=== PATIENT | male | born 1945 | race Caucasian/White ===

== ENCOUNTER 2021-09-12 18:15 | Inpatient (IN) | payer OTHER ==
[~2021-09-12] VITALS: Ht 185.4 cm; Wt 119.2 kg
[~2021-09-12 18:15] MED LIST: CYCL10TA19 PO; NAPR-514 PO
--- NOTE | 2021-09-12 20:09 | PDOC1 ---
History and Physical Date of Admission Date of Admission DATE: 09/12/21 TIME: 20:09 Identification/Chief Complaint Chief Complaint Weakness, left leg pain, renal failure Source Source: Caregiver, Chart review, Patient History of Present Illness History of Present Illness Mr Lozano is a 75yo male [place] with PMHx atrial fibrillation, hypertension, hyperlipidemia, type 2 diabetes mellitus, coronary artery disease, hypothyroidism, and generalized osteoarthritis who presented to [facility] in [place] on 09/10/2021 after he was doing poorly having difficulty walking at home even with walker and he remembers waking up in the kitchen facedown and was able to crawl to the couch contact EMS to be brought to the hospital. He thinks the day prior 09/09/2021 he was diagnosed with pneumonia at the [facility], he initially requested to go to [facility] but was diverted to [facility] due to high volume at [facility]. There he noted a week of progressive weakness and shortness of breath. He had CTPA which showed that there is no evidence of acute or chronic pulmonary emboli. There is bronchial wall thickening compatible with nonspecific bro nchitis. There are at least 2-4 mm solid noncalcified pulmonary nodules, cardiomegaly with 3-vessel coronary vascular calcification. EKG was afib. WBC 24.6, Hb 14.7, platelets 281 NA 132, K3.5, BUN 25, CR 2.3, glucose 172, bilirubin 1.3, AST 340, ALT 76, alk phos 118, high-sensitivity troponin I 46, TSH 3, COVID-19 PCR negative Was admitted with sepsis, treated aggressively with IV fluid, started on meropenem and vancomycin. Over the course of 3 days troponin peaked at 4 9711 9 lactic acid peaked at 4.1 on 1110 AST 77 ALT 150 albumin 2, level 11 NA 120 7K3.8, BUN 47, CR 4.3 vancomycin trough 26.2. Given his elevated troponin, cardiology was consulted at [facility]. Given his worsening renal function is called for transfer to [facility] for consideration of nephrology consultation. Seen bedside patient notes that before his initial admission at [facility] he was doing much worse than he currently is but he still can't walk on his own, thinks his left leg looks better. Past Medical History Past Medical History Significant for atrial fibrillation, hypertension, hyperlipidemia, type 2 diabetes mellitus, coronary artery disease, hypothyroidism, and generalized osteoarthritis. Cardiovascular: AFIB, CAD, HTN, Hyperlipidemia Endocrine: Diabetes, Hypothyroidism Past Surgical History Past Surgical History: Other (Cardiac ablation) Family History Family History He is apparently , has a girlfriend that is planning to move to stay with him. He has 5 daughters and 3 sons. He does not smoke, drink alcohol or use recreational drugs. Family History: Diabetes, Heart Disease, High Cholestrol, Hypertension Social History Smoke: No ALCOHOL: none Drugs: None Current Medications Current Medications Active Scripts Active Naproxen 500 Mg Tablet 1 Tab PO BID PRN Cyclobenzaprine Hcl 10 Mg Tablet 1 Tab PO TID PRN Allergies Allergies: Coded Allergies: Penicillins (Verified Allergy, Intermediate, 09/12/21) "i think im allergic to penicillin" ROS General: YES: Fatigue, Malaise; No: Chills, Night Sweats, Appetite, Other PSYCHOLOGICAL ROS: YES: Anxiety; No: Behavioral Disorder, Concentration difficultie, Decreased libido, Depression, Disorientation, Hallucinations, Hostility, Irritablity, Memory difficulties, Mood Swings, Obsessive thoughts, Physical abuse, Sexual abuse, Sleep disturbances, Suicidal ideation, Other Eyes: No Blurry vision, No Decreased vision, No Double vision, No Dry eyes, No Excessive tearing, No Eye Pain, No Itchy Eyes, No Loss of vision, No Photophobia, No Scotomata, No Uses contacts, No Uses glasses, No Other HEENT: No: Heacaches, Visual Changes, Hearing change, Nasal congestion, Nasal discharge, Oral lesions, Sinus pain, Sore Throat, Epistaxis, Sneezing, Snoring, Tinnitus, Vertigo, Vocal changes, Other ALLERGY AND IMMUNOLOGY: No: Hives, Insect Bite Sensitivity, Itchy/Watery Eyes, Nasal Congestion, Post Nasal Drip, Seasonal Allergies, Other Hematological and Lymphatic: No: Bleeding Problems, Blood Clots, Blood Transfusions, Brusing, Night Sweats, Pallor, Swollen Lymph Nodes, Other ENDOCRINE: No: Breast Changes, Galactorrhea, Hair Pattern Changes, Hot Flashes, Malaise/lethargy, Mood Swings, Palpitations, Polydipsia/polyuria, Skin Changes, Temperature Intolerance, Unexpected Weight Changes, Other Breast: No New/Changing Breast Lumps, No Nipple changes, No Nipple discharge, No Other Respiratory: No: Cough, Hemoptysis, Orthopnea, Pleuritic Pain, Shortness of breath, SOB with excertion, Sputum Changes, Stridor, Tachypnea, Wheezing, Other Cardiovascular: No Chest Pain, No Palpitations, No Orthopnea, No Paroxysmal Noc. Dyspnea, No Edema, No Lt Headedness, No Other Gastrointestinal: No Nausea, No Vomiting, No Abdominal Pain, No Diarrhea, No Constipation, No Melena, No Hematochezia, No Other Genitourinary: No Dysuria, No Frequency, No Incontinence, No Hematuria, No Retention, No Discharge, No Urgency, No Pain, No Flank Pain, No Other, No , No , No , No , No , No , No Musculoskeletal: Yes Gait Disturbance, Yes Joint Swelling, Yes Muscular Weakness; No Joint Pain, No Joint Stiffness, No Muscle Pain, No Pain In:, No Swelling In:, No Other Neurological: Yes Gait Disturbance; No Behavorial Changes, No Bowel/Bladder ControlChng, No Confusion, No Dizziness, No Headaches, No Impaired Coord/balance, No Memory Loss, No Numbness/Tingling, No Seizures, No Speech Problems, No Tremors, No Visual Changes, No Weakness, No Other Skin: Yes Rash, Yes Skin Lesion Changes Physical Exam General: Alert, Oriented X3, Cooperative, No acute distress HEENT: Atraumatic, PERRLA, EOMI, Mucous membr. moist/pink Lungs: Clear to auscultation, Normal air movement Heart: irregularly irregular Abdomen: Normal bowel sounds, Soft, No tenderness, No hepatosplenomegaly, No masses Extremities: No clubbing, No cyanosis, Normal pulses Skin: Other (His left leg is more erythematous, with lymphangitis extending all the way to the left groin. Bruising to left tibial plateau noted) Neuro: Normal speech, Normal tone, Sensation intact, Cranial nerves 3-12 NL, Reflexes 2+, Other (decreased strength bilateral legs) Psych/Mental Status: Mental status NL, Mood NL Images Images 09/12/2021 Chest radiograph: The heart is not enlarged. Aortic calcifications. Minimal left lung base patchy opacities likely atelectasis. No pleural effusion or pneumothorax. IMPRESSION: Minimal left lung base patchy opacities likely atelectasis. CTA CHEST 09/10/2021 7:35 AM FINDINGS: The thyroid gland is normal in appearance. Calcified mediastinal and right hilar lymph nodes suggest sequela prior granulomatous exposure. There is a right hilar lymph node measuring 0.9 cm. There are no pathologically enlarged axillary, mediastinal or hilar lymph nodes. The heart size is enlarged. Three-vessel coronary artery vascular calcifications are present. No significant pericardial effusion. Thoracic aorta is normal in course and caliber. Moderate calcified atheromatous plaque is identified involving the thoracic aorta. There is adequate opacification of the pulmonary arterial system. There there are no filling defects within the pulmonary arterial system to suggest acute or chronic pulmonary embolus. There is a 4 mm solid noncalcified pulmonary nodule in the right middle lobe (series 4, image 82). There is a 4 mm solid noncalcified pulmonary nodule in the left upper lobe (series 4, image 33). There are no pulmonary infiltrates. There are no pleural effusions. No pulmonary vascular congestion or pneumothorax. Visualized portions of the upper abdomen are within normal limits. Fusiform thickening of the adrenal glands may reflect adenomatous hyperplasia. No suspicious osseous lesions are visualized. IMPRESSION: There is no evidence for acute or chronic pulmonary embolism. There is bronchial wall thickening compatible nonspecific bronchitis. There are at least two 4 mm solid noncalcified pulmonary nodules as detailed above.Fleischner guidelines for incidentally detected pulmonary nodules suggests no routine follow-up for low risk patients and optional CT at 12 months for high risk patients with solid noncalcified pulmonary nodules less than 6 mm in size. Cardiomegaly with three-vessel coronary artery vascular calcifications. VTE Prophylaxis Ordered VTE Prophylaxis Devices: No VTE Pharmacological Prophylaxi: Yes Assessment/Plan Assessment/Plan A/P: Fall at home - with weakness. PT/OT for ADLs, may need skilled services on d/c Sepsis - was present prior to admission. Cont antibiotics LLE cellulitis - likely related to traumatic fall, will obtain left tibia radiograph. Cont antibiotics, will change to rocephin, doxycycline WILLY on CKD - baseline Cr ~2, now 4.3. Will consult nephrology for recs on further care Transaminitis - large transaminase elevation, not in shock, will monitor trend, check hepatitis serologies, TSH, iron, ferritin Troponin elevation - HS trop peaked at 497, likely demand ischemia Mild acute probable diastolic CHF secondary to IV hydration fluid overload Triple vessel disease CAD - on chest CTA. sees Dr. Henry at [facility] AFIB - s/p ablation. is permanent, rate controlled on Cardizem. Xarelto for stroke prophylaxis. Follow with [facility] cardiology, Dr. Henry Hypertension - cont home meds Hyperlipidemia - statin Hypothyroidism - on levothyroxine DM2 - sliding scale insulin Severe protein calorie malnutrition - due to infection, will have ice grinder to see FEN - cardiac diet PPX - xarelto FULL CODE Dispo - inpatient for above Justifications for Admission Other Justification FRED WATSON MD Sep 12, 2021 20:09
[2021-09-12] MEDS ORDERED: ONDANSETRON PF 4 MG/2 ML VIAL. IVP PRN ×2 (20:15→22:45)
[2021-09-12] MEDS ORDERED: ACETAMINOPHEN 325 MG TABLET. PO PRN (20:15)
[2021-09-12] MEDS ORDERED: fentaNYL PF VIAL 100 MCG/2 ML VIAL IVP PRN (20:15)
[2021-09-12] MEDS: DOXYCYCLINE HYCLATE 100 MG in IV DEXTROSE 5% 100ML 100 ML IV SCH (21:43)
[2021-09-12] MEDS: cefTRIAXone IV Push 1 GM VIAL. IVP SCH (21:43)
[2021-09-12] MEDS ORDERED: ACETAMINOPHEN 500 MG TABLET PO PRN (22:45)
[2021-09-12 23:00] VITALS: BP 95/64
[2021-09-12] MEDS: HEPARIN for SUB-Q USE 5,000 UNIT/ML VIAL. SQ SCH (23:04)
[2021-09-12] MEDS ORDERED: rOPINIRole 1 MG TABLET. PO ONE (23:04)
[2021-09-12] MEDS: ALBUTEROL SULFATE 2.5 MG/3 ML NEBU. NEB PRN (23:46)
[2021-09-13 03:00] VITALS: BP 155/65
[2021-09-13] MEDS: HEPARIN for SUB-Q USE 5,000 UNIT/ML VIAL. SQ SCH ×3 (05:25→22:00)
[2021-09-13] MEDS: LEVOTHYROXINE 75 MCG TABLET PO SCH (05:31)
[2021-09-13 05:53] LABS: BASO % 0 % (0-3); EOS % 0 % (0-3); HEMATOCRIT 32.4 % (39.0-53.0); HEMOGLOBIN 10.7 g/dL (13.0-17.5); LYMPH # 0.6 x10^3/uL (1.0-4.8); LYMPH % 8 % (24-48); MEAN CORPUSCULAR HEMOGLOBIN 27 pg (25-35); MEAN CORPUSCULAR HGB CONC 33 g/dL (31-37); MEAN CORPUSCULAR VOLUME 81 fL (79-100); MONO # 0.5 x10^3/uL (0.0-1.1); MONO % 7 % (0-9); NEUT # 5.7 x10^3/uL (1.8-7.7); NEUT % 84 % (31-73); PLATELET COUNT 170 x10^3/uL (140-400); RED CELL DISTRIBUTION WIDTH 18.1 % (11.5-14.5); WHITE BLOOD COUNT 6.8 x10^3/uL (4.0-11.0)
[2021-09-13 06:04] LABS: ALBUMIN 2.1 g/dL (3.4-5.0); ALBUMIN/GLOBULIN RATIO 0.6 (1.0-1.7); CALCIUM 7.9 mg/dL (8.5-10.1); CREATININE 4.6 mg/dL (0.7-1.3); GFR 12.6; TOTAL BILIRUBIN 0.4 mg/dL (0.2-1.0); TOTAL PROTEIN 5.8 g/dL (6.4-8.2)
[2021-09-13 08:00] VITALS: BP 146/71
[2021-09-13] MEDS: DOXYCYCLINE HYCLATE 100 MG in IV DEXTROSE 5% 100ML 100 ML IV SCH ×2 (09:31→20:44)
[2021-09-13] MEDS: busPIRone 10 MG TABLET. PO SCH ×2 (09:32→20:45)
[2021-09-13] MEDS: CYANOCOBALAMIN (VITAMIN B-12) 100 MCG TABLET. PO SCH (09:32)
[2021-09-13] MEDS: LACTOBACILLUS RHAMNOSUS GG 1 CAPSULE. PO SCH ×2 (09:32→20:45)
[2021-09-13] MEDS: CHOLECALCIFEROL (VITAMIN D3) 1,000 UNIT TABLET PO SCH (09:32)
[2021-09-13] MEDS: SENNOSIDES/DOCUSATE 8.6/50MG TABLET. PO SCH ×2 (09:33→20:45)
[2021-09-13] MEDS: rOPINIRole 1 MG TABLET. PO SCH ×3 (09:33→20:45)
[2021-09-13] MEDS: TRIAMCINOLONE ACETONIDE 0.5% TOPICAL CREAM 15GM TUBE. TP SCH ×2 (09:34→20:44)
--- NOTE | 2021-09-13 10:40 | RAD ---
EXAM: AP and lateral views left tibia/fibula DATE: 09/13/2021 7:42 AM INDICATION: Reason: Fall, left tibia plateau injury, pain / Spl. Instructions: / History: . COMPARISON: No Prior FINDINGS: Patellar enthesophytes. No knee joint effusion. No acute fracture or dislocation. Vascular calcificat ions are seen. Diffuse soft tissue swelling about the mid left lower leg to the ankle IMPRESSION: 1. No evidence of acute fracture or dislocation. 2. Evaluation of the tibial plateau is limited, can be further assessed with dedicated knee radiogra phs or CT if there is clinical concern for tibial plateau fracture. 3. Diffuse soft tissue swelling. Electronically signed by: Oziel Zavala MD (09/13/2021 10:38 AM) [id number]
--- NOTE | 2021-09-13 10:54 | NUR ---
SW following. Discussed with RN, pt from home with girlfriend, room air, cardiac diet. PT/OT ordered. RN advised no SW needs at this time. SW will continue to follow.
[2021-09-13 11:00] VITALS: BP 147/67
--- NOTE | 2021-09-13 11:17 | PDOC2 ---
CONSULT Date of Consult Date of Consult DATE: 09/13/21 TIME: 11:10 Reason for Consult Reason for Consult: WILLY Referring Physician Referring Physician: WALTER Identification/Chief Complaint Chief Complaint FALL Source Source: Chart review History of Present Illness Reason for Visit: HX OBTAINED FROM CHART. PT IS A VERY POOR HISTORIAN. THIS IS A 75 YR OLD WHO FELL AT HOME. WOKE UP ON THE KITCHEN FLOOR. ADMITTED TO [facility] WITH SOB. CONCERNS OF PNEUMONIA. TX THERE WITH ANTIBIOTICS. APPARENTLY THERE WAS CONCERNS OF PE AND A CTA WAS DONE THERE. HE THEN DEVELOPED [facility] AND WAS TRANSFERRED HERE. PT HAS CKD STAGE 3 WITH BASELINE CR OF ABOUT 2.0. CR NOW AT 4.3. NON OLIGURIC AND HEMODYNAMICALLY STABLE. VANC LEVEL OF 26.2. ALSO BEING EVALUATED BY CARDIOLOGY FOR INCREASING TROPONIN LEVELS. HE DOES NOT KNOW OF ANY HX OR PROBLEMS Past Medical History Cardiovascular: AFIB, CAD, HTN, Hyperlipidemia Renal/: Chronic renal insuff Endocrine: Diabetes, Hypothyroidism Past Surgical History Past Surgical History: Other (Cardiac ablation) Family History Family History: Diabetes, Heart Disease, High Cholestrol, Hypertension Social History No ALCOHOL: none Drugs: None Lives: with Family Current Medications Current Medications Current Medications Ceftriaxone Sodium (Rocephin) 1 gm Q24H IVP Last administered on 09/12/21at 21:43; Start 09/12/21 at 21:00 Doxycycline Hyclate 100 mg/ Dextrose 100 ml @ 50 mls/hr Q12HR IV Last administered on 09/13/21at 09:31; Start 09/12/21 at 21:00 Heparin Sodium (Porcine) (Heparin Sodium) 5,000 unit Q8HRS SQ Last administered on 09/13/21at 05:25; Start 09/12/21 at 22:00 Ondansetron HCl (Zofran) 4 mg PRN Q4HRS PRN IVP NAUSEA/VOMITING; Start 09/12/21 at 20:15; Stop 09/12/21 at 23:06; Status DC Acetaminophen (Tylenol) 650 mg PRN Q6HRS PRN PO MILD PAIN / TEMP > 100.3'F; Start 09/12/21 at 20:15; Stop 09/12/21 at 23:07; Status DC Fentanyl Citrate (Fentanyl 2ml Vial) 25 mcg PRN Q3HRS PRN IVP SEVERE PAIN 7-10; Start 09/12/21 at 20:15 Tramadol HCl (Ultram) 50 mg PRN Q6HRS PRN PO MOD TO SEVERE PAIN; Start 1 11/12/20 at 20:15 Acetaminophen (Tylenol) 1,000 mg PRN Q6HRS PRN PO pain/fever; Start 09/12/21 at 22:45 Ropinirole HCl (Requip) 2 mg TID PO Last administered on 09/13/21 09:33; Start 09/13/21 at 09:00 Vitamin D (Vitamin D3) 1,000 unit DAILY PO Last administered on 09/13/21 09:32; Start 09/13/21 at 09:00 Cyanocobalamin (Vitamin B-12) 200 mcg DAILY PO Last administered on 09/13/21 09:32; Start 09/13/21 at 09:00 Famotidine (Pepcid) 20 mg QHS PO ; Start 09/13/21 at 21:00 Fluticasone Propionate (Flonase) 2 spray QHS NS ; Start 09/13/21 at 21:00 Albuterol Sulfate (Ventolin Neb Soln) 2.5 mg PRN Q6HRS PRN NEB SHORTNESS OF BR EATH Last administered on 09/12/21at 23:46; Start 09/12/21 at 23:00 Lactobacillus Rhamnosus (Culturelle) 1 cap BID PO Last administered on 09/13/21at 09:32; Start 09/13/21 at 09:00 Levothyroxine Sodium (Synthroid) 75 mcg DAILY06 PO Last administered on 09/13/21 05:31; Start 09/13/21 at 06:00 Ondansetron HCl (Zofran) 4 mg PRN Q6HRS PRN IVP NAUSEA/VOMITING; Start 09/12/21 at 22:45 Triamcinolone Acetonide (Kenalog 0.5%) 1 wood BID TP Last administered on 09/13/21 09:34; Start 09/13/21 at 09:00 Buspirone HCl (Buspar) 10 mg BID PO Last administered on 09/13/21 09:32; Start 09/13/21 at 09:00 Diltiazem HCl (Cardizem 24hr Cd) 240 mg DAILY PO Last administered on 11/12/21at 09:33; Start 09/13/21 at 09:00 Ropinirole HCl (Requip) 2 mg TID ONCE PO Last administered on 09/12/21at 23:04; Start 09/12/21 at 23:04; Stop 09/12/21 at 23:05; Status DC Senna/Docusate Sodium (Senna Plus) 1 tab BID PO Last administered on 09/13/21at 09:33; Start 09/13/21 at 09:00 Active Scripts Active Naproxen 500 Mg Tablet 1 Tab PO BID PRN Cyclobenzaprine Hcl 10 Mg Tablet 1 Tab PO TID PRN Allergies Allergies: Coded Allergies: Penicillins (Verified Allergy, Intermediate, 09/12/21) "i think im allergic to penicillin" ROS Review of System UNABLE TO OBTAIN FROM THIS PT HE IS A VERY POOR HISTORIAN Physical Exam General: Alert, Oriented X3, Cooperative, No acute distress HEENT: Atraumatic Lungs: Clear to auscultation Heart: Regular rate Abdomen: Normal bowel sounds, Soft Extremities: No cyanosis Skin: No breakdown Neuro: Normal speech Psych/Mental Status: Mental status NL, Mood NL MUSCULOSKELETAL: No joint tenderness, No deformity, No swelling Vitals VITALS Vital Signs Date Time Temp Pulse Resp B/P (MAP) Pulse Ox O2 Delivery O2 Flow Rate FiO2 09/13/21 09:33 82 146/71 09/13/21 08:00 98.1 18 99 98.1 09/13/21 03:00 Room Air 09/12/21 23:00 2.0 Labs Labs Laboratory Tests Test 09/13/21 04:15 09/13/21 04:20 09/13/21 07:46 White Blood Count 6.8 x10^3/uL (4.0-11.0) Red Blood Count 4.00 x10^6/uL (4.30-5.70) Hemoglobin 10.7 g/dL (13.0-17.5) Hematocrit 32.4 % (39.0-53.0) Mean Corpuscular Volume 81 fL (79-100) Mean Corpuscular Hemoglobin 27 pg (25-35) Mean Corpuscular Hemoglobin Concent 33 g/dL (31-37) Red Cell Distribution Width 18.1 % (11.5-14.5) Platelet Count 170 x10^3/uL (140-400) Neutrophils (%) (Auto) 84 % (31-73) Lymphocytes (%) (Auto) 8 % (24-48) Monocytes (%) (Auto) 7 % (0-9) Eosinophils (%) (Auto) 0 % (0-3) Basophils (%) (Auto) 0 % (0-3) Neutrophils # (Auto) 5.7 x10^3/uL (1.8-7.7) Lymphocytes # (Auto) 0.6 x10^3/uL (1.0-4.8) Monocytes # (Auto) 0.5 x10^3/uL (0.0-1.1) Eosinophils # (Auto) 0.0 x10^3/uL (0.0-0.7) Basophils # (Auto) 0.0 x10^3/uL (0.0-0.2) Sodium Level 127 mmol/L (136-145) Potassium Level 4.0 mmol/L (3.5-5.1) Chloride Level 96 mmol/L (98-107) Carbon Dioxide Level 24 mmol/L (21-32) Anion Gap 7 (6-14) Blood Urea Nitrogen 48 mg/dL (8-26) Creatinine 4.6 mg/dL (0.7-1.3) Estimated GFR (Cockcroft-Gault) 12.6 BUN/Creatinine Ratio 10 (6-20) Glucose Level 131 mg/dL (70-99) Calcium Level 7.9 mg/dL (8.5-10.1) Ferritin 266 ng/mL (26-388) Total Bilirubin 0.4 mg/dL (0.2-1.0) Aspartate Amino Transf (AST/SGOT) 372 U/L (15-37) Alanine Aminotransferase (ALT/SGPT) 146 U/L (16-63) Alkaline Phosphatase 121 U/L (46-116) Total Protein 5.8 g/dL (6.4-8.2) Albumin 2.1 g/dL (3.4-5.0) Albumin/Globulin Ratio 0.6 (1.0-1.7) Troponin I High Sensitivity 45 ng/L (4-75) Thyroid Stimulating Hormone (TSH) 1.573 uIU/mL (0.358-3.74) Glucose (Fingerstick) 133 mg/dL (70-99) Laboratory Tests Test 09/13/21 04:15 09/13/21 04:20 09/13/21 07:46 White Blood Count 6.8 x10^3/uL (4.0-11.0) Red Blood Count 4.00 x10^6/uL (4.30-5.70) Hemoglobin 10.7 g/dL (13.0-17.5) Hematocrit 32.4 % (39.0-53.0) Mean Corpuscular Volume 81 fL (79-100) Mean Corpuscular Hemoglobin 27 pg (25-35) Mean Corpuscular Hemoglobin Concent 33 g/dL (31-37) Red Cell Distribution Width 18.1 % (11.5-14.5) Platelet Count 170 x10^3/uL (140-400) Neutrophils (%) (Auto) 84 % (31-73) Lymphocytes (%) (Auto) 8 % (24-48) Monocytes (%) (Auto) 7 % (0-9) Eosinophils (%) (Auto) 0 % (0-3) Basophils (%) (Auto) 0 % (0-3) Neutrophils # (Auto) 5.7 x10^3/uL (1.8-7.7) Lymphocytes # (Auto) 0.6 x10^3/uL (1.0-4.8) Monocytes # (Auto) 0.5 x10^3/uL (0.0-1.1) Eosinophils # (Auto) 0.0 x10^3/uL (0.0-0.7) Basophils # (Auto) 0.0 x10^3/uL (0.0-0.2) Sodium Level 127 mmol/L (136-145) Potassium Level 4.0 mmol/L (3.5-5.1) Chloride Level 96 mmol/L (98-107) Carbon Dioxide Level 24 mmol/L (21-32) Anion Gap 7 (6-14) Blood Urea Nitrogen 48 mg/dL (8-26) Creatinine 4.6 mg/dL (0.7-1.3) Estimated GFR (Cockcroft-Gault) 12.6 BUN/Creatinine Ratio 10 (6-20) Glucose Level 131 mg/dL (70-99) Calcium Level 7.9 mg/dL (8.5-10.1) Ferritin 266 ng/mL (26-388) Total Bilirubin 0.4 mg/dL (0.2-1.0) Aspartate Amino Transf (AST/SGOT) 372 U/L (15-37) Alanine Aminotransferase (ALT/SGPT) 146 U/L (16-63) Alkaline Phosphatase 121 U/L (46-116) Total Protein 5.8 g/dL (6.4-8.2) Albumin 2.1 g/dL (3.4-5.0) Albumin/Globulin Ratio 0.6 (1.0-1.7) Troponin I High Sensitivity 45 ng/L (4-75) Thyroid Stimulating Hormone (TSH) 1.573 uIU/mL (0.358-3.74) Glucose (Fingerstick) 133 mg/dL (70-99) Images Images EXAM: AP and lateral views left tibia/fibula DATE: 09/13/2021 7:42 AM INDICATION: Reason: Fall, left tibia plateau injury, pain / Spl. Instructions: / History: . COMPARISON: No Prior FINDINGS: Patellar enthesophytes. No knee joint effusion. No acute fracture or dislocation. Vascular calcifications are seen. Diffuse soft tissue swelling about the mid left lower leg to the ankle IMPRESSION: 1. No evidence of acute fracture or dislocation. 2. Evaluation of the tibial plateau is limited, can be further assessed with dedicated knee radiographs or CT if there is clinical concern for tibial plateau fracture. 3. Diffuse soft tissue swelling. Electronically signed by: Oziel Zavala MD (09/13/2021 10:38 AM) [id number] Assessment/Plan Assessment/Plan IMP CKD STAGE 3 WITH CR OF 2.0 WILLY WITH CR OF 4.6-MOST LIKELY CONTRAST RELATED FALL AT HOME RECENT SEPSIS LLE CELLULITIS CAD - WITH INCREASED TROPONIN LEVELS HTN DM II PLAN RENAL SONOGRAM HYDRATION AVOID VANC CHECK UA-R/O IN CHECK RENAL SONOGRAM CHECK CPK LABS IN AM WILL FOLLOW BARTOLOME CASTANON MD Sep 13, 2021 11:17
--- NOTE | 2021-09-13 11:28 | PDOC ---
KEANU KRAMER OFFICE COORDINATOR 09/13/21 1128: CARDIO Progress Notes Date and Time Date of Service 09/13/2021 Time of Evaluation 1120 Subjective Subjective: No Chest Pain, No shortness of breath, No Palpitations Vitals Vitals Vital Signs Date Time Temp Pulse Resp B/P (MAP) Pulse Ox O2 Delivery O2 Flow Rate FiO2 09/13/21 09:33 82 146/71 09/13/21 08:00 98.1 18 99 98.1 09/13/21 08:00 Room Air 09/12/21 23:00 2.0 Weight Weight [ ] Input and Output Intake and Output Intake and Output 09/13/21 07:00 Intake Total 120 ml Output Total 460 ml Balance -340 ml Intake Oral 120 ml Output Urine Total 460 ml Laboratory Labs Laboratory Tests Test 09/13/21 04:15 09/13/21 04:20 09/13/21 07:46 White Blood Count 6.8 x10^3/uL (4.0-11.0) Red Blood Count 4.00 x10^6/uL (4.30-5.70) Hemoglobin 10.7 g/dL (13.0-17.5) Hematocrit 32.4 % (39.0-53.0) Mean Corpuscular Volume 81 fL (79-100) Mean Corpuscular Hemoglobin 27 pg (25-35) Mean Corpuscular Hemoglobin Concent 33 g/dL (31-37) Red Cell Distribution Width 18.1 % (11.5-14.5) Platelet Count 170 x10^3/uL (140-400) Neutrophils (%) (Auto) 84 % (31-73) Lymphocytes (%) (Auto) 8 % (24-48) Monocytes (%) (Auto) 7 % (0-9) Eosinophils (%) (Auto) 0 % (0-3) Basophils (%) (Auto) 0 % (0-3) Neutrophils # (Auto) 5.7 x10^3/uL (1.8-7.7) Lymphocytes # (Auto) 0.6 x10^3/uL (1.0-4.8) Monocytes # (Auto) 0.5 x10^3/uL (0.0-1.1) Eosinophils # (Auto) 0.0 x10^3/uL (0.0-0.7) Basophils # (Auto) 0.0 x10^3/uL (0.0-0.2) Sodium Level 127 mmol/L (136-145) Potassium Level 4.0 mmol/L (3.5-5.1) Chloride Level 96 mmol/L (98-107) Carbon Dioxide Level 24 mmol/L (21-32) Anion Gap 7 (6-14) Blood Urea Nitrogen 48 mg/dL (8-26) Creatinine 4.6 mg/dL (0.7-1.3) Estimated GFR (Cockcroft-Gault) 12.6 BUN/Creatinine Ratio 10 (6-20) Glucose Level 131 mg/dL (70-99) Calcium Level 7.9 mg/dL (8.5-10.1) Ferritin 266 ng/mL (26-388) Total Bilirubin 0.4 mg/dL (0.2-1.0) Aspartate Amino Transf (AST/SGOT) 372 U/L (15-37) Alanine Aminotransferase (ALT/SGPT) 146 U/L (16-63) Alkaline Phosphatase 121 U/L (46-116) Total Protein 5.8 g/dL (6.4-8.2) Albumin 2.1 g/dL (3.4-5.0) Albumin/Globulin Ratio 0.6 (1.0-1.7) Troponin I High Sensitivity 45 ng/L (4-75) Thyroid Stimulating Hormone (TSH) 1.573 uIU/mL (0.358-3.74) Glucose (Fingerstick) 133 mg/dL (70-99) Physical Exam HEENT: Neck Supple W Full Motion Chest: Symmetric LUNGS: Other (diminished bases) Heart: irregularly irregular (AFIB) Abdomen: Other (protuberant) Extremities: Other (LLE cellulitis) Neurology: alert, oriented, follow commands Assessment Assessment 1. Weakness 2. Sepsis with LLE cellulitis 3. LLE cellulitis 4. Mild troponin elevation; high sensitivity highest 497. Most probably type II, demand ischemia. CP free now normalized 5. Severe WILLY on CKD; Cr ^ 3.6 s/p contrast for CTA 6. Mild acute probable diastolic CHF secondary to IV hydration, appears compensated 7. CAD noted on chest CTA. Denies prior LHC. 8. Persistent AFIB; previous ablation. rate controlled on Cardizem. on Xarelto for stroke prophylaxis. Follow with [facility] cardiology, Dr. Henry 9. Hypertension; controlled 10. Hyperlipidemia 11. Elevated LFTs 12. Hypothyroidism 13. Elevated d-dimer; CTA negative for PE Recommendations Cardizem for rate control DC xarelto. Start ASA. Will start on eliquis pending plans for any HD cath placement Avoid nephrotoxins Awaiting repeat lab, OSH records No statin with elevated LFTs Ongoing antibiotic therapy, treatment of LLE cellulitis Follow cultures Outpatient ischemic evaluation Consider outpatient referral for LAAO Supportive care Justicifation of Admission Dx: Justifications for Admission: Justification of Admission Dx: Yes RICHARDSON CROCKETT MD 09/13/21 1646: CARDIO Progress Notes Plan Plan Patient seen and examined. Agree with above nurse practitioner note. Case discussed with the [facility] wildlife control operator Dr. Lara. Patient had a creatinine of 1.3 on September 09. He had worsening renal failure prior to exposure to contrast as well. He has been on antibiotic therapy. Case discussed with Dr. Juarez. Supportive care from a cardiovascular standpoint. Agree with continued low-dose diuretics. No indication for right heart cath at this time. Could consider on Thursday if necessary based on nephrology evaluation. We will follow along closely. Thank you for this consultation KEANU KRAMER APRN Sep 13, 2021 11:28 RICHARDSON CROCKETT MD Sep 13, 2021 16:46
[2021-09-13 11:55] LABS: CHOLESTEROL/HDL RATIO 5.5
[2021-09-13] MEDS: IV NORMAL SALINE 1000ML BAG 1,000 ML IV SCH (12:48)
[2021-09-13] MEDS: ASPIRIN ENTERIC COATED 81 MG TABLET.DR. PO SCH (12:49)
--- NOTE | 2021-09-13 13:03 | CARD ---
MR#: [id number] Date of Study: 09/13/2021 Ordering Physician: KEANU KRAMER, Referring Physician: KEANU KRAMER Tech: Jair Calderon [facility] APPROVED REPORT EXAM: Two-dimensional and M-mode echocardiogram with Doppler and color Doppler. Other Information Quality : FairHR: 86bpm Rhythm : Atrial Fibrillation INDICATION Atrial Fibrillation Cardiac Disease: CAD Elevated troponin RISK FACTORS Hypertension Obesity Hyperlipidemia 2D DIMENSIONS Left Atrium(2D)5.1 (1.6-4.0cm)IVSd1.3 (0.7-1.1cm) Aortic Root(2D)3.6 (2.0-3.7cm)LVDd5.0 (3.9-5.9cm) LVOT Diameter2.0 (1.8-2.4cm)PWd1.3 (0.7-1.1cm) LVDs3.3 (2.5-4.0cm)FS (%) 34.7 % SV74.8 ml Aortic Valve AoV Peak Roberto.137.0cm/sAoV VTI25.4cm AO Peak GR.7.5mmHgLVOT Peak Roberto.109.9cm/s AO Mean GR.5mmHgAVA (VMAX)2.49cm2 Mitral Valve MV E Tmuwpwyn792.4cm/sMV E Peak Gr.7mmHg MV DECEL [id number] A Ytiglbzh37.4cm/s MV E Mean Gr.3mmHgE/A Ratio3.1 Pulmonary Valve PV Peak Rmulcnps39.5cm/s Tricuspid Valve TR P. [id number]/sTR Peak Gr.16mmHg Pulmonary Vein S1 Iskqjvbg42.6cm/sD2 Ibgrsaga69.8cm/s LEFT VENTRICLE The left ventricle is normal size. There is mild concentric left ventricular hypertrophy. The left ve ntricular systolic function is normal and the ejection fraction is within normal range. LV ejection f raction is 50-55%. There is normal LV segmental wall motion. No left ventricle thrombus noted on this study. There is no ventricular septal defect visualized. There is no left ventricular aneurysm. Ther e is no mass noted in the left ventricle. RIGHT VENTRICLE The right ventricle is normal size. There is normal right ventricular wall thickness. The right ventr icular systolic function is normal. ATRIA The left atrium is mild to moderately dilated. The right atrium is borderline dilated. The interatria l septum is intact with no evidence for an atrial septal defect or patent foramen ovale as noted on 2 -D or Doppler imaging. AORTIC VALVE The aortic valve is calcified but opens well. Doppler and Color Flow revealed no significant aortic r egurgitation. There is no significant aortic valvular stenosis. There is no aortic valvular vegetatio n. MITRAL VALVE The mitral valve is mildly thickened. There is no evidence of mitral valve prolapse. There is no mitr al valve stenosis. Doppler and Color-flow revealed mild mitral regurgitation. TRICUSPID VALVE The tricuspid valve is normal in structure and function. Doppler and Color Flow revealed trace tricus pid valve regurgitation. There is no tricuspid valve prolapse or vegetation. There is no tricuspid va lve stenosis. PULMONIC VALVE The pulmonary valve is normal in structure and function. Doppler and Color Flow revealed no pulmonic valvular regurgitation. There is no pulmonic valvular stenosis. GREAT VESSELS The aortic root is normal in size. The ascending aorta is normal in size. The pulmonary artery is nor mal. The IVC is dilated with blunted inspiratory response. PERICARDIAL EFFUSION There is no pleural effusion. There is no evidence of significant pericardial effusion. Critical Notification Critical Value: No <Conclusion> The left ventricle is normal size. The left ventricular systolic function is normal and the ejection fraction is within normal range. LV ejection fraction is 50-55%. There is mild concentric left ventricular hypertrophy. Doppler and Color Flow revealed no significant aortic regurgitation. There is no significant aortic valvular stenosis. Doppler and Color-flow revealed mild mitral regurgitation. Doppler and Color Flow revealed trace tricuspid valve regurgitation. Signed by : Frank Venegas MD Electronically Approved : 09/13/2021 13:02:41
[2021-09-13] MEDS: FUROSEMIDE 20 MG/2 ML VIAL. IVP SCH (13:57)
--- NOTE | 2021-09-13 14:58 | PDOC2 ---
GI CONSULT Date of Service: DATE: 09/13/21 TIME: 14:42 Reason For Consult: Transaminitis. HPI: HPI: 75 y/o who initially presented to [facility] with complaints of generalized weakness for a week. Had been diagnosed with pneumonia at the [facility], but diverted to [facility] due bed shortage. Had apparently had episode of syncope prior to presentation. Noted to have LLE cellulitis. Worsening renal function so transferred here. At [facility], elevated LFT's higher than here; have a downward trend. We were asked to see re: the LFT's. No h/o liver disease nor FH of same. Denies high-risk behavior such as IVDU. Never transfused. No real alcohol use. Elevated INR at [facility] but had been on Xa relto for afib. Visuallized portions of upper abdomen seen on CTA there felt normal. Denies other than occasional heartburn,; no dysphagia, PUD, GB, pancreatic issues. No tobacco use. Typically constipated, [facility] 2 [facility] No diarrhea or overt bleeding. >one colonoscopy in the past with polyps. Last exam 2017 [place]. Has had prior EGD recalled as normal. PMH: PMH: Afib, HTN, HLP, DM2, CAD, hypothyroidism, OA. Had prior cardiac ablation for the afib. FH: Family History: CAD, DM, Hyperlipidemia, Hypertension Social History: Smoke: No ALCOHOL: none Drugs: None ROS: GEN: Denies fevers, chills, sweats HEENT: Denies blurred vision, sore throat CV: Denies chest pain RESP: Denies shortness of air, cough GI: Per HPI : Denies hematuria, dysuria ENDO: Denies weight changes NEURO: Denies confusion, dizziness MSK: Denies weakness, joint pain/swelling SKIN: Denies jaundice, pruritus Vitals: Vitals: Vital Signs Date Time Temp Pulse Resp B/P (MAP) Pulse Ox O2 Delivery O2 Flow Rate FiO2 09/13/21 11:00 98.1 89 18 147/67 (93) 96 98.1 09/13/21 08:00 Room Air 09/12/21 23:00 2.0 Labs: Labs: Laboratory Tests Test 09/13/21 04:15 09/13/21 04:20 09/13/21 07:46 09/13/21 12:27 White Blood Count 6.8 x10^3/uL (4.0-11.0) Red Blood Count 4.00 x10^6/uL (4.30-5.70) Hemoglobin 10.7 g/dL (13.0-17.5) Hematocrit 32.4 % (39.0-53.0) Mean Corpuscular Volume 81 fL (79-100) Mean Corpuscular Hemoglobin 27 pg (25-35) Mean Corpuscular Hemoglobin Concent 33 g/dL (31-37) Red Cell Distribution Width 18.1 % (11.5-14.5) Platelet Count 170 x10^3/uL (140-400) Neutrophils (%) (Auto) 84 % (31-73) Lymphocytes (%) (Auto) 8 % (24-48) Monocytes (%) (Auto) 7 % (0-9) Eosinophils (%) (Auto) 0 % (0-3) Basophils (%) (Auto) 0 % (0-3) Neutrophils # (Auto) 5.7 x10^3/uL (1.8-7.7) Lymphocytes # (Auto) 0.6 x10^3/uL (1.0-4.8) Monocytes # (Auto) 0.5 x10^3/uL (0.0-1.1) Eosinophils # (Auto) 0.0 x10^3/uL (0.0-0.7) Basophils # (Auto) 0.0 x10^3/uL (0.0-0.2) Sodium Level 127 mmol/L (136-145) Potassium Level 4.0 mmol/L (3.5-5.1) Chloride Level 96 mmol/L (98-107) Carbon Dioxide Level 24 mmol/L (21-32) Anion Gap 7 (6-14) Blood Urea Nitrogen 48 mg/dL (8-26) Creatinine 4.6 mg/dL (0.7-1.3) Estimated GFR (Cockcroft-Gault) 12.6 BUN/Creatinine Ratio 10 (6-20) Glucose Level 131 mg/dL (70-99) Calcium Level 7.9 mg/dL (8.5-10.1) Ferritin 266 ng/mL (26-388) Total Bilirubin 0.4 mg/dL (0.2-1.0) Aspartate Amino Transf (AST/SGOT) 372 U/L (15-37) Alanine Aminotransferase (ALT/SGPT) 146 U/L (16-63) Alkaline Phosphatase 121 U/L (46-116) Total Protein 5.8 g/dL (6.4-8.2) Albumin 2.1 g/dL (3.4-5.0) Albumin/Globulin Ratio 0.6 (1.0-1.7) Triglycerides Level 124 mg/dL (0-150) Cholesterol Level 132 mg/dL (0-200) LDL Cholesterol, Calculated 83 mg/dL (0-100) VLDL Cholesterol, Calculated 25 mg/dL (0-40) Non-HDL Cholesterol Calculated 108 mg/dL (0-129) HDL Cholesterol 24 mg/dL (40-60) Cholesterol/HDL Ratio 5.5 Hepatitis A IgM Antibody Nonreactive (Nonreactive) Hepatitis B Surface Antigen Nonreactive (Nonreactive) Hepatitis B Core IgM Antibody Nonreactive (Nonreactive) Hepatitis C IgG Antibody Nonreactive (Nonreactive) Troponin I High Sensitivity 45 ng/L (4-75) Thyroid Stimulating Hormone (TSH) 1.573 uIU/mL (0.358-3.74) Glucose (Fingerstick) 133 mg/dL (70-99) 143 mg/dL (70-99) Allergies: Coded Allergies: Penicillins (Verified Allergy, Intermediate, 09/12/21) "i think im allergic to penicillin" Medications: Current Medications Medications (Trade) Dose Ordered Sig/Lisa Route PRN Reason Start Time Stop Time Status Last Admin Dose Admin Ceftriaxone Sodium (Rocephin) 1 gm Q24H IVP 09/12/21 21:00 09/12/21 21:43 Doxycycline Hyclate 100 mg/ Dextrose 100 ml @ 50 mls/hr Q12HR IV 09/12/21 21:00 09/13/21 09:31 Heparin Sodium (Porcine) (Heparin Sodium) 5,000 unit Q8HRS SQ 09/12/21 22:00 09/13/21 14:00 Ropinirole HCl (Requip) 2 mg TID PO 09/13/21 09:00 09/13/21 13:56 Vitamin D (Vitamin D3) 1,000 unit DAILY PO 09/13/21 09:00 09/13/21 09:32 Cyanocobalamin (Vitamin B-12) 200 mcg DAILY PO 09/13/21 09:00 09/13/21 09:32 Albuterol Sulfate (Ventolin Neb Soln) 2.5 mg PRN Q6HRS PRN NEB SHORTNESS OF BREATH 09/12/21 23:00 09/12/21 23:46 Lactobacillus Rhamnosus (Culturelle) 1 cap BID PO 09/13/21 09:00 09/13/21 09:32 Levothyroxine Sodium (Synthroid) 75 mcg DAILY06 PO 09/13/21 06:00 09/13/21 05:31 Triamcinolone Acetonide (Kenalog 0.5%) 1 wood BID TP 09/13/21 09:00 09/13/21 09:34 Buspirone HCl (Buspar) 10 mg BID PO 09/13/21 09:00 09/13/21 09:32 Diltiazem HCl (Cardizem 24hr Cd) 240 mg DAILY PO 09/13/21 09:00 09/13/21 09:33 Ropinirole HCl (Requip) 2 mg TID ONCE PO 09/12/21 23:04 09/12/21 23:05 DC 09/12/21 23:04 Senna/Docusate Sodium (Senna Plus) 1 tab BID PO 09/13/21 09:00 09/13/21 09:33 Sodium Chloride 1,000 ml @ 75 mls/hr [id number] IV 09/13/21 11:30 09/13/21 12:48 Aspirin (Ecotrin) 81 mg [id number] PO 09/13/21 12:30 09/13/21 12:49 Furosemide (Lasix) 20 mg [id number] IVP 09/13/21 14:00 09/13/21 13:57 Imaging: Imaging: No GI imaging. PE: GEN: NAD HEENT: Atraumatic, PERRLA LUNGS: CTAB HEART: RRR, no murmurs ABD: NABS, S/ND/NT, no masses, obese EXTREMITY: No edema. "Firey" LLE. SKIN: No rashes, no jaundice NEURO/PSYCH: A & O 3 A/P: A/P: IMP: Elevated LFT's but normal bilirubin. These are likely multifactorial due to hypotension, infection, meds, etc. Trend is favorable and no risk factors for other issues. H/o heartburn. Chronic constipation. H/o polyps; clear 2017 and 5-year f/u recommended. REC: Continue treating presenting complaints. Will order his usual Senna. Will check hepatitis markers, iron studies and sonogram, but doubtful will find anything. Continue antisecretory. Follow LFT's. Thanks. Off the weekend. Coverage available if needed. BLANK PEÑA MD Sep 13, 2021 14:58
[2021-09-13 15:00] VITALS: BP 145/66
--- NOTE | 2021-09-13 16:24 | PDOC ---
PROGRESS NOTES Date of Service: DATE: 09/13/21 TIME: 16:22 Chief Complaint Chief Complaint Fall at home - with weakness. PT/OT for ADLs, may need skilled services on d/c Sepsis - was present prior to admission. Cont antibiotics LLE cellulitis - likely related to traumatic fall, will obtain left tibia radiograph. Cont antibiotics, will change to rocephin, doxycycline WILLY on CKD - baseline Cr ~2, now 4.3. Will consult nephrology for recs on further care Transaminitis - large transaminase elevation, not in shock, will monitor trend, check hepatitis serologies, TSH, iron, ferritin Troponin elevation - HS trop peaked at 497, likely demand ischemia Mild acute probable diastolic CHF secondary to IV hydration fluid overload Triple vessel disease CAD - on chest CTA. sees Dr. Henry at [facility] AFIB - s/p ablation. is permanent, rate controlled on Cardizem. Xarelto for stroke prophylaxis. Follow with [place] cardiology, Dr. Henry Hypertension - cont home meds Hyperlipidemia - statin Hypothyroidism - on levothyroxine DM2 - sliding scale insulin Severe protein calorie malnutrition - due to infection, will have correctional casework specialist to see FEN - cardiac diet PPX - xarelto FULL CODE Dispo - inpatient for above History of Present Illness History of Present Illness Mr Lozano is a 75yo male [place] with PMHx atrial fibrillation, hypertension, hyperlipidemia, type 2 diabetes mellitus, coronary artery disease, hypothyroidism, and generalized osteoarthritis who presented to [place] [facility] in [place] on 09/10/2021 after he was doing poorly having difficulty walking at home even with walker and he remembers waking up in the kitchen [facility] and was able to crawl to the couch contact EMS to be brought to the hospital. He thinks the day prior 09/09/2021 he was diagnosed with pneumonia at the [facility], he initially requested to go to [facility] but was diverted to [facility] due to high volume at [facility]. There he noted a week of progressive weakness and shortness of breath. He had CTPA which showed that there is no evidence of acute or chronic pulmonary emboli. There is bronchial wall thickening compatible with nonspecific bronchitis. There are at least 2-4 mm solid noncalcified pulmonary nodules, cardiomegaly with 3-vessel coronary vascular calcification. EKG was afib. WBC 24.6, Hb 14.7, platelets 281 NA 132, K3.5, BUN 25, CR 2.3, glucose 172, bilirubin 1.3, AST 340, ALT 76, alk phos 118, high-sensitivity troponin I 46, TSH 3, COVID-19 PCR negative Was admitted with sepsis, treated aggressively with IV fluid, started on meropenem and vancomycin. Over the course of 3 days troponin peaked at 4 9711 9 lactic acid peaked at 4.1 on 11 9, 1110 AST 77 ALT 150 albumin 2, level 11 NA 120 7K3.8, BUN 47, CR 4.3 vancomycin trough 26.2. Given his elevated troponin, cardiology was consulted at [facility]. Given his worsening renal function is called for transfer to [facility] for consideration of nephrology consultation. Seen bedside patient notes that before his initial admission at [facility] he was doing much worse than he currently is but he still can't walk on his own, thinks his left leg looks be 09/13/2021 No acute events reported overnight, case discussed with nursing staff patient in no acute distress no complaints during my visit Still complaining of left leg discomfort but greatly improved. Reassurance provided Reassess in the a.m. Follow recommendations from consultants Vitals Vitals Vital Signs Date Time Temp Pulse Resp B/P (MAP) Pulse Ox O2 Delivery O2 Flow Rate FiO2 09/13/21 15:00 100.0 79 19 145/66 (92) 98 100.0 09/13/21 08:00 Room Air 09/12/21 23:00 2.0 Physical Exam General: Alert, Oriented X3, Cooperative, No acute distress Heart: Regular rate Abdomen: Normal bowel sounds, Soft Extremities: No cyanosis Skin: No breakdown Labs LABS Laboratory Tests Test 09/13/21 04:15 09/13/21 04:20 09/13/21 07:46 09/13/21 12:27 White Blood Count 6.8 x10^3/uL (4.0-11.0) Red Blood Count 4.00 x10^6/uL (4.30-5.70) Hemoglobin 10.7 g/dL (13.0-17.5) Hematocrit 32.4 % (39.0-53.0) Mean Corpuscular Volume 81 fL (79-100) Mean Corpuscular Hemoglobin 27 pg (25-35) Mean Corpuscular Hemoglobin Concent 33 g/dL (31-37) Red Cell Distribution Width 18.1 % (11.5-14.5) Platelet Count 170 x10^3/uL (140-400) Neutrophils (%) (Auto) 84 % (31-73) Lymphocytes (%) (Auto) 8 % (24-48) Monocytes (%) (Auto) 7 % (0-9) Eosinophils (%) (Auto) 0 % (0-3) Basophils (%) (Auto) 0 % (0-3) Neutrophils # (Auto) 5.7 x10^3/uL (1.8-7.7) Lymphocytes # (Auto) 0.6 x10^3/uL (1.0-4.8) Monocytes # (Auto) 0.5 x10^3/uL (0.0-1.1) Eosinophils # (Auto) 0.0 x10^3/uL (0.0-0.7) Basophils # (Auto) 0.0 x10^3/uL (0.0-0.2) Sodium Level 127 mmol/L (136-145) Potassium Level 4.0 mmol/L (3.5-5.1) Chloride Level 96 mmol/L (98-107) Carbon Dioxide Level 24 mmol/L (21-32) Anion Gap 7 (6-14) Blood Urea Nitrogen 48 mg/dL (8-26) Creatinine 4.6 mg/dL (0.7-1.3) Estimated GFR (Cockcroft-Gault) 12.6 BUN/Creatinine Ratio 10 (6-20) Glucose Level 131 mg/dL (70-99) Calcium Level 7.9 mg/dL (8.5-10.1) Ferritin 266 ng/mL (26-388) Total Bilirubin 0.4 mg/dL (0.2-1.0) Aspartate Amino Transf (AST/SGOT) 372 U/L (15-37) Alanine Aminotransferase (ALT/SGPT) 146 U/L (16-63) Alkaline Phosphatase 121 U/L (46-116) Total Protein 5.8 g/dL (6.4-8.2) Albumin 2.1 g/dL (3.4-5.0) Albumin/Globulin Ratio 0.6 (1.0-1.7) Triglycerides Level 124 mg/dL (0-150) Cholesterol Level 132 mg/dL (0-200) LDL Cholesterol, Calculated 83 mg/dL (0-100) VLDL Cholesterol, Calculated 25 mg/dL (0-40) Non-HDL Cholesterol Calculated 108 mg/dL (0-129) HDL Cholesterol 24 mg/dL (40-60) Cholesterol/HDL Ratio 5.5 Vitamin B12 Level 1485 pg/mL (247-911) Hepatitis A IgM Antibody Nonreactive (Nonreactive) Hepatitis B Surface Antigen Nonreactive (Nonreactive) Hepatitis B Core IgM Antibody Nonreactive (Nonreactive) Hepatitis C IgG Antibody Nonreactive (Nonreactive) Troponin I High Sensitivity 45 ng/L (4-75) Thyroid Stimulating Hormone (TSH) 1.573 uIU/mL (0.358-3.74) Glucose (Fingerstick) 133 mg/dL (70-99) 143 mg/dL (70-99) Review of Systems Review of Systems Review of systems pertinent as per HPI otherwise 14 point review of system is negative Comment Review of Relevant I have reviewed the following items vincenzo (where applicable) has been applied. Labs Laboratory Tests Test 09/13/21 04:15 09/13/21 04:20 09/13/21 07:46 09/13/21 12:27 White Blood Count 6.8 x10^3/uL (4.0-11.0) Red Blood Count 4.00 x10^6/uL (4.30-5.70) Hemoglobin 10.7 g/dL (13.0-17.5) Hematocrit 32.4 % (39.0-53.0) Mean Corpuscular Volume 81 fL (79-100) Mean Corpuscular Hemoglobin 27 pg (25-35) Mean Corpuscular Hemoglobin Concent 33 g/dL (31-37) Red Cell Distribution Width 18.1 % (11.5-14.5) Platelet Count 170 x10^3/uL (140-400) Neutrophils (%) (Auto) 84 % (31-73) Lymphocytes (%) (Auto) 8 % (24-48) Monocytes (%) (Auto) 7 % (0-9) Eosinophils (%) (Auto) 0 % (0-3) Basophils (%) (Auto) 0 % (0-3) Neutrophils # (Auto) 5.7 x10^3/uL (1.8-7.7) Lymphocytes # (Auto) 0.6 x10^3/uL (1.0-4.8) Monocytes # (Auto) 0.5 x10^3/uL (0.0-1.1) Eosinophils # (Auto) 0.0 x10^3/uL (0.0-0.7) Basophils # (Auto) 0.0 x10^3/uL (0.0-0.2) Sodium Level 127 mmol/L (136-145) Potassium Level 4.0 mmol/L (3.5-5.1) Chloride Level 96 mmol/L (98-107) Carbon Dioxide Level 24 mmol/L (21-32) Anion Gap 7 (6-14) Blood Urea Nitrogen 48 mg/dL (8-26) Creatinine 4.6 mg/dL (0.7-1.3) Estimated GFR (Cockcroft-Gault) 12.6 BUN/Creatinine Ratio 10 (6-20) Glucose Level 131 mg/dL (70-99) Calcium Level 7.9 mg/dL (8.5-10.1) Ferritin 266 ng/mL (26-388) Total Bilirubin 0.4 mg/dL (0.2-1.0) Aspartate Amino Transf (AST/SGOT) 372 U/L (15-37) Alanine Aminotransferase (ALT/SGPT) 146 U/L (16-63) Alkaline Phosphatase 121 U/L (46-116) Total Protein 5.8 g/dL (6.4-8.2) Albumin 2.1 g/dL (3.4-5.0) Albumin/Globulin Ratio 0.6 (1.0-1.7) Triglycerides Level 124 mg/dL (0-150) Cholesterol Level 132 mg/dL (0-200) LDL Cholesterol, Calculated 83 mg/dL (0-100) VLDL Cholesterol, Calculated 25 mg/dL (0-40) Non-HDL Cholesterol Calculated 108 mg/dL (0-129) HDL Cholesterol 24 mg/dL (40-60) Cholesterol/HDL Ratio 5.5 Vitamin B12 Level 1485 pg/mL (247-911) Hepatitis A IgM Antibody Nonreactive (Nonreactive) Hepatitis B Surface Antigen Nonreactive (Nonreactive) Hepatitis B Core IgM Antibody Nonreactive (Nonreactive) Hepatitis C IgG Antibody Nonreactive (Nonreactive) Troponin I High Sensitivity 45 ng/L (4-75) Thyroid Stimulating Hormone (TSH) 1.573 uIU/mL (0.358-3.74) Glucose (Fingerstick) 133 mg/dL (70-99) 143 mg/dL (70-99) Laboratory Tests Test 09/13/21 04:15 09/13/21 04:20 09/13/21 07:46 09/13/21 12:27 White Blood Count 6.8 x10^3/uL (4.0-11.0) Red Blood Count 4.00 x10^6/uL (4.30-5.70) Hemoglobin 10.7 g/dL (13.0-17.5) Hematocrit 32.4 % (39.0-53.0) Mean Corpuscular Volume 81 fL (79-100) Mean Corpuscular Hemoglobin 27 pg (25-35) Mean Corpuscular Hemoglobin Concent 33 g/dL (31-37) Red Cell Distribution Width 18.1 % (11.5-14.5) Platelet Count 170 x10^3/uL (140-400) Neutrophils (%) (Auto) 84 % (31-73) Lymphocytes (%) (Auto) 8 % (24-48) Monocytes (%) (Auto) 7 % (0-9) Eosinophils (%) (Auto) 0 % (0-3) Basophils (%) (Auto) 0 % (0-3) Neutrophils # (Auto) 5.7 x10^3/uL (1.8-7.7) Lymphocytes # (Auto) 0.6 x10^3/uL (1.0-4.8) Monocytes # (Auto) 0.5 x10^3/uL (0.0-1.1) Eosinophils # (Auto) 0.0 x10^3/uL (0.0-0.7) Basophils # (Auto) 0.0 x10^3/uL (0.0-0.2) Sodium Level 127 mmol/L (136-145) Potassium Level 4.0 mmol/L (3.5-5.1) Chloride Level 96 mmol/L (98-107) Carbon Dioxide Level 24 mmol/L (21-32) Anion Gap 7 (6-14) Blood Urea Nitrogen 48 mg/dL (8-26) Creatinine 4.6 mg/dL (0.7-1.3) Estimated GFR (Cockcroft-Gault) 12.6 BUN/Creatinine Ratio 10 (6-20) Glucose Level 131 mg/dL (70-99) Calcium Level 7.9 mg/dL (8.5-10.1) Ferritin 266 ng/mL (26-388) Total Bilirubin 0.4 mg/dL (0.2-1.0) Aspartate Amino Transf (AST/SGOT) 372 U/L (15-37) Alanine Aminotransferase (ALT/SGPT) 146 U/L (16-63) Alkaline Phosphatase 121 U/L (46-116) Total Protein 5.8 g/dL (6.4-8.2) Albumin 2.1 g/dL (3.4-5.0) Albumin/Globulin Ratio 0.6 (1.0-1.7) Triglycerides Level 124 mg/dL (0-150) Cholesterol Level 132 mg/dL (0-200) LDL Cholesterol, Calculated 83 mg/dL (0-100) VLDL Cholesterol, Calculated 25 mg/dL (0-40) Non-HDL Cholesterol Calculated 108 mg/dL (0-129) HDL Cholesterol 24 mg/dL (40-60) Cholesterol/HDL Ratio 5.5 Vitamin B12 Level 1485 pg/mL (247-911) Hepatitis A IgM Antibody Nonreactive (Nonreactive) Hepatitis B Surface Antigen Nonreactive (Nonreactive) Hepatitis B Core IgM Antibody Nonreactive (Nonreactive) Hepatitis C IgG Antibody Nonreactive (Nonreactive) Troponin I High Sensitivity 45 ng/L (4-75) Thyroid Stimulating Hormone (TSH) 1.573 uIU/mL (0.358-3.74) Glucose (Fingerstick) 133 mg/dL (70-99) 143 mg/dL (70-99) Medications Current Medications Ceftriaxone Sodium (Rocephin) 1 gm Q24H IVP Last administered on 09/12/21at 21:43; Start 09/12/21 at 21:00 Doxycycline Hyclate 100 mg/ Dextrose 100 ml @ 50 mls/hr Q12HR IV Last administered on 09/13/21at 09:31; Start 09/12/21 at 21:00 Heparin Sodium (Porcine) (Heparin Sodium) 5,000 unit Q8HRS SQ Last administered on 09/13/21at 14:00; Start 09/12/21 at 22:00 Ondansetron HCl (Zofran) 4 mg PRN Q4HRS PRN IVP NAUSEA/VOMITING; Start 09/12/21 at 20:15; Stop 09/12/21 at 23:06; Status DC Acetaminophen (Tylenol) 650 mg PRN Q6HRS PRN PO MILD PAIN / TEMP > 100.3'F; Start 09/12/21 at 20:15; Stop 09/12/21 at 23:07; Status DC Fentanyl Citrate (Fentanyl 2ml Vial) 25 mcg PRN Q3HRS PRN IVP SEVERE PAIN 7-10; Start 09/12/21 at 20:15 Tramadol HCl (Ultram) 50 mg PRN Q6HRS PRN PO MOD TO SEVERE PAIN; Start 09/12/21 at 20:15 Acetaminophen (Tylenol) 1,000 mg PRN Q6HRS PRN PO pain/fever; Start 09/12/21 at 22:45 Ropinirole HCl (Requip) 2 mg TID PO Last administered on 09/13/21at 13:56; Start 09/13/21 at 09:00 Vitamin D (Vitamin D3) 1,000 unit DAILY PO Last administered on 09/13/21at 09:32; Start 09/13/21 at 09:00 Cyanocobalamin (Vitamin B-12) 200 mcg DAILY PO Last administered on 09/13/21at 09:32; Start 09/13/21 at 09:00 Famotidine (Pepcid) 20 mg QHS PO ; Start 09/13/21 at 21:00 Fluticasone Propionate (Flonase) 2 spray QHS NS ; Start 09/13/21 at 21:00 Albuterol Sulfate (Ventolin Neb Soln) 2.5 mg PRN Q6HRS PRN NEB SHORTNESS OF BREATH Last administered on 09/12/21at 23:46; Start 09/12/21 at 23:00 Lactobacillus Rhamnosus (Culturelle) 1 cap BID PO Last administered on 09/13/21at 09:32; Start 09/13/21 at 09:00 Levothyroxine Sodium (Synthroid) 75 mcg DAILY06 PO Last administered on 09/13/21at 05:31; Start 09/13/21 at 06:00 Ondansetron HCl (Zofran) 4 mg PRN Q6HRS PRN IVP NAUSEA/VOMITING; Start 09/12/21 at 22:45 Triamcinolone Acetonide (Kenalog 0.5%) 1 wood BID TP Last administered on 09/13/21 09:34; Start 09/13/21 at 09:00 Buspirone HCl (Buspar) 10 mg BID PO Last administered on 09/13/21 09:32; Start 09/13/21 at 09:00 Diltiazem HCl (Cardizem 24hr Cd) 240 mg DAILY PO Last administered on 09/13/21 09:33; Start 09/13/21 at 09:00 Ropinirole HCl (Requip) 2 mg TID ONCE PO Last administered on 09/12/21at 23:04; Start 09/12/21 at 23:04; Stop 09/12/21 at 23:05; Status DC Senna/Docusate Sodium (Senna Plus) 1 tab BID PO Last administered on 09/13/21 09:33; Start 09/13/21 at 09:00 Sodium Chloride 1,000 ml @ 75 mls/hr [id number] IV Last administered on 09/13/21at 12:48; Start 09/13/21 at 11:30 Aspirin (Ecotrin) 81 mg [id number] PO Last administered on 09/13/21 12:49; Start 09/13/21 at 12:30 Furosemide (Lasix) 20 mg [id number] IVP Last administered on 09/13/21at 13:57; Start 09/13/21 at 14:00 Active Scripts Active Naproxen 500 Mg Tablet 1 Tab PO BID PRN Cyclobenzaprine Hcl 10 Mg Tablet 1 Tab PO TID PRN Vitals/I & O Vital Sign - Last 24 Hours 09/12/21 09/12/21 09/12/21 09/13/21 20:15 23:00 23:46 03:00 Temp 97.7 98.4 97.7 98.4 Pulse 72 73 Resp 20 20 B/P (MAP) 95/64 (74) 155/65 (95) Pulse Ox 98 96 98 O2 Delivery Room Air Nasal Cannula Room Air Room Air O2 Flow Rate 2.0 09/13/21 09/13/21 09/13/21 09/13/21 08:00 08:00 09:33 11:00 Temp 98.1 98.1 98.1 98.1 Pulse 82 82 89 Resp 18 18 B/P (MAP) 146/71 (96) 146/71 147/67 (93) Pulse Ox 99 96 O2 Delivery Room Air 09/13/21 15:00 Temp 100.0 100.0 Pulse 79 Resp 19 B/P (MAP) 145/66 (92) Pulse Ox 98 Intake and Output 09/12/21 09/12/21 09/13/21 15:00 23:00 07:00 Intake Total 120 ml Output Total 460 ml Balance -340 ml Justicifation of Admission Dx: Justifications for Admission: Justification of Admission Dx: Yes TIP CARROLL MD Sep 13, 2021 16:24
--- NOTE | 2021-09-13 16:43 | RAD ---
EXAM: RENAL ULTRASOUND CLINICAL HISTORY: Acute renal failure COMPARISON: None available. TECHNIQUE: Ultrasound examination of the bilateral kidneys and urinary bladder was performed. FINDINGS: The right kidney measures 13.5 x 6.7 x 7.8 cm. The left kidney measures 13.4 x 6.7 x 6.6 cm. The urin russel bladder is mildly distended. Left ureteral jet is not identified within the urinary bladder .The urinary bladder is mildly distended. Prevoid urinary bladder volume is 403 cc IMPRESSION: 1. No evidence of hydronephrosis. The left ureteral jet is not identified in the urinary bladder. Electronically signed by: Zach Gregg MD (09/13/2021 4:40 PM) [id number]
[2021-09-13 17:37] LABS: BILIRUBIN,URINE NEGATIVE (NEG); CLARITY,URINE CLOUDY; COLOR,URINE YELLOW; NITRITE,URINE NEGATIVE (NEG); PH,URINE 5.5 (<5.0-8.0); PROTEIN,URINE NEGATIVE (NEG-TRACE); UROBILINOGEN,URINE 0.2 mg/dL (0.2 mg/dL)
[2021-09-13 17:43] LABS: AMORPHOUS SEDIMENT,UR PRESENT /HPF; BACTERIA,URINE 0 /HPF (0-FEW); GRANULAR CASTS,URINE MODERATE /HPF
[2021-09-13 19:00] VITALS: BP 97/61
[2021-09-13] MEDS: cefTRIAXone IV Push 1 GM VIAL. IVP SCH (20:44)
[2021-09-13] MEDS: FAMOTIDINE 20 MG TABLET. PO SCH (20:45)
[2021-09-13] MEDS: FLUTICASONE 50MCG/NASAL SPRAY 16GM BOTTLE. NS SCH (20:45)
[2021-09-13 23:00] VITALS: BP 130/62
[2021-09-14] MEDS: IV NORMAL SALINE 1000ML BAG 1,000 ML IV SCH ×2 (00:50→14:10)
[2021-09-14 03:00] VITALS: BP 137/64
[2021-09-14] MEDS: traMADol 50 MG TABLET PO PRN (03:53)
[2021-09-14] MEDS: LEVOTHYROXINE 75 MCG TABLET PO SCH (05:57)
[2021-09-14] MEDS: HEPARIN for SUB-Q USE 5,000 UNIT/ML VIAL. SQ SCH ×3 (06:00→23:14)
[2021-09-14 06:39] LABS: UR POTASSIUM 12.2 mmol/L (Not Estab.)
[2021-09-14 07:00] VITALS: BP 145/76
[2021-09-14 07:54] LABS: CALCIUM 7.6 mg/dL (8.5-10.1); CREATININE 4.4 mg/dL (0.7-1.3); GFR 13.2; POTASSIUM 4.1 mmol/L (3.5-5.1)
[2021-09-14 07:55] LABS: ALBUMIN 2.1 g/dL (3.4-5.0); DIRECT BILIRUBIN 0.2 mg/dL (0.0-0.2); TOTAL BILIRUBIN 0.5 mg/dL (0.2-1.0); TOTAL PROTEIN 5.2 g/dL (6.4-8.2)
--- NOTE | 2021-09-14 08:40 | RAD ---
EXAM: ULTRASOUND ABDOMEN LIMITED CLINICAL HISTORY: Reason: abnormal LFT's; / Spl. Instructions: / History: COMPARISON: None available. TECHNIQUE: Limited ultrasound examination of the right upper quadrant of the abdomen was performed. FINDINGS: The liver is homogeneous in echotexture. No significant focal liver lesion is seen. Liver size is bor derline increased 18.4 cm length. The biliary tree does not appear dilated. The gallbladder was not well distended. The wall is borderline thickened at 3 mm. No stones are seen. There is no pericholecystic fluid. The right kidney has normal cortical thickness and echogenicity without apparent mass or obstruction. It measures 13.4 cm in length. Pancreas was poorly seen. Visualized segments of the abdominal aorta and inferior vena cava show no abnormality, although they were largely obscured. IMPRESSION: Poorly distended gallbladder without visible stones. Borderline wall thickening could relate to the p oor distention. Borderline hepatomegaly. Electronically signed by: Frank Juarez Jr., MD (09/14/2021 8:37 AM) [id number]
[2021-09-14] MEDS: TRIAMCINOLONE ACETONIDE 0.5% TOPICAL CREAM 15GM TUBE. TP SCH ×2 (10:33→21:00)
[2021-09-14] MEDS: LACTOBACILLUS RHAMNOSUS GG 1 CAPSULE. PO SCH ×2 (10:33→21:26)
[2021-09-14] MEDS: ASPIRIN ENTERIC COATED 81 MG TABLET.DR. PO SCH (10:33)
[2021-09-14] MEDS: DOXYCYCLINE HYCLATE 100 MG in IV DEXTROSE 5% 100ML 100 ML IV SCH ×2 (10:34→21:27)
[2021-09-14] MEDS: CHOLECALCIFEROL (VITAMIN D3) 1,000 UNIT TABLET PO SCH (10:35)
[2021-09-14] MEDS: CYANOCOBALAMIN (VITAMIN B-12) 100 MCG TABLET. PO SCH (10:35)
[2021-09-14] MEDS: FUROSEMIDE 20 MG/2 ML VIAL. IVP SCH ×2 (10:35→16:24)
[2021-09-14] MEDS: SENNOSIDES/DOCUSATE 8.6/50MG TABLET. PO SCH ×2 (10:39→21:26)
[2021-09-14] MEDS: busPIRone 10 MG TABLET. PO SCH ×2 (10:39→21:27)
[2021-09-14] MEDS: rOPINIRole 1 MG TABLET. PO SCH ×3 (10:43→21:26)
[2021-09-14 11:00] VITALS: BP 157/87
--- NOTE | 2021-09-14 12:34 | PDOC ---
DATE OF SERVICE: DOS: DATE: 09/14/21 TIME: 12:29 SUBJECTIVE ROS Follow-up for acute kidney injury Patient denies any new complaints. He has ongoing erythema and minimal discomfort in his left lower extremity. The pain is bearable. Marin catheter in place urine output is brisk as documented CVS: no Orthopnea, no CP RESP: no SOB, no VITALE GI: no Nausea, no Vomiting : no Dysuria, no Urgency OBJECTIVE Vital Signs Vital Signs Date Time Temp Pulse Resp B/P (MAP) Pulse Ox O2 Delivery O2 Flow Rate FiO2 09/14/21 11:00 99.0 80 18 157/87 (110) 97 99.0 09/13/21 19:35 Room Air I & 0 Intake and Output 09/14/21 07:00 Intake Total 1536 ml Output Total 3025 ml Balance -1489 ml Intake Oral 690 ml Blood Product IV Normal Saline Flush 846 ml Output Urine Total 3025 ml PHYSICAL EXAM Physical Exam GEN: Awake, Oriented x 3, In no distress EYES: Vision Unchanged, Conjunctiva Normal EN: No EN Drainage, Mucous Membranes moist NECK: no JVD, no JVP, Supple, no Thyromegaly CVS: S1S2, no Murmur, No Gallop, No Rub,++ Edema Left L Ext RESP: no Rales, no Rhonchi,no Acc. Muscle Use GI: BS + ve, NO Bruit, Non Tender, Non Distended : no CVA tenderness, no Suprapubic Tenderness DIAGNOSIS/ASSESSMENT Assessment & Plan WILLY/ATN with possible interstitial nephritis and/or possible rhabdomyolysis: Current fluid and E-lyte status does not necessitate emergent need for dialysis. Will re-evaluate for dialysis in the am Known history of underlying CKD stage III as previously documented. 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 Continue isotonic IV fluids for now FALL AT HOME: CPK noted to be approximately 4000. Continue IV fluids Elevated CPK due to fall versus associated with underlying left lower extremity infection cannot be ruled out. Known history of CAD - WITH INCREASED TROPONIN LEVELS. Cardiology following. EF normal at this time Elevated LFTs will be deferred to primary team/consider GI consultation. May be associated with elevated CPK Left ureteral jet was not identified on renal sonogram. If her creatinine does not improve, CT scan of the abdomen and/or nuclear medicine renal scan can be considered to rule out obstructive uropathy on the left side and to ensure adequately working left kidney COMMENT/RELEVANT DATA Meds Current Medications Medications (Trade) Dose Ordered Sig/Lisa Start Time Stop Time Status Last Admin Dose Admin Acetaminophen (Tylenol) 1,000 mg PRN Q6HRS PRN 09/12/21 22:45 Albuterol Sulfate (Ventolin Neb Soln) 2.5 mg PRN Q6HRS PRN 09/12/21 23:00 09/12/21 23:46 2.5 MG Aspirin (Ecotrin) 81 mg [id number] 09/13/21 12:30 09/14/21 10:33 81 MG Buspirone HCl (Buspar) 10 mg BID 09/13/21 09:00 09/14/21 10:39 10 MG Ceftriaxone Sodium (Rocephin) 1 gm Q24H 09/12/21 21:00 09/13/21 20:44 1 GM Cyanocobalamin (Vitamin B-12) 200 mcg DAILY 09/13/21 09:00 09/14/21 10:35 200 MCG Diltiazem HCl (Cardizem 24hr Cd) 240 mg DAILY 09/13/21 09:00 09/14/21 10:35 240 MG Doxycycline Hyclate 100 mg/ Dextrose 100 ml @ 50 mls/hr Q12HR 09/12/21 21:00 09/14/21 10:34 50 MLS/HR Famotidine (Pepcid) 20 mg QHS 09/13/21 21:00 09/13/21 20:45 20 MG Fentanyl Citrate (Fentanyl 2ml Vial) 25 mcg PRN Q3HRS PRN 09/12/21 20:15 Fluticasone Propionate (Flonase) 2 spray QHS 09/13/21 21:00 09/13/21 20:45 2 SPRAY Furosemide (Lasix) 20 mg BID92 09/13/21 14:00 09/14/21 10:35 20 MG Heparin Sodium (Porcine) (Heparin Sodium) 5,000 unit Q8HRS 09/12/21 22:00 09/14/21 06:00 5,000 UNIT Lactobacillus Rhamnosus (Culturelle) 1 cap BID 09/13/21 09:00 09/14/21 10:33 1 CAP Levothyroxine Sodium (Synthroid) 75 mcg DAILY06 09/13/21 06:00 09/14/21 05:57 75 MCG Ondansetron HCl (Zofran) 4 mg PRN Q6HRS PRN 09/12/21 22:45 Ropinirole HCl (Requip) 2 mg TID ONCE 09/12/21 23:04 09/12/21 23:05 DC 09/12/21 23:04 2 MG Senna/Docusate Sodium (Senna Plus) 1 tab BID 09/13/21 09:00 09/14/21 10:39 1 TAB Sodium Chloride 1,000 ml @ 75 mls/hr [id number] 09/13/21 11:30 09/13/21 12:48 75 MLS/HR Tramadol HCl (Ultram) 50 mg PRN Q6HRS PRN 09/12/21 20:15 09/14/21 03:53 50 MG Triamcinolone Acetonide (Kenalog 0.5%) 1 wood BID 09/13/21 09:00 09/14/21 10:33 1 WOOD Vitamin D (Vitamin D3) 1,000 unit DAILY 09/13/21 09:00 09/14/21 10:35 1,000 UNIT Lab Laboratory Tests Test 09/13/21 16:16 09/13/21 17:00 09/13/21 17:25 09/13/21 20:43 Iron Level 14 ug/dL (65-175) Total Iron Binding Capacity 273 ug/dL (250-450) Iron Saturation 5 % (15-34) Hepatitis A IgM Antibody Nonreactive (Nonreactive) Hepatitis B Surface Antigen Nonreactive (Nonreactive) Hepatitis B Core IgM Antibody Nonreactive (Nonreactive) Hepatitis C IgG Antibody Nonreactive (Nonreactive) Glucose (Fingerstick) 144 mg/dL (70-99) 195 mg/dL (70-99) Urine Collection Type Unknown Urine Color Yellow Urine Clarity Cloudy Urine pH 5.5 (<5.0-8.0) Urine Specific [place] <=1.005 (1.000-1.030) Urine Protein Negative mg/dL (NEG-TRACE) Urine Glucose (UA) 500 mg/dL (NEG) Urine Ketones (Stick) Negative mg/dL (NEG) Urine Blood Large (NEG) Urine Nitrite Negative (NEG) Urine Bilirubin Negative (NEG) Urine Urobilinogen Dipstick 0.2 mg/dL (0.2 mg/dL) Urine Leukocyte Esterase Negative (NEG) Urine RBC 6-10 /HPF (0-2) Urine WBC 5-10 /HPF (0-4) Urine Squamous Epithelial Cells Few /LPF Urine Amorphous Sediment Present /HPF Urine Bacteria 0 /HPF (0-FEW) Urine Granular Casts Moderate /HPF Urine Mucus Slight /LPF Urine Sodium 61 mmol/L (Not Estab.) Urine Potassium 12.2 mmol/L (Not Estab.) Urine Chloride 57 mmol/L (Not Estab.) Test 09/14/21 06:30 09/14/21 07:07 Sodium Level 128 mmol/L (136-145) Potassium Level 4.1 mmol/L (3.5-5.1) Chloride Level 96 mmol/L (98-107) Carbon Dioxide Level 22 mmol/L (21-32) Anion Gap 10 (6-14) Blood Urea Nitrogen 46 mg/dL (8-26) Creatinine 4.4 mg/dL (0.7-1.3) Estimated GFR (Cockcroft-Gault) 13.2 Glucose Level 182 mg/dL (70-99) Calcium Level 7.6 mg/dL (8.5-10.1) Total Bilirubin 0.5 mg/dL (0.2-1.0) Direct Bilirubin 0.2 mg/dL (0.0-0.2) Aspartate Amino Transf (AST/SGOT) 237 U/L (15-37) Alanine Aminotransferase (ALT/SGPT) 129 U/L (16-63) Alkaline Phosphatase 170 U/L (46-116) Creatine Kinase 4013 U/L (39-308) Total Protein 5.2 g/dL (6.4-8.2) Albumin 2.1 g/dL (3.4-5.0) Glucose (Fingerstick) 174 mg/dL (70-99) Results All relevant outside records, renal labs, imaging studies, telemetry/EKG's were reviewed. Other Echocardiogram 09/13/2021 The left ventricle is normal size. The left ventricular systolic function is normal and the ejection fraction is within normal range. LV ejection fraction is 50-55%. There is mild concentric left ventricular hypertrophy. Doppler and Color Flow revealed no significant aortic regurgitation. There is no significant aortic valvular stenosis. Doppler and Color-flow revealed mild mitral regurgitation. Doppler and Color Flow revealed trace tricuspid valve regurgitation. Renal ultrasound 09/13/2021 FINDINGS: The right kidney measures 13.5 x 6.7 x 7.8 cm. The left kidney measures 13.4 x 6.7 x 6.6 cm. The urinary bladder is mildly distended. Left ureteral jet is not identified within the urinary bladder .The urinary bladder is mildly distended. Prevoid urinary bladder volume is 403 cc IMPRESSION: 1. No evidence of hydronephrosis. The left ureteral jet is not identified in the urinary bladder. Justicifation of Admission Dx: Justifications for Admission: Justification of Admission Dx: Yes HU PADILLA MD Sep 14, 2021 12:34
--- NOTE | 2021-09-14 13:23 | PDOC ---
PROGRESS NOTES Date of Service DATE: 09/14/21 TIME: 13:19 Subjective Subjective Patient seen and examined Objective Objective Vital Signs Date Time Temp Pulse Resp B/P (MAP) Pulse Ox O2 Delivery O2 Flow Rate FiO2 09/14/21 11:00 99.0 80 18 157/87 (110) 97 99.0 09/13/21 19:35 Room Air 09/12/21 23:00 2.0 Intake and Output 09/14/21 07:00 Intake Total 1536 ml Output Total 3025 ml Balance -1489 ml Intake Oral 690 ml Blood Product IV Normal Saline Flush 846 ml Output Urine Total 3025 ml Physical Exam Abdomen: Normal bowel sounds Heart: Regular rate General: No acute distress Lungs: Other (Slightly decreased breath sounds) Assessment Assessment Sepsis with LLE cellulitis. Continuing antibiotics. Mild troponin elevation; high sensitivity highest 497. Most probably type II, demand ischemia. CP free. Echo with normal ejection fraction of 50 to 55%, mild left ventricle hypertrophy and mild mitral regurgitation. Severe WILLY on CKD; Cr ^ 3.6 s/p contrast for CTA. Continuing present treatment. Mild acute probable diastolic CHF secondary to IV hydration, appears compensated CAD noted on chest CTA. Denies prior LHC. Persistent AFIB; previous ablation. rate controlled on Cardizem. Followed with [facility] cardiology, Dr. Henry. Elmer as above. Hypertension; controlled Hyperlipidemia. Holding statins in the setting of elevated liver function tests.. Hypothyroidism Elevated d-dimer; CTA negative for PE Comment Review of Relevant I have reviewed the following items vincenzo (where applicable) has been applied. Labs Laboratory Tests Test 09/13/21 04:15 09/13/21 04:20 09/13/21 07:46 09/13/21 12:27 White Blood Count 6.8 x10^3/uL (4.0-11.0) Red Blood Count 4.00 x10^6/uL (4.30-5.70) Hemoglobin 10.7 g/dL (13.0-17.5) Hematocrit 32.4 % (39.0-53.0) Mean Corpuscular Volume 81 fL (79-100) Mean Corpuscular Hemoglobin 27 pg (25-35) Mean Corpuscular Hemoglobin Concent 33 g/dL (31-37) Red Cell Distribution Width 18.1 % (11.5-14.5) Platelet Count 170 x10^3/uL (140-400) Neutrophils (%) (Auto) 84 % (31-73) Lymphocytes (%) (Auto) 8 % (24-48) Monocytes (%) (Auto) 7 % (0-9) Eosinophils (%) (Auto) 0 % (0-3) Basophils (%) (Auto) 0 % (0-3) Neutrophils # (Auto) 5.7 x10^3/uL (1.8-7.7) Lymphocytes # (Auto) 0.6 x10^3/uL (1.0-4.8) Monocytes # (Auto) 0.5 x10^3/uL (0.0-1.1) Eosinophils # (Auto) 0.0 x10^3/uL (0.0-0.7) Basophils # (Auto) 0.0 x10^3/uL (0.0-0.2) Sodium Level 127 mmol/L (136-145) Potassium Level 4.0 mmol/L (3.5-5.1) Chloride Level 96 mmol/L (98-107) Carbon Dioxide Level 24 mmol/L (21-32) Anion Gap 7 (6-14) Blood Urea Nitrogen 48 mg/dL (8-26) Creatinine 4.6 mg/dL (0.7-1.3) Estimated GFR (Cockcroft-Gault) 12.6 BUN/Creatinine Ratio 10 (6-20) Glucose Level 131 mg/dL (70-99) Plasma/Serum Osmolality 279 mOsmol/kg (280-301) Calcium Level 7.9 mg/dL (8.5-10.1) Ferritin 266 ng/mL (26-388) Total Bilirubin 0.4 mg/dL (0.2-1.0) Aspartate Amino Transf (AST/SGOT) 372 U/L (15-37) Alanine Aminotransferase (ALT/SGPT) 146 U/L (16-63) Alkaline Phosphatase 121 U/L (46-116) Total Protein 5.8 g/dL (6.4-8.2) Albumin 2.1 g/dL (3.4-5.0) Albumin/Globulin Ratio 0.6 (1.0-1.7) Triglycerides Level 124 mg/dL (0-150) Cholesterol Level 132 mg/dL (0-200) LDL Cholesterol, Calculated 83 mg/dL (0-100) VLDL Cholesterol, Calculated 25 mg/dL (0-40) Non-HDL Cholesterol Calculated 108 mg/dL (0-129) HDL Cholesterol 24 mg/dL (40-60) Cholesterol/HDL Ratio 5.5 Vitamin B12 Level 1485 pg/mL (247-911) Hepatitis A IgM Antibody Nonreactive (Nonreactive) Hepatitis B Surface Antigen Nonreactive (Nonreactive) Hepatitis B Core IgM Antibody Nonreactive (Nonreactive) Hepatitis C IgG Antibody Nonreactive (Nonreactive) Troponin I High Sensitivity 45 ng/L (4-75) Thyroid Stimulating Hormone (TSH) 1.573 uIU/mL (0.358-3.74) Glucose (Fingerstick) 133 mg/dL (70-99) 143 mg/dL (70-99) Test 09/13/21 16:16 09/13/21 17:00 09/13/21 17:25 09/13/21 20:43 Iron Level 14 ug/dL (65-175) Total Iron Binding Capacity 273 ug/dL (250-450) Iron Saturation 5 % (15-34) Hepatitis A IgM Antibody Nonreactive (Nonreactive) Hepatitis B Surface Antigen Nonreactive (Nonreactive) Hepatitis B Core IgM Antibody Nonreactive (Nonreactive) Hepatitis C IgG Antibody Nonreactive (Nonreactive) Glucose (Fingerstick) 144 mg/dL (70-99) 195 mg/dL (70-99) Urine Collection Type Unknown Urine Color Yellow Urine Clarity Cloudy Urine pH 5.5 (<5.0-8.0) Urine Specific Hope <=1.005 (1.000-1.030) Urine Protein Negative mg/dL (NEG-TRACE) Urine Glucose (UA) 500 mg/dL (NEG) Urine Ketones (Stick) Negative mg/dL (NEG) Urine Blood Large (NEG) Urine Nitrite Negative (NEG) Urine Bilirubin Negative (NEG) Urine Urobilinogen Dipstick 0.2 mg/dL (0.2 mg/dL) Urine Leukocyte Esterase Negative (NEG) Urine RBC 6-10 /HPF (0-2) Urine WBC 5-10 /HPF (0-4) Urine Squamous Epithelial Cells Few /LPF Urine Amorphous Sediment Present /HPF Urine Bacteria 0 /HPF (0-FEW) Urine Granular Casts Moderate /HPF Urine Mucus Slight /LPF Urine Sodium 61 mmol/L (Not Estab.) Urine Potassium 12.2 mmol/L (Not Estab.) Urine Chloride 57 mmol/L (Not Estab.) Test 09/14/21 06:30 09/14/21 07:07 Sodium Level 128 mmol/L (136-145) Potassium Level 4.1 mmol/L (3.5-5.1) Chloride Level 96 mmol/L (98-107) Carbon Dioxide Level 22 mmol/L (21-32) Anion Gap 10 (6-14) Blood Urea Nitrogen 46 mg/dL (8-26) Creatinine 4.4 mg/dL (0.7-1.3) Estimated GFR (Cockcroft-Gault) 13.2 Glucose Level 182 mg/dL (70-99) Calcium Level 7.6 mg/dL (8.5-10.1) Total Bilirubin 0.5 mg/dL (0.2-1.0) Direct Bilirubin 0.2 mg/dL (0.0-0.2) Aspartate Amino Transf (AST/SGOT) 237 U/L (15-37) Alanine Aminotransferase (ALT/SGPT) 129 U/L (16-63) Alkaline Phosphatase 170 U/L (46-116) Creatine Kinase 4013 U/L (39-308) Total Protein 5.2 g/dL (6.4-8.2) Albumin 2.1 g/dL (3.4-5.0) Glucose (Fingerstick) 174 mg/dL (70-99) Laboratory Tests Test 09/13/21 16:16 09/13/21 17:00 09/13/21 17:25 09/13/21 20:43 Iron Level 14 ug/dL (65-175) Total Iron Binding Capacity 273 ug/dL (250-450) Iron Saturation 5 % (15-34) Hepatitis A IgM Antibody Nonreactive (Nonreactive) Hepatitis B Surface Antigen Nonreactive (Nonreactive) Hepatitis B Core IgM Antibody Nonreactive (Nonreactive) Hepatitis C IgG Antibody Nonreactive (Nonreactive) Glucose (Fingerstick) 144 mg/dL (70-99) 195 mg/dL (70-99) Urine Collection Type Unknown Urine Color Yellow Urine Clarity Cloudy Urine pH 5.5 (<5.0-8.0) Urine Specific Hope <=1.005 (1.000-1.030) Urine Protein Negative mg/dL (NEG-TRACE) Urine Glucose (UA) 500 mg/dL (NEG) Urine Ketones (Stick) Negative mg/dL (NEG) Urine Blood Large (NEG) Urine Nitrite Negative (NEG) Urine Bilirubin Negative (NEG) Urine Urobilinogen Dipstick 0.2 mg/dL (0.2 mg/dL) Urine Leukocyte Esterase Negative (NEG) Urine RBC 6-10 /HPF (0-2) Urine WBC 5-10 /HPF (0-4) Urine Squamous Epithelial Cells Few /LPF Urine Amorphous Sediment Present /HPF Urine Bacteria 0 /HPF (0-FEW) Urine Granular Casts Moderate /HPF Urine Mucus Slight /LPF Urine Sodium 61 mmol/L (Not Estab.) Urine Potassium 12.2 mmol/L (Not Estab.) Urine Chloride 57 mmol/L (Not Estab.) Test 09/14/21 06:30 09/14/21 07:07 Sodium Level 128 mmol/L (136-145) Potassium Level 4.1 mmol/L (3.5-5.1) Chloride Level 96 mmol/L (98-107) Carbon Dioxide Level 22 mmol/L (21-32) Anion Gap 10 (6-14) Blood Urea Nitrogen 46 mg/dL (8-26) Creatinine 4.4 mg/dL (0.7-1.3) Estimated GFR (Cockcroft-Gault) 13.2 Glucose Level 182 mg/dL (70-99) Calcium Level 7.6 mg/dL (8.5-10.1) Total Bilirubin 0.5 mg/dL (0.2-1.0) Direct Bilirubin 0.2 mg/dL (0.0-0.2) Aspartate Amino Transf (AST/SGOT) 237 U/L (15-37) Alanine Aminotransferase (ALT/SGPT) 129 U/L (16-63) Alkaline Phosphatase 170 U/L (46-116) Creatine Kinase 4013 U/L (39-308) Total Protein 5.2 g/dL (6.4-8.2) Albumin 2.1 g/dL (3.4-5.0) Glucose (Fingerstick) 174 mg/dL (70-99) Medications Current Medications Ceftriaxone Sodium (Rocephin) 1 gm Q24H IVP Last administered on 09/13/21at 20:44; Start 09/12/21 at 21:00 Doxycycline Hyclate 100 mg/ Dextrose 100 ml @ 50 mls/hr Q12HR IV Last administered on 09/14/21at 10:34; Start 09/12/21 at 21:00 Heparin Sodium (Porcine) (Heparin Sodium) 5,000 unit Q8HRS SQ Last administered on 09/14/21at 06:00; Start 09/12/21 at 22:00 Ondansetron HCl (Zofran) 4 mg PRN Q4HRS PRN IVP NAUSEA/VOMITING; Start 09/12/21 at 20:15; Stop 09/12/21 at 23:06; Status DC Acetaminophen (Tylenol) 650 mg PRN Q6HRS PRN PO MILD PAIN / TEMP > 100.3'F; Start 09/12/21 at 20:15; Stop 09/12/21 at 23:07; Status DC Fentanyl Citrate (Fentanyl 2ml Vial) 25 mcg PRN Q3HRS PRN IVP SEVERE PAIN 7-10; Start 09/12/21 at 20:15 Tramadol HCl (Ultram) 50 mg PRN Q6HRS PRN PO MOD TO SEVERE PAIN Last administered on 09/14/21at 03:53; Start 09/12/21 at 20:15 Acetaminophen (Tylenol) 1,000 mg PRN Q6HRS PRN PO pain/fever; Start 09/12/21 at 22:45 Ropinirole HCl (Requip) 2 mg TID PO Last administered on 09/14/21at 10:43; Start 09/13/21 at 09:00 Vitamin D (Vitamin D3) 1,000 unit DAILY PO Last administered on 09/14/21at 10:35; Start 09/13/21 at 09:00 Cyanocobalamin (Vitamin B-12) 200 mcg DAILY PO Last administered on 09/14/21at 10:35; Start 09/13/21 at 09:00 Famotidine (Pepcid) 20 mg QHS PO Last administered on 09/13/21at 20:45; Start 09/13/21 at 21:00 Fluticasone Propionate (Flonase) 2 spray QHS NS Last administered on 09/13/21at 20:45; Start 09/13/21 at 21:00 Albuterol Sulfate (Ventolin Neb Soln) 2.5 mg PRN Q6HRS PRN NEB SHORTNESS OF BREATH Last administered on 09/12/21 23:46; Start 09/12/21 at 23:00 Lactobacillus Rhamnosus (Culturelle) 1 cap BID PO Last administered on 09/14/21 10:33; Start 09/13/21 at 09:00 Levothyroxine Sodium (Synthroid) 75 mcg DAILY06 PO Last administered on 09/14/21 05:57; Start 09/13/21 at 06:00 Ondansetron HCl (Zofran) 4 mg PRN Q6HRS PRN IVP NAUSEA/VOMITING; Start 09/12/21 at 22:45 Triamcinolone Acetonide (Kenalog 0.5%) 1 wood BID TP Last administered on 09/14/21 10:33; Start 09/13/21 at 09:00 Buspirone HCl (Buspar) 10 mg BID PO Last administered on 09/14/21 10:39; Start 09/13/21 at 09:00 Diltiazem HCl (Cardizem 24hr Cd) 240 mg DAILY PO Last administered on 09/14/21 10:35; Start 09/13/21 at 09:00 Ropinirole HCl (Requip) 2 mg TID ONCE PO Last administered on 09/12/21 23:04; Start 09/12/21 at 23:04; Stop 09/12/21 at 23:05; Status DC Senna/Docusate Sodium (Senna Plus) 1 tab BID PO Last administered on 09/14/21 10:39; Start 09/13/21 at 09:00 Sodium Chloride 1,000 ml @ 75 mls/hr [id number] IV Last administered on 09/13/21at 12:48; Start 09/13/21 at 11:30 Aspirin (Ecotrin) 81 mg [id number] PO Last administered on 09/14/21 10:33; Start 09/13/21 at 12:30 Furosemide (Lasix) 20 mg [id number] IVP Last administered on 09/14/21 10:35; Start 09/13/21 at 14:00 Active Scripts Active Naproxen 500 Mg Tablet 1 Tab PO BID PRN Cyclobenzaprine Hcl 10 Mg Tablet 1 Tab PO TID PRN Vitals/I & O Vital Sign - Last 24 Hours 09/13/21 09/13/21 09/13/2121 15:00 19:00 19:35 23:00 Temp 100.0 98.1 98.1 100.0 98.1 98.1 Pulse 79 90 98 Resp 19 19 B/P (MAP) 145/66 (92) 97/61 (73) 130/62 (84) Pulse Ox 98 98 97 O2 Delivery Room Air 09/14/21 09/14/21 09/14/21 09/14/21 03:00 07:00 10:35 11:00 Temp 98.5 98.0 99.0 98.5 98.0 99.0 Pulse 97 89 89 80 Resp 18 18 B/P (MAP) 137/64 (88) 145/76 (99) 145/76 157/87 (110) Pulse Ox 97 96 97 Intake and Output 09/13/21 09/13/21 09/14/21 15:00 23:00 07:00 Intake Total 390 ml 1146 ml Output Total 585 ml 1390 ml 1050 ml Balance -195 ml -244 ml -1050 ml Justifications for Admission Other Justification Cellulitis ALEXANDER PETERSEN MD Sep 14, 2021 13:23
[2021-09-14 15:00] VITALS: BP 115/61
--- NOTE | 2021-09-14 15:18 | PDOC ---
PROGRESS NOTES Date of Service: DATE: 09/14/21 TIME: 15:16 Chief Complaint Chief Complaint Fall at home - with weakness. PT/OT for ADLs, may need skilled services on d/c Sepsis - was present prior to admission. Cont antibiotics LLE cellulitis - likely related to traumatic fall, no evidence of acute fracture or dislocation on tib-fib x-ray of his left lower extremity, cont antibiotics, will change to rocephin, doxycycline WILLY on CKD - baseline Cr ~2, now 4.3. Follow nephrology independent consultant recommendations Transaminitis - large transaminase elevation, not in shock, will monitor trend, check hepatitis serologies, TSH, iron, ferritin Troponin elevation - HS trop peaked at 497, likely demand ischemia follow recommendations from independent consultant Mild acute probable diastolic CHF secondary to IV hydration fluid overload, diuresis as per independent consultant Triple vessel disease CAD - on chest CTA. sees Dr. Henry at [facility] AFIB - s/p ablation. is permanent, rate controlled on Cardizem. Xarelto for stroke prophylaxis. Follow with [facility] cardiology, Dr. Henry Hypertension - cont home meds Hyperlipidemia - statin Hypothyroidism - on levothyroxine DM2 - sliding scale insulin Severe protein calorie malnutrition - due to infection, will have radar repairer to see FEN - cardiac diet PPX - xarelto FULL CODE Dispo -patient will likely need home health services moving forward. We will continue to monitor on a daily basis and follow recommendations from physical therapy for final disposition History of Present Illness History of Present Illness Mr Lozano is a 75yo male [place] with PMHx atrial fibrillation, hypertension, hyperlipidemia, type 2 diabetes mellitus, coronary artery disease, hypothyroidism, and generalized osteoarthritis who presented to [facility] in [place] on 09/10/2021 after he was doing poorly having difficulty walking at home even with walker and he remembers [facility] and was able to crawl to the couch contact EMS to be brought to the hospital. He thinks the day prior 09/09/2021 he was diagnosed with pneumonia at the [facility], he initially requested to go to [facility] but was diverted to [facility] due to high volume at [facility]. There he noted a week of progressive weakness and shortness of breath. He had CTPA which showed that there is no evidence of acute or chronic pulmonary emboli. There is bronchial wall thickening compatible with nonspecific bronchitis. There are at least 2-4 mm solid noncalcified pulmonary nodules, cardiomegaly with 3-vessel coronary vascular calcification. EKG was afib. WBC 24.6, Hb 14.7, platelets 281 NA 132, K3.5, BUN 25, CR 2.3, glucose 172, bilirubin 1.3, AST 340, ALT 76, alk phos 118, high-sensitivity troponin I 46, TSH 3, COVID-19 PCR negative Was admitted with sepsis, treated aggressively with IV fluid, started on meropenem and vancomycin. Over the course of 3 days troponin peaked at 4 9711 9 lactic acid peaked at 4.1 on 11 9, 1110 AST 77 ALT 150 albumin 2, level 11 NA 120 7K3.8, BUN 47, CR 4.3 vancomycin trough 26.2. Given his elevated troponin, cardiology was consulted at [facility]. Given his worsening renal function is called for transfer to [facility] for consideration of nephrology consultation. Seen bedside patient notes that before his initial admission at [facility] he was doing much worse than he currently is but he still can't walk on his own, thinks his left leg looks be 09/13/2021 No acute events reported overnight, case discussed with nursing staff patient in no acute distress no complaints during my visit Still complaining of left leg discomfort but greatly improved. Reassurance provided Reassess in the a.m. Follow recommendations from consultants 09/14/2021 No acute events reported overnight, case discussed with nursing staff patient in no acute distress no complaints during my visit Encourage as much ambulation as possible, discussed with nursing staff No new complaints voiced, wanting to be discharged soon as possible Vitals Vitals Vital Signs Date Time Temp Pulse Resp B/P (MAP) Pulse Ox O2 Delivery O2 Flow Rate FiO2 09/14/21 11:00 99.0 80 18 157/87 (110) 97 99.0 09/13/21 19:35 Room Air Physical Exam General: No acute distress Heart: Regular rate Abdomen: Normal bowel sounds Extremities: No cyanosis Skin: No breakdown Labs LABS Laboratory Tests Test 09/13/21 16:16 09/13/21 17:00 09/13/21 17:25 09/13/21 20:43 Iron Level 14 ug/dL (65-175) Total Iron Binding Capacity 273 ug/dL (250-450) Iron Saturation 5 % (15-34) Hepatitis A IgM Antibody Nonreactive (Nonreactive) Hepatitis B Surface Antigen Nonreactive (Nonreactive) Hepatitis B Core IgM Antibody Nonreactive (Nonreactive) Hepatitis C IgG Antibody Nonreactive (Nonreactive) Glucose (Fingerstick) 144 mg/dL (70-99) 195 mg/dL (70-99) Urine Collection Type Unknown Urine Color Yellow Urine Clarity Cloudy Urine pH 5.5 (<5.0-8.0) Urine Specific [place] <=1.005 (1.000-1.030) Urine Protein Negative mg/dL (NEG-TRACE) Urine Glucose (UA) 500 mg/dL (NEG) Urine Ketones (Stick) Negative mg/dL (NEG) Urine Blood Large (NEG) Urine Nitrite Negative (NEG) Urine Bilirubin Negative (NEG) Urine Urobilinogen Dipstick 0.2 mg/dL (0.2 mg/dL) Urine Leukocyte Esterase Negative (NEG) Urine RBC 6-10 /HPF (0-2) Urine WBC 5-10 /HPF (0-4) Urine Squamous Epithelial Cells Few /LPF Urine Amorphous Sediment Present /HPF Urine Bacteria 0 /HPF (0-FEW) Urine Granular Casts Moderate /HPF Urine Mucus Slight /LPF Urine Sodium 61 mmol/L (Not Estab.) Urine Potassium 12.2 mmol/L (Not Estab.) Urine Chloride 57 mmol/L (Not Estab.) Test 09/14/21 06:30 09/14/21 07:07 Sodium Level 128 mmol/L (136-145) Potassium Level 4.1 mmol/L (3.5-5.1) Chloride Level 96 mmol/L (98-107) Carbon Dioxide Level 22 mmol/L (21-32) Anion Gap 10 (6-14) Blood Urea Nitrogen 46 mg/dL (8-26) Creatinine 4.4 mg/dL (0.7-1.3) Estimated GFR (Cockcroft-Gault) 13.2 Glucose Level 182 mg/dL (70-99) Calcium Level 7.6 mg/dL (8.5-10.1) Total Bilirubin 0.5 mg/dL (0.2-1.0) Direct Bilirubin 0.2 mg/dL (0.0-0.2) Aspartate Amino Transf (AST/SGOT) 237 U/L (15-37) Alanine Aminotransferase (ALT/SGPT) 129 U/L (16-63) Alkaline Phosphatase 170 U/L (46-116) Creatine Kinase 4013 U/L (39-308) Total Protein 5.2 g/dL (6.4-8.2) Albumin 2.1 g/dL (3.4-5.0) Glucose (Fingerstick) 174 mg/dL (70-99) Comment Review of Relevant I have reviewed the following items vincenzo (where applicable) has been applied. Labs Laboratory Tests Test 09/13/21 04:15 09/13/21 04:20 09/13/21 07:46 09/13/21 12:27 White Blood Count 6.8 x10^3/uL (4.0-11.0) Red Blood Count 4.00 x10^6/uL (4.30-5.70) Hemoglobin 10.7 g/dL (13.0-17.5) Hematocrit 32.4 % (39.0-53.0) Mean Corpuscular Volume 81 fL (79-100) Mean Corpuscular Hemoglobin 27 pg (25-35) Mean Corpuscular Hemoglobin Concent 33 g/dL (31-37) Red Cell Distribution Width 18.1 % (11.5-14.5) Platelet Count 170 x10^3/uL (140-400) Neutrophils (%) (Auto) 84 % (31-73) Lymphocytes (%) (Auto) 8 % (24-48) Monocytes (%) (Auto) 7 % (0-9) Eosinophils (%) (Auto) 0 % (0-3) Basophils (%) (Auto) 0 % (0-3) Neutrophils # (Auto) 5.7 x10^3/uL (1.8-7.7) Lymphocytes # (Auto) 0.6 x10^3/uL (1.0-4.8) Monocytes # (Auto) 0.5 x10^3/uL (0.0-1.1) Eosinophils # (Auto) 0.0 x10^3/uL (0.0-0.7) Basophils # (Auto) 0.0 x10^3/uL (0.0-0.2) Sodium Level 127 mmol/L (136-145) Potassium Level 4.0 mmol/L (3.5-5.1) Chloride Level 96 mmol/L (98-107) Carbon Dioxide Level 24 mmol/L (21-32) Anion Gap 7 (6-14) Blood Urea Nitrogen 48 mg/dL (8-26) Creatinine 4.6 mg/dL (0.7-1.3) Estimated GFR (Cockcroft-Gault) 12.6 BUN/Creatinine Ratio 10 (6-20) Glucose Level 131 mg/dL (70-99) Plasma/Serum Osmolality 279 mOsmol/kg (280-301) Calcium Level 7.9 mg/dL (8.5-10.1) Ferritin 266 ng/mL (26-388) Total Bilirubin 0.4 mg/dL (0.2-1.0) Aspartate Amino Transf (AST/SGOT) 372 U/L (15-37) Alanine Aminotransferase (ALT/SGPT) 146 U/L (16-63) Alkaline Phosphatase 121 U/L (46-116) Total Protein 5.8 g/dL (6.4-8.2) Albumin 2.1 g/dL (3.4-5.0) Albumin/Globulin Ratio 0.6 (1.0-1.7) Triglycerides Level 124 mg/dL (0-150) Cholesterol Level 132 mg/dL (0-200) LDL Cholesterol, Calculated 83 mg/dL (0-100) VLDL Cholesterol, Calculated 25 mg/dL (0-40) Non-HDL Cholesterol Calculated 108 mg/dL (0-129) HDL Cholesterol 24 mg/dL (40-60) Cholesterol/HDL Ratio 5.5 Vitamin B12 Level 1485 pg/mL (247-911) Hepatitis A IgM Antibody Nonreactive (Nonreactive) Hepatitis B Surface Antigen Nonreactive (Nonreactive) Hepatitis B Core IgM Antibody Nonreactive (Nonreactive) Hepatitis C IgG Antibody Nonreactive (Nonreactive) Troponin I High Sensitivity 45 ng/L (4-75) Thyroid Stimulating Hormone (TSH) 1.573 uIU/mL (0.358-3.74) Glucose (Fingerstick) 133 mg/dL (70-99) 143 mg/dL (70-99) Test 09/13/21 16:16 09/13/21 17:00 09/13/21 17:25 09/13/21 20:43 Iron Level 14 ug/dL (65-175) Total Iron Binding Capacity 273 ug/dL (250-450) Iron Saturation 5 % (15-34) Hepatitis A IgM Antibody Nonreactive (Nonreactive) Hepatitis B Surface Antigen Nonreactive (Nonreactive) Hepatitis B Core IgM Antibody Nonreactive (Nonreactive) Hepatitis C IgG Antibody Nonreactive (Nonreactive) Glucose (Fingerstick) 144 mg/dL (70-99) 195 mg/dL (70-99) Urine Collection Type Unknown Urine Color Yellow Urine Clarity Cloudy Urine pH 5.5 (<5.0-8.0) Urine Specific [place] <=1.005 (1.000-1.030) Urine Protein Negative mg/dL (NEG-TRACE) Urine Glucose (UA) 500 mg/dL (NEG) Urine Ketones (Stick) Negative mg/dL (NEG) Urine Blood Large (NEG) Urine Nitrite Negative (NEG) Urine Bilirubin Negative (NEG) Urine Urobilinogen Dipstick 0.2 mg/dL (0.2 mg/dL) Urine Leukocyte Esterase Negative (NEG) Urine RBC 6-10 /HPF (0-2) Urine WBC 5-10 /HPF (0-4) Urine Squamous Epithelial Cells Few /LPF Urine Amorphous Sediment Present /HPF Urine Bacteria 0 /HPF (0-FEW) Urine Granular Casts Moderate /HPF Urine Mucus Slight /LPF Urine Sodium 61 mmol/L (Not Estab.) Urine Potassium 12.2 mmol/L (Not Estab.) Urine Chloride 57 mmol/L (Not Estab.) Test 09/14/21 06:30 09/14/21 07:07 Sodium Level 128 mmol/L (136-145) Potassium Level 4.1 mmol/L (3.5-5.1) Chloride Level 96 mmol/L (98-107) Carbon Dioxide Level 22 mmol/L (21-32) Anion Gap 10 (6-14) Blood Urea Nitrogen 46 mg/dL (8-26) Creatinine 4.4 mg/dL (0.7-1.3) Estimated GFR (Cockcroft-Gault) 13.2 Glucose Level 182 mg/dL (70-99) Calcium Level 7.6 mg/dL (8.5-10.1) Total Bilirubin 0.5 mg/dL (0.2-1.0) Direct Bilirubin 0.2 mg/dL (0.0-0.2) Aspartate Amino Transf (AST/SGOT) 237 U/L (15-37) Alanine Aminotransferase (ALT/SGPT) 129 U/L (16-63) Alkaline Phosphatase 170 U/L (46-116) Creatine Kinase 4013 U/L (39-308) Total Protein 5.2 g/dL (6.4-8.2) Albumin 2.1 g/dL (3.4-5.0) Glucose (Fingerstick) 174 mg/dL (70-99) Laboratory Tests Test 09/13/21 16:16 09/13/21 17:00 09/13/21 17:25 09/13/21 20:43 Iron Level 14 ug/dL (65-175) Total Iron Binding Capacity 273 ug/dL (250-450) Iron Saturation 5 % (15-34) Hepatitis A IgM Antibody Nonreactive (Nonreactive) Hepatitis B Surface Antigen Nonreactive (Nonreactive) Hepatitis B Core IgM Antibody Nonreactive (Nonreactive) Hepatitis C IgG Antibody Nonreactive (Nonreactive) Glucose (Fingerstick) 144 mg/dL (70-99) 195 mg/dL (70-99) Urine Collection Type Unknown Urine Color Yellow Urine Clarity Cloudy Urine pH 5.5 (<5.0-8.0) Urine Specific [place] <=1.005 (1.000-1.030) Urine Protein Negative mg/dL (NEG-TRACE) Urine Glucose (UA) 500 mg/dL (NEG) Urine Ketones (Stick) Negative mg/dL (NEG) Urine Blood Large (NEG) Urine Nitrite Negative (NEG) Urine Bilirubin Negative (NEG) Urine Urobilinogen Dipstick 0.2 mg/dL (0.2 mg/dL) Urine Leukocyte Esterase Negative (NEG) Urine RBC 6-10 /HPF (0-2) Urine WBC 5-10 /HPF (0-4) Urine Squamous Epithelial Cells Few /LPF Urine Amorphous Sediment Present /HPF Urine Bacteria 0 /HPF (0-FEW) Urine Granular Casts Moderate /HPF Urine Mucus Slight /LPF Urine Sodium 61 mmol/L (Not Estab.) Urine Potassium 12.2 mmol/L (Not Estab.) Urine Chloride 57 mmol/L (Not Estab.) Test 09/14/21 06:30 09/14/21 07:07 Sodium Level 128 mmol/L (136-145) Potassium Level 4.1 mmol/L (3.5-5.1) Chloride Level 96 mmol/L (98-107) Carbon Dioxide Level 22 mmol/L (21-32) Anion Gap 10 (6-14) Blood Urea Nitrogen 46 mg/dL (8-26) Creatinine 4.4 mg/dL (0.7-1.3) Estimated GFR (Cockcroft-Gault) 13.2 Glucose Level 182 mg/dL (70-99) Calcium Level 7.6 mg/dL (8.5-10.1) Total Bilirubin 0.5 mg/dL (0.2-1.0) Direct Bilirubin 0.2 mg/dL (0.0-0.2) Aspartate Amino Transf (AST/SGOT) 237 U/L (15-37) Alanine Aminotransferase (ALT/SGPT) 129 U/L (16-63) Alkaline Phosphatase 170 U/L (46-116) Creatine Kinase 4013 U/L (39-308) Total Protein 5.2 g/dL (6.4-8.2) Albumin 2.1 g/dL (3.4-5.0) Glucose (Fingerstick) 174 mg/dL (70-99) Medications Current Medications Ceftriaxone Sodium (Rocephin) 1 gm Q24H IVP Last administered on 09/13/21at 20:44; Start 09/12/21 at 21:00 Doxycycline Hyclate 100 mg/ Dextrose 100 ml @ 50 mls/hr Q12HR IV Last administered on 09/14/21at 10:34; Start 09/12/21 at 21:00 Heparin Sodium (Porcine) (Heparin Sodium) 5,000 unit Q8HRS SQ Last administered on 09/14/21at 06:00; Start 09/12/21 at 22:00 Ondansetron HCl (Zofran) 4 mg PRN Q4HRS PRN IVP NAUSEA/VOMITING; Start 09/12/21 at 20:15; Stop 09/12/21 at 23:06; Status DC Acetaminophen (Tylenol) 650 mg PRN Q6HRS PRN PO MILD PAIN / TEMP > 100.3'F; Start 09/12/21 at 20:15; Stop 09/12/21 at 23:07; Status DC Fentanyl Citrate (Fentanyl 2ml Vial) 25 mcg PRN Q3HRS PRN IVP SEVERE PAIN 7-10; Start 09/12/21 at 20:15 Tramadol HCl (Ultram) 50 mg PRN Q6HRS PRN PO MOD TO SEVERE PAIN Last administered on 09/14/21 03:53; Start 09/12/21 at 20:15 Acetaminophen (Tylenol) 1,000 mg PRN Q6HRS PRN PO pain/fever; Start 09/12/21 at 22:45 Ropinirole HCl (Requip) 2 mg TID PO Last administered on 09/14/21 10:43; Start 09/13/21 at 09:00 Vitamin D (Vitamin D3) 1,000 unit DAILY PO Last administered on 09/14/21 10:35; Start 09/13/21 at 09:00 Cyanocobalamin (Vitamin B-12) 200 mcg DAILY PO Last administered on 09/14/21 10:35; Start 09/13/21 at 09:00 Famotidine (Pepcid) 20 mg QHS PO Last administered on 09/13/21 20:45; Start 09/13/21 at 21:00 Fluticasone Propionate (Flonase) 2 spray QHS NS Last administered on 09/13/21 20:45; Start 09/13/21 at 21:00 Albuterol Sulfate (Ventolin Neb Soln) 2.5 mg PRN Q6HRS PRN NEB SHORTNESS OF BREATH Last administered on 09/12/21 23:46; Start 09/12/21 at 23:00 Lactobacillus Rhamnosus (Culturelle) 1 cap BID PO Last administered on 09/14/21 10:33; Start 09/13/21 at 09:00 Levothyroxine Sodium (Synthroid) 75 mcg [id number] PO Last administered on 09/14/21 05:57; Start 09/13/21 at 06:00 Ondansetron HCl (Zofran) 4 mg PRN Q6HRS PRN IVP NAUSEA/VOMITING; Start 09/12/21 at 22:45 Triamcinolone Acetonide (Kenalog 0.5%) 1 wood BID TP Last administered on 09/14/21 10:33; Start 09/13/21 at 09:00 Buspirone HCl (Buspar) 10 mg BID PO Last administered on 09/14/21 10:39; Start 09/13/21 at 09:00 Diltiazem HCl (Cardizem 24hr Cd) 240 mg DAILY PO Last administered on 09/14/21 10:35; Start 09/13/21 at 09:00 Ropinirole HCl (Requip) 2 mg TID ONCE PO Last administered on 09/12/21at 23:04; Start 09/12/21 at 23:04; Stop 09/12/21 at 23:05; Status DC Senna/Docusate Sodium (Senna Plus) 1 tab BID PO Last administered on 09/14/21at 10:39; Start 09/13/21 at 09:00 Sodium Chloride 1,000 ml @ 75 mls/hr [id number] IV Last administered on 09/13/21at 12:48; Start 09/13/21 at 11:30 Aspirin (Ecotrin) 81 mg [id number] PO Last administered on 09/14/21at 10:33; Start 09/13/21 at 12:30 Furosemide (Lasix) 20 mg [id number] IVP Last administered on 09/14/21at 10:35; Start 09/13/21 at 14:00 Active Scripts Active Naproxen 500 Mg Tablet 1 Tab PO BID PRN Cyclobenzaprine Hcl 10 Mg Tablet 1 Tab PO TID PRN Vitals/I & O Vital Sign - Last 24 Hours 09/13/21 09/13/21 09/13/21 09/14/21 19:00 19:35 23:00 03:00 Temp 98.1 98.1 98.5 98.1 98.1 98.5 Pulse 90 98 97 Resp 19 19 19 B/P (MAP) 97/61 (73) 130/62 (84) 137/64 (88) Pulse Ox 98 97 97 O2 Delivery Room Air 09/14/21 09/14/21 09/14/21 07:00 10:35 11:00 Temp 98.0 99.0 98.0 99.0 Pulse 89 89 80 Resp 18 18 B/P (MAP) 145/76 (99) 145/76 157/87 (110) Pulse Ox 96 97 Intake and Output 09/13/21 09/13/21 09/14/21 15:00 23:00 07:00 Intake Total 390 ml 1146 ml Output Total 585 ml 1390 ml 1050 ml Balance -195 ml -244 ml -1050 ml Justicifation of Admission Dx: Justifications for Admission: Justification of Admission Dx: Yes TIP CARROLL MD Sep 14, 2021 15:18
[2021-09-14 19:00] VITALS: BP 116/56
[2021-09-14] MEDS: FAMOTIDINE 20 MG TABLET. PO SCH (21:26)
[2021-09-14] MEDS: FLUTICASONE 50MCG/NASAL SPRAY 16GM BOTTLE. NS SCH (21:26)
[2021-09-14] MEDS: cefTRIAXone IV Push 1 GM VIAL. IVP SCH (21:27)
[2021-09-14 23:00] VITALS: BP 121/55
[2021-09-14] MEDS: OLANZapine 2.5 MG TABLET PO PRN (23:03)
[2021-09-15 03:00] VITALS: BP 130/58
[2021-09-15] MEDS: ALBUTEROL SULFATE 2.5 MG/3 ML NEBU. NEB PRN (04:27)
[2021-09-15] MEDS: IV NORMAL SALINE 1000ML BAG 1,000 ML IV SCH (05:44)
[2021-09-15] MEDS: LEVOTHYROXINE 75 MCG TABLET PO SCH (06:00)
[2021-09-15] MEDS: HEPARIN for SUB-Q USE 5,000 UNIT/ML VIAL. SQ SCH ×3 (06:00→21:38)
[2021-09-15 07:00] VITALS: BP 136/66
[2021-09-15] MEDS: ASPIRIN ENTERIC COATED 81 MG TABLET.DR. PO SCH (08:00)
[2021-09-15] MEDS: DOXYCYCLINE HYCLATE 100 MG in IV DEXTROSE 5% 100ML 100 ML IV SCH ×2 (09:00→21:36)
[2021-09-15] MEDS: CYANOCOBALAMIN (VITAMIN B-12) 100 MCG TABLET. PO SCH (09:00)
[2021-09-15] MEDS: LACTOBACILLUS RHAMNOSUS GG 1 CAPSULE. PO SCH ×2 (09:00→21:34)
[2021-09-15] MEDS: CHOLECALCIFEROL (VITAMIN D3) 1,000 UNIT TABLET PO SCH (09:00)
[2021-09-15] MEDS: FUROSEMIDE 20 MG/2 ML VIAL. IVP SCH ×2 (09:00→15:02)
[2021-09-15] MEDS: SENNOSIDES/DOCUSATE 8.6/50MG TABLET. PO SCH ×2 (09:00→21:00)
[2021-09-15] MEDS: rOPINIRole 1 MG TABLET. PO SCH ×3 (09:00→21:34)
[2021-09-15] MEDS: busPIRone 10 MG TABLET. PO SCH ×2 (09:00→21:34)
[2021-09-15 11:00] VITALS: BP 135/69
[2021-09-15] MEDS: TRIAMCINOLONE ACETONIDE 0.5% TOPICAL CREAM 15GM TUBE. TP SCH ×2 (11:18→21:00)
--- NOTE | 2021-09-15 12:15 | RAD ---
EXAM: CHEST 1 VIEW History: Cough COMPARISON: None available. TECHNIQUE: Single portable radiograph of the chest FINDINGS: Mild cardiomegaly. Mild prominent bilateral interstitial lung markings likely mild congest barb changes. Mild bibasilar lung airspace opacity likely atelectasis or infiltrates. IMPRESSION: Mild bibasilar lung airspace opacities likely atelectasis or infiltrates. Electronically signed by: Zach Gregg MD (09/15/2021 12:12 PM) [id number]
--- NOTE | 2021-09-15 13:09 | PDOC ---
DATE OF SERVICE: DOS: DATE: 09/15/21 TIME: 13:06 SUBJECTIVE ROS Follow-up for acute kidney injury Patient denies any new specific complaints per se CVS: no Orthopnea, no CP RESP: no SOB, no VITALE GI: no Nausea, no Vomiting : no Dysuria, no Urgency OBJECTIVE Vital Signs Vital Signs Date Time Temp Pulse Resp B/P (MAP) Pulse Ox O2 Delivery O2 Flow Rate FiO2 09/15/21 09:00 83 136/66 09/15/21 07:00 98.4 16 98 98.4 09/15/21 04:27 Room Air 09/14/21 23:00 2.0 I & 0 Intake and Output 09/15/21 07:00 Intake Total 920 ml Output Total 2550 ml Balance -1630 ml Intake Oral 920 ml Output Urine Total 2550 ml # Voids 1 # Bowel Movements 1 PHYSICAL EXAM Physical Exam GEN: Awake, Oriented x 3, In no distress EYES: Vision Unchanged, Conjunctiva Normal EN: No EN Drainage, Mucous Membranes moist NECK: no JVD, no JVP, Supple, no Thyromegaly CVS: S1S2, no Murmur, No Gallop, No Rub,++ Edema Left L Ext RESP: no Rales, no Rhonchi,no Acc. Muscle Use GI: BS + ve, NO Bruit, Non Tender, Non Distended : no CVA tenderness, no Suprapubic Tenderness DIAGNOSIS/ASSESSMENT Assessment & Plan WILLY/ATN with possible interstitial nephritis and/or possible rhabdomyolysis: No creatinine available for today. Urine output is adequate as documented. current fluid and E-lyte status does not necessitate emergent need for dialysis. Will re-evaluate for dialysis in the am Known history of underlying CKD stage III as previously documented. 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 Continue isotonic IV fluids for now FALL AT HOME: CPK noted to be approximately 4000 on arrival, now trending downwards. Continue IV fluids Elevated CPK due to fall versus associated with underlying left lower extremity infection cannot be ruled out. Known history of CAD - WITH INCREASED TROPONIN LEVELS. Cardiology following. EF normal at this time Elevated LFTs will be deferred to primary team/consider GI consultation. May be associated with elevated CPK Left ureteral jet was not identified on renal sonogram. If his creatinine does not improve, CT scan of the abdomen and/or nuclear medicine renal scan can be considered to rule out obstructive uropathy on the left side and to ensure adequately working left kidney COMMENT/RELEVANT DATA Meds Current Medications Medications (Trade) Dose Ordered Sig/Lisa Start Time Stop Time Status Last Admin Dose Admin Acetaminophen (Tylenol) 1,000 mg PRN Q6HRS PRN 09/12/21 22:45 Albuterol Sulfate (Ventolin Neb Soln) 2.5 mg PRN Q6HRS PRN 09/12/21 23:00 09/15/21 04:27 2.5 MG Aspirin (Ecotrin) 81 mg [id number] 09/13/21 12:30 09/15/21 08:00 81 MG Buspirone HCl (Buspar) 10 mg BID 09/13/21 09:00 09/15/21 09:00 10 MG Ceftriaxone Sodium (Rocephin) 1 gm Q24H 09/12/21 21:00 09/14/21 21:27 1 GM Cyanocobalamin (Vitamin B-12) 200 mcg DAILY 09/13/21 09:00 09/15/21 09:00 200 MCG Diltiazem HCl (Cardizem 24hr Cd) 240 mg DAILY 09/13/21 09:00 09/15/21 09:00 240 MG Doxycycline Hyclate 100 mg/ Dextrose 100 ml @ 50 mls/hr Q12HR 09/12/21 21:00 09/15/21 09:00 50 MLS/HR Famotidine (Pepcid) 20 mg QHS 09/13/21 21:00 09/14/21 21:26 20 MG Fentanyl Citrate (Fentanyl 2ml Vial) 25 mcg PRN Q3HRS PRN 09/12/21 20:15 09/15/21 00:33 25 MCG Fluticasone Propionate (Flonase) 2 spray QHS 09/13/21 21:00 09/14/21 21:26 2 SPRAY Furosemide (Lasix) 20 mg [id number] 09/13/21 14:00 09/15/21 09:00 20 MG Heparin Sodium (Porcine) (Heparin Sodium) 5,000 unit Q8HRS 09/12/21 22:00 09/15/21 06:00 5,000 UNIT Lactobacillus Rhamnosus (Culturelle) 1 cap BID 09/13/21 09:00 09/15/21 09:00 1 CAP Levothyroxine Sodium (Synthroid) 75 mcg DAILY06 09/13/21 06:00 09/15/21 06:00 75 MCG Magnesium Sulfate 50 ml @ 25 mls/hr PRN DAILY PRN 09/15/21 13:15 UNV Olanzapine (ZyPREXA) 2.5 mg PRN DAILY PRN 09/14/21 23:00 09/14/21 23:03 2.5 MG Ondansetron HCl (Zofran) 4 mg PRN Q6HRS PRN 09/12/21 22:45 Ropinirole HCl (Requip) 2 mg TID ONCE 09/12/21 23:04 09/12/21 23:05 DC 09/12/21 23:04 2 MG Senna/Docusate Sodium (Senna Plus) 1 tab BID 09/13/21 09:00 09/15/21 09:00 1 TAB Sodium Chloride 1,000 ml @ 75 mls/hr [id number] 09/13/21 11:30 09/15/21 05:44 75 MLS/HR Tramadol HCl (Ultram) 50 mg PRN Q6HRS PRN 09/12/21 20:15 09/14/21 03:53 50 MG Triamcinolone Acetonide (Kenalog 0.5%) 1 wood BID 09/13/21 09:00 09/15/21 11:18 1 WOOD Vitamin D (Vitamin D3) 1,000 unit DAILY 09/13/21 09:00 09/15/21 09:00 1,000 UNIT Lab Laboratory Tests Test 09/14/21 16:59 09/14/21 19:22 09/15/21 06:40 09/15/21 07:15 Glucose (Fingerstick) 140 mg/dL (70-99) 203 mg/dL (70-99) 144 mg/dL (70-99) Creatine Kinase 1700 U/L (39-308) Test 09/15/21 12:00 Glucose (Fingerstick) 96 mg/dL (70-99) Results All relevant outside records, renal labs, imaging studies, telemetry/EKG's were reviewed. Justicifation of Admission Dx: Justifications for Admission: Justification of Admission Dx: Yes HU PADILLA MD Sep 15, 2021 13:09
[2021-09-15] MEDS ORDERED: MAGNESIUM SULFATE 2GM 50 ML IV PRN (13:15)
--- NOTE | 2021-09-15 13:38 | PDOC ---
PROGRESS NOTES Date of Service DATE: 09/15/21 TIME: 13:35 Subjective Subjective Patient seen and examined Objective Objective Vital Signs Date Time Temp Pulse Resp B/P (MAP) Pulse Ox O2 Delivery O2 Flow Rate FiO2 09/15/21 09:00 83 136/66 09/15/21 07:00 98.4 16 98 98.4 09/15/21 04:27 Room Air 09/14/21 23:00 2.0 Intake and Output 09/15/21 07:00 Intake Total 920 ml Output Total 2550 ml Balance -1630 ml Intake Oral 920 ml Output Urine Total 2550 ml # Voids 1 # Bowel Movements 1 Physical Exam Abdomen: Normal bowel sounds Heart: Regular rate General: No acute distress Lungs: Other (Mildly decreased breath sound) Assessment Assessment Sepsis with LLE cellulitis. Continuing antibiotics. The patient's lower extremity is looking better. Mild troponin elevation; high sensitivity highest 497. Most probably type II, demand ischemia. CP free. Echo with normal ejection fraction of 50 to 55%, mild left ventricle hypertrophy and mild mitral regurgitation. Severe WILLY on CKD; Cr ^ 3.6 s/p contrast for CTA. Continuing present treatment. Followed by renal. Mild acute probable diastolic CHF secondary to IV hydration, appears compensated CAD noted on chest CTA. Denies prior LHC. No chest pain. Persistent AFIB; previous ablation. rate controlled on Cardizem. Followed with [place] cardiology, Dr. Henry. Elmer as above. Hypertension; controlled Hyperlipidemia. Holding statins in the setting of elevated liver function tests.. Hypothyroidism Elevated d-dimer; CTA negative for PE Comment Review of Relevant I have reviewed the following items vincenzo (where applicable) has been applied. Labs Laboratory Tests Test 09/13/21 16:16 09/13/21 17:00 09/13/21 17:25 09/13/21 20:43 Iron Level 14 ug/dL (65-175) Total Iron Binding Capacity 273 ug/dL (250-450) Iron Saturation 5 % (15-34) Hepatitis A IgM Antibody Nonreactive (Nonreactive) Hepatitis B Surface Antigen Nonreactive (Nonreactive) Hepatitis B Core IgM Antibody Nonreactive (Nonreactive) Hepatitis C IgG Antibody Nonreactive (Nonreactive) Glucose (Fingerstick) 144 mg/dL (70-99) 195 mg/dL (70-99) Urine Collection Type Unknown Urine Color Yellow Urine Clarity Cloudy Urine pH 5.5 (<5.0-8.0) Urine Specific [place] <=1.005 (1.000-1.030) Urine Protein Negative mg/dL (NEG-TRACE) Urine Glucose (UA) 500 mg/dL (NEG) Urine Ketones (Stick) Negative mg/dL (NEG) Urine Blood Large (NEG) Urine Nitrite Negative (NEG) Urine Bilirubin Negative (NEG) Urine Urobilinogen Dipstick 0.2 mg/dL (0.2 mg/dL) Urine Leukocyte Esterase Negative (NEG) Urine RBC 6-10 /HPF (0-2) Urine WBC 5-10 /HPF (0-4) Urine Squamous Epithelial Cells Few /LPF Urine Amorphous Sediment Present /HPF Urine Bacteria 0 /HPF (0-FEW) Urine Granular Casts Moderate /HPF Urine Mucus Slight /LPF Urine Sodium 61 mmol/L (Not Estab.) Urine Potassium 12.2 mmol/L (Not Estab.) Urine Chloride 57 mmol/L (Not Estab.) Test 09/14/21 06:30 09/14/21 07:07 09/14/21 16:59 09/14/21 19:22 Sodium Level 128 mmol/L (136-145) Potassium Level 4.1 mmol/L (3.5-5.1) Chloride Level 96 mmol/L (98-107) Carbon Dioxide Level 22 mmol/L (21-32) Anion Gap 10 (6-14) Blood Urea Nitrogen 46 mg/dL (8-26) Creatinine 4.4 mg/dL (0.7-1.3) Estimated GFR (Cockcroft-Gault) 13.2 Glucose Level 182 mg/dL (70-99) Calcium Level 7.6 mg/dL (8.5-10.1) Total Bilirubin 0.5 mg/dL (0.2-1.0) Direct Bilirubin 0.2 mg/dL (0.0-0.2) Aspartate Amino Transf (AST/SGOT) 237 U/L (15-37) Alanine Aminotransferase (ALT/SGPT) 129 U/L (16-63) Alkaline Phosphatase 170 U/L (46-116) Creatine Kinase 4013 U/L (39-308) Total Protein 5.2 g/dL (6.4-8.2) Albumin 2.1 g/dL (3.4-5.0) Glucose (Fingerstick) 174 mg/dL (70-99) 140 mg/dL (70-99) 203 mg/dL (70-99) Test 09/15/21 06:40 09/15/21 07:15 09/15/21 12:00 Creatine Kinase 1700 U/L (39-308) Glucose (Fingerstick) 144 mg/dL (70-99) 96 mg/dL (70-99) Laboratory Tests Test 09/14/21 16:59 09/14/21 19:22 09/15/21 06:40 09/15/21 07:15 Glucose (Fingerstick) 140 mg/dL (70-99) 203 mg/dL (70-99) 144 mg/dL (70-99) Creatine Kinase 1700 U/L (39-308) Test 09/15/21 12:00 Glucose (Fingerstick) 96 mg/dL (70-99) Medications Current Medications Ceftriaxone Sodium (Rocephin) 1 gm Q24H IVP Last administered on 09/14/21at 21:27; Start 09/12/21 at 21:00 Doxycycline Hyclate 100 mg/ Dextrose 100 ml @ 50 mls/hr Q12HR IV Last administered on 09/15/21at 09:00; Start 09/12/21 at 21:00 Heparin Sodium (Porcine) (Heparin Sodium) 5,000 unit Q8HRS SQ Last administered on 09/15/21at 06:00; Start 09/12/21 at 22:00 Ondansetron HCl (Zofran) 4 mg PRN Q4HRS PRN IVP NAUSEA/VOMITING; Start 09/12/21 at 20:15; Stop 09/12/21 at 23:06; Status DC Acetaminophen (Tylenol) 650 mg PRN Q6HRS PRN PO MILD PAIN / TEMP > 100.3'F; Start 09/12/21 at 20:15; Stop 09/12/21 at 23:07; Status DC Fentanyl Citrate (Fentanyl 2ml Vial) 25 mcg PRN Q3HRS PRN IVP SEVERE PAIN 7-10 Last administered on 09/15/21at 00:33; Start 09/12/21 at 20:15 Tramadol HCl (Ultram) 50 mg PRN Q6HRS PRN PO MOD TO SEVERE PAIN Last administered on 09/14/21at 03:53; Start 09/12/21 at 20:15 Acetaminophen (Tylenol) 1,000 mg PRN Q6HRS PRN PO pain/fever; Start 09/12/21 at 22:45 Ropinirole HCl (Requip) 2 mg TID PO Last administered on 09/15/21 09:00; Start 09/13/21 at 09:00 Vitamin D (Vitamin D3) 1,000 unit DAILY PO Last administered on 09/15/21 09:00; Start 09/13/21 at 09:00 Cyanocobalamin (Vitamin B-12) 200 mcg DAILY PO Last administered on 09/15/21 09:00; Start 09/13/21 at 09:00 Famotidine (Pepcid) 20 mg QHS PO Last administered on 09/14/21 21:26; Start 09/13/21 at 21:00 Fluticasone Propionate (Flonase) 2 spray QHS NS Last administered on 09/14/21 21:26; Start 09/13/21 at 21:00 Albuterol Sulfate (Ventolin Neb Soln) 2.5 mg PRN Q6HRS PRN NEB SHORTNESS OF BREATH Last administered on 09/15/21 04:27; Start 09/12/21 at 23:00 Lactobacillus Rhamnosus (Culturelle) 1 cap BID PO Last administered on 09/15/21 09:00; Start 09/13/21 at 09:00 Levothyroxine Sodium (Synthroid) 75 mcg DAILY06 PO Last administered on 09/15/21 06:00; Start 09/13/21 at 06:00 Ondansetron HCl (Zofran) 4 mg PRN Q6HRS PRN IVP NAUSEA/VOMITING; Start 09/12/21 at 22:45 Triamcinolone Acetonide (Kenalog 0.5%) 1 wood BID TP Last administered on 09/15/21 11:18; Start 09/13/21 at 09:00 Buspirone HCl (Buspar) 10 mg BID PO Last administered on 09/15/21 09:00; Start 09/13/21 at 09:00 Diltiazem HCl (Cardizem 24hr Cd) 240 mg DAILY PO Last administered on 09/15/21 09:00; Start 09/13/21 at 09:00 Ropinirole HCl (Requip) 2 mg TID ONCE PO Last administered on 09/12/21at 23:04; Start 09/12/21 at 23:04; Stop 09/12/21 at 23:05; Status DC Senna/Docusate Sodium (Senna Plus) 1 tab BID PO Last administered on 09/15/21at 09:00; Start 09/13/21 at 09:00 Sodium Chloride 1,000 ml @ 75 mls/hr [id number] IV Last administered on 09/15/21at 05:44; Start 09/13/21 at 11:30 Aspirin (Ecotrin) 81 mg DAILYWBKFT PO Last administered on 09/15/21at 08:00; Start 09/13/21 at 12:30 Furosemide (Lasix) 20 mg BID92 IVP Last administered on 09/15/21at 09:00; Start 09/13/21 at 14:00 Olanzapine (ZyPREXA) 2.5 mg PRN DAILY PRN PO ANXIETY / AGITATION Last administ ered on 09/14/21at 23:03; Start 09/14/21 at 23:00 Magnesium Sulfate 50 ml @ 25 mls/hr PRN DAILY PRN IV for Mag < 1.7 on am labs; Start 09/15/21 at 13:15 Active Scripts Active Naproxen 500 Mg Tablet 1 Tab PO BID PRN Cyclobenzaprine Hcl 10 Mg Tablet 1 Tab PO TID PRN Vitals/I & O Vital Sign - Last 24 Hours 09/14/21 09/14/21 09/14/21 09/14/21 15:00 19:00 20:00 23:00 Temp 98.9 99.2 99.3 98.9 99.2 99.3 Pulse 81 81 85 Resp 18 17 20 B/P (MAP) 115/61 (79) 116/56 (76) 121/55 (77) Pulse Ox 97 98 98 O2 Delivery Room Air Room Air Room Air O2 Flow Rate 2.0 2.0 09/15/21 09/15/21 09/15/21 09/15/21 03:00 04:27 07:00 09:00 Temp 99.4 98.4 99.4 98.4 Pulse 81 83 83 Resp 20 16 B/P (MAP) 130/58 (82) 136/66 (89) 136/66 Pulse Ox 98 96 98 O2 Delivery Room Air Room Air Intake and Output 09/14/21 09/14/21 09/15/21 15:00 23:00 07:00 Intake Total 440 ml 280 ml 200 ml Output Total 1650 ml 900 ml Balance -1210 ml 280 ml -700 ml Justifications for Admission Other Justification Cellulitis ALEXANDER PETERSEN MD Sep 15, 2021 13:38
[2021-09-15 15:00] VITALS: BP 130/61
[2021-09-15] MEDS: traMADol 50 MG TABLET PO PRN ×2 (15:02→21:34)
--- NOTE | 2021-09-15 17:04 | PDOC ---
PROGRESS NOTES Date of Service: DATE: 09/15/21 TIME: 17:02 Chief Complaint Chief Complaint Fall at home - with weakness. PT/OT for ADLs, may need skilled services on d/c Sepsis - was present prior to admission. Cont antibiotics LLE cellulitis - likely related to traumatic fall, no evidence of acute fracture or dislocation on tib-fib x-ray of his left lower extremity, cont antibiotics, will change to rocephin, doxycycline WILLY on CKD - baseline Cr ~2, now 4.3. Follow nephrology operational risk consultant recommendations Transaminitis - large transaminase elevation, not in shock, will monitor trend, check hepatitis serologies, TSH, iron, ferritin Troponin elevation - HS trop peaked at 497, likely demand ischemia follow recommendations from operational risk consultant Mild acute probable diastolic CHF secondary to IV hydration fluid overload, diuresis as per operational risk consultant WILLY/ATN with possible interstitial nephritis Triple vessel disease CAD - on chest CTA. sees Dr. Henry at [facility] AFIB - s/p ablation. is permanent, rate controlled on Cardizem. Xarelto for stroke prophylaxis. Follow with [place] cardiology, Dr. Henry Hypertension - cont home meds Hyperlipidemia - statin Hypothyroidism - on levothyroxine DM2 - sliding scale insulin Severe protein calorie malnutrition - due to infection, will have intelligence intern to see FEN - cardiac diet PPX - xarelto FULL CODE Dispo -patient will likely need home health services moving forward. We will continue to monitor on a daily basis and follow recommendations from physical therapy for final disposition follow recs from consultants History of Present Illness History of Present Illness Mr Lozano is a 75yo male [place] with PMHx atrial fibrillation, hypertension, hyperlipidemia, type 2 diabetes mellitus, coronary artery disease, hypothyroidism, and generalized osteoarthritis who presented to [facility] in [place] on 09/10/2021 after he was doing poorly having difficulty walking at home even with walker and [facility] to the couch contact EMS to be brought to the hospital. He thinks the day prior 09/09/2021 he was diagnosed with pneumonia at the [facility], he initially requested to go to [facility] but was diverted to [facility] due to high volume at [facility]. There he noted a week of progressive weakness and shortness of breath. He had CTPA which showed that there is no evidence of acute or chronic pulmonary emboli. There is bronchial wall thickening compatible with nonspecific bronchitis. There are at least 2-4 mm solid noncalcified pulmonary nodules, cardiomegaly with 3-vessel coronary vascular calcification. EKG was afib. WBC 24.6, Hb 14.7, platelets 281 NA 132, K3.5, BUN 25, CR 2.3, glucose 172, bilirubin 1.3, AST 340, ALT 76, alk phos 118, high-sensitivity troponin I 46, TSH 3, COVID-19 PCR negative Was admitted with sepsis, treated aggressively with IV fluid, started on meropenem and vancomycin. Over the course of 3 days troponin peaked at 4 9711 9 lactic acid peaked at 4.1 on 11 , 1110 AST 77 ALT 150 albumin 2, level 11 NA 120 7K3.8, BUN 47, CR 4.3 vancomycin trough 26.2. Given his elevated troponin, cardiology was consulted at [facility]. Given his worsening renal function is called for transfer to [facility] for consideration of nephrology consultation. Seen bedside patient notes that before his initial admission at [facility] he was doing much worse than he currently is but he still can't walk on his own, thinks his left leg looks be 09/13/2021 No acute events reported overnight, case discussed with nursing staff patient in no acute distress no complaints during my visit Still complaining of left leg discomfort but greatly improved. Reassurance provided Reassess in the a.m. Follow recommendations from consultants 09/14/2021 No acute events reported overnight, case discussed with nursing staff patient in no acute distress no complaints during my visit 09/15/2021 His left lower extremity seems much improved. Patient quite anxious to know what the next step will be. Reassurance has been provided and the plan of care explained in detail. No acute events reported overnight Discussed with nursing staff Vitals Vitals Vital Signs Date Time Temp Pulse Resp B/P (MAP) Pulse Ox O2 Delivery O2 Flow Rate FiO2 09/15/21 15:02 19 93 Room Air 09/15/21 09:00 83 136/66 09/15/21 07:00 98.4 98.4 09/14/21 23:00 2.0 Physical Exam General: No acute distress Heart: Regular rate Abdomen: Normal bowel sounds Extremities: No cyanosis Skin: No breakdown Labs LABS Laboratory Tests Test 09/14/21 19:22 09/15/21 06:40 09/15/21 07:15 09/15/21 12:00 Glucose (Fingerstick) 203 mg/dL (70-99) 144 mg/dL (70-99) 96 mg/dL (70-99) Creatine Kinase 1700 U/L (39-308) Comment Review of Relevant I have reviewed the following items vincenzo (where applicable) has been applied. Labs Laboratory Tests Test 09/13/21 17:25 09/13/21 20:43 09/14/21 06:30 09/14/21 07:07 Urine Collection Type Unknown Urine Color Yellow Urine Clarity Cloudy Urine pH 5.5 (<5.0-8.0) Urine Specific [place] <=1.005 (1.000-1.030) Urine Protein Negative mg/dL (NEG-TRACE) Urine Glucose (UA) 500 mg/dL (NEG) Urine Ketones (Stick) Negative mg/dL (NEG) Urine Blood Large (NEG) Urine Nitrite Negative (NEG) Urine Bilirubin Negative (NEG) Urine Urobilinogen Dipstick 0.2 mg/dL (0.2 mg/dL) Urine Leukocyte Esterase Negative (NEG) Urine RBC 6-10 /HPF (0-2) Urine WBC 5-10 /HPF (0-4) Urine Squamous Epithelial Cells Few /LPF Urine Amorphous Sediment Present /HPF Urine Bacteria 0 /HPF (0-FEW) Urine Granular Casts Moderate /HPF Urine Mucus Slight /LPF Urine Sodium 61 mmol/L (Not Estab.) Urine Potassium 12.2 mmol/L (Not Estab.) Urine Chloride 57 mmol/L (Not Estab.) Glucose (Fingerstick) 195 mg/dL (70-99) 174 mg/dL (70-99) Sodium Level 128 mmol/L (136-145) Potassium Level 4.1 mmol/L (3.5-5.1) Chloride Level 96 mmol/L (98-107) Carbon Dioxide Level 22 mmol/L (21-32) Anion Gap 10 (6-14) Blood Urea Nitrogen 46 mg/dL (8-26) Creatinine 4.4 mg/dL (0.7-1.3) Estimated GFR (Cockcroft-Gault) 13.2 Glucose Level 182 mg/dL (70-99) Calcium Level 7.6 mg/dL (8.5-10.1) Total Bilirubin 0.5 mg/dL (0.2-1.0) Direct Bilirubin 0.2 mg/dL (0.0-0.2) Aspartate Amino Transf (AST/SGOT) 237 U/L (15-37) Alanine Aminotransferase (ALT/SGPT) 129 U/L (16-63) Alkaline Phosphatase 170 U/L (46-116) Creatine Kinase 4013 U/L (39-308) Total Protein 5.2 g/dL (6.4-8.2) Albumin 2.1 g/dL (3.4-5.0) Test 09/14/21 16:59 09/14/21 19:22 09/15/21 06:40 09/15/21 07:15 Glucose (Fingerstick) 140 mg/dL (70-99) 203 mg/dL (70-99) 144 mg/dL (70-99) Creatine Kinase 1700 U/L (39-308) Test 09/15/21 12:00 Glucose (Fingerstick) 96 mg/dL (70-99) Laboratory Tests Test 09/14/21 19:22 09/15/21 06:40 09/15/21 07:15 09/15/21 12:00 Glucose (Fingerstick) 203 mg/dL (70-99) 144 mg/dL (70-99) 96 mg/dL (70-99) Creatine Kinase 1700 U/L (39-308) Medications Current Medications Ceftriaxone Sodium (Rocephin) 1 gm Q24H IVP Last administered on 09/14/21at 21:27; Start 09/12/21 at 21:00 Doxycycline Hyclate 100 mg/ Dextrose 100 ml @ 50 mls/hr Q12HR IV Last administered on 09/15/21at 09:00; Start 09/12/21 at 21:00 Heparin Sodium (Porcine) (Heparin Sodium) 5,000 unit Q8HRS SQ Last administered on 09/15/21at 15:10; Start 09/12/21 at 22:00 Ondansetron HCl (Zofran) 4 mg PRN Q4HRS PRN IVP NAUSEA/VOMITING; Start 09/12/21 at 20:15; Stop 09/12/21 at 23:06; Status DC Acetaminophen (Tylenol) 650 mg PRN Q6HRS PRN PO MILD PAIN / TEMP > 100.3'F; Start 09/12/21 at 20:15; Stop 09/12/21 at 23:07; Status DC Fentanyl Citrate (Fentanyl 2ml Vial) 25 mcg PRN Q3HRS PRN IVP SEVERE PAIN 7-10 Last administered on 09/15/21 00:33; Start 09/12/21 at 20:15 Tramadol HCl (Ultram) 50 mg PRN Q6HRS PRN PO MOD TO SEVERE PAIN Last administered on 09/15/21 15:02; Start 09/12/21 at 20:15 Acetaminophen (Tylenol) 1,000 mg PRN Q6HRS PRN PO pain/fever; Start 09/12/21 at 22:45 Ropinirole HCl (Requip) 2 mg TID PO Last administered on 09/15/21 15:02; Start 09/13/21 at 09:00 Vitamin D (Vitamin D3) 1,000 unit DAILY PO Last administered on 09/15/21 09:00; Start 09/13/21 at 09:00 Cyanocobalamin (Vitamin B-12) 200 mcg DAILY PO Last administered on 09/15/21 09:00; Start 09/13/21 at 09:00 Famotidine (Pepcid) 20 mg QHS PO Last administered on 09/14/21 21:26; Start 09/13/21 at 21:00 Fluticasone Propionate (Flonase) 2 spray QHS NS Last administered on 09/14/21 21:26; Start 09/13/21 at 21:00 Albuterol Sulfate (Ventolin Neb Soln) 2.5 mg PRN Q6HRS PRN NEB SHORTNESS OF BREATH Last administered on 09/15/21at 04:27; Start 09/12/21 at 23:00 Lactobacillus Rhamnosus (Culturelle) 1 cap BID PO Last administered on 09/15/21 09:00; Start 09/13/21 at 09:00 Levothyroxine Sodium (Synthroid) 75 mcg DAILY06 PO Last administered on 09/15/21 06:00; Start 09/13/21 at 06:00 Ondansetron HCl (Zofran) 4 mg PRN Q6HRS PRN IVP NAUSEA/VOMITING; Start 09/12/21 at 22:45 Triamcinolone Acetonide (Kenalog 0.5%) 1 wood BID TP Last administered on 09/15/21at 11:18; Start 09/13/21 at 09:00 Buspirone HCl (Buspar) 10 mg BID PO Last administered on 09/15/21at 09:00; Start 09/13/21 at 09:00 Diltiazem HCl (Cardizem 24hr Cd) 240 mg DAILY PO Last administered on 09/15/21at 09:00; Start 09/13/21 at 09:00 Ropinirole HCl (Requip) 2 mg TID ONCE PO Last administered on 09/12/21at 23:04; Start 09/12/21 at 23:04; Stop 09/12/21 at 23:05; Status DC Senna/Docusate Sodium (Senna Plus) 1 tab BID PO Last administered on 09/15/21at 09:00; Start 09/13/21 at 09:00 Sodium Chloride 1,000 ml @ 75 mls/hr [id number] IV Last administered on 09/15/21at 05:44; Start 09/13/21 at 11:30 Aspirin (Ecotrin) 81 mg DAILYWBKFT PO Last administered on 09/15/21at 08:00; Start 09/13/21 at 12:30 Furosemide (Lasix) 20 mg BID92 IVP Last administered on 09/15/21at 15:02; Start 09/13/21 at 14:00 Olanzapine (ZyPREXA) 2.5 mg PRN DAILY PRN PO ANXIETY / AGITATION Last administered on 09/14/21at 23:03; Start 09/14/21 at 23:00 Magnesium Sulfate 50 ml @ 25 mls/hr PRN DAILY PRN IV for Mag < 1.7 on am labs; Start 09/15/21 at 13:15 Active Scripts Active Naproxen 500 Mg Tablet 1 Tab PO BID PRN Cyclobenzaprine Hcl 10 Mg Tablet 1 Tab PO TID PRN Vitals/I & O Vital Sign - Last 24 Hours 09/14/21 09/14/21 09/14/21 09/15/21 19:00 20:00 23:00 03:00 Temp 99.2 99.3 99.4 99.2 99.3 99.4 Pulse 81 85 81 Resp 17 20 20 B/P (MAP) 116/56 (76) 121/55 (77) 130/58 (82) Pulse Ox 98 98 98 O2 Delivery Room Air Room Air Room Air Room Air O2 Flow Rate 2.0 2.0 09/15/21 09/15/21 09/15/21 09/15/21 04:27 07:00 09:00 15:02 Temp 98.4 98.4 Pulse 83 83 Resp 16 19 B/P (MAP) 136/66 (89) 136/66 Pulse Ox 96 98 93 O2 Delivery Room Air Room Air Intake and Output 09/14/21 09/14/21 09/15/21 15:00 23:00 07:00 Intake Total 440 ml 280 ml 200 ml Output Total 1650 ml 900 ml Balance -1210 ml 280 ml -700 ml Justicifation of Admission Dx: Justifications for Admission: Justification of Admission Dx: Yes TIP CARROLL MD Sep 15, 2021 17:04
[2021-09-15 19:00] VITALS: BP 125/62
[2021-09-15] MEDS: FLUTICASONE 50MCG/NASAL SPRAY 16GM BOTTLE. NS SCH (21:00)
[2021-09-15] MEDS: cefTRIAXone IV Push 1 GM VIAL. IVP SCH (21:33)
[2021-09-15] MEDS: OLANZapine 2.5 MG TABLET PO PRN (21:34)
[2021-09-15] MEDS: FAMOTIDINE 20 MG TABLET. PO SCH (21:34)
[2021-09-15 23:00] VITALS: BP 135/68
[2021-09-16] MEDS: IV NORMAL SALINE 1000ML BAG 1,000 ML IV SCH ×3 (00:04→20:04)
[2021-09-16 03:10] VITALS: BP 105/59
[2021-09-16 04:50] LABS: BASO % 1 % (0-3); EOS # 0.2 x10^3/uL (0.0-0.7); EOS % 3 % (0-3); HEMATOCRIT 30.8 % (39.0-53.0); LYMPH # 0.7 x10^3/uL (1.0-4.8); LYMPH % 9 % (24-48); MEAN CORPUSCULAR HEMOGLOBIN 26 pg (25-35); MEAN CORPUSCULAR HGB CONC 33 g/dL (31-37); MEAN CORPUSCULAR VOLUME 80 fL (79-100); MONO # 0.7 x10^3/uL (0.0-1.1); MONO % 8 % (0-9); NEUT # 6.7 x10^3/uL (1.8-7.7); NEUT % 80 % (31-73); PLATELET COUNT 288 x10^3/uL (140-400); RED BLOOD COUNT 3.83 x10^6/uL (4.30-5.70); RED CELL DISTRIBUTION WIDTH 17.5 % (11.5-14.5); WHITE BLOOD COUNT 8.3 x10^3/uL (4.0-11.0)
[2021-09-16 05:06] LABS: CALCIUM 8.3 mg/dL (8.5-10.1); CREATININE 3.5 mg/dL (0.7-1.3); GFR 17.2; PHOSPHORUS 4.5 mg/dL (2.6-4.7); POTASSIUM 3.6 mmol/L (3.5-5.1)
[2021-09-16] MEDS: LEVOTHYROXINE 75 MCG TABLET PO SCH (05:33)
[2021-09-16] MEDS: HEPARIN for SUB-Q USE 5,000 UNIT/ML VIAL. SQ SCH ×3 (05:41→22:49)
[2021-09-16 07:00] VITALS: BP 137/75
[2021-09-16] MEDS ORDERED: FLU VACC QUAD 21-22 (6MOS+) PF 0.5 ML SYRINGE. VAX IM ONE (09:00)
--- NOTE | 2021-09-16 09:41 | PDOC ---
DATE OF SERVICE DATE: 09/16/21 TIME: 09:41 SUBJECTIVE ROS No complaints OBJECTIVE Vital Signs Vital Signs Date Time Temp Pulse Resp B/P (MAP) Pulse Ox O2 Delivery O2 Flow Rate FiO2 09/16/21 07:00 97.9 76 18 137/75 (95) 97 97.9 09/16/21 03:10 Room Air I & 0 Intake and Output 09/16/21 07:00 Intake Total 4340 ml Output Total 5600 ml Balance -1260 ml Intake Oral 3340 ml IV Total 1000 ml Output Urine Total 5600 ml # Bowel Movements 3 PHYSICAL EXAM Physical Exam GEN: Awake, Oriented x 3, In no distress EYES: Vision Unchanged, Conjunctiva Normal EN: No EN Drainage, Mucous Membranes moist NECK: no JVD, no JVP, Supple, no Thyromegaly CVS: S1S2, no Murmur, No Gallop, No Rub,++ Edema Left L Ext RESP: no Rales, no Rhonchi,no Acc. Muscle Use GI: BS + ve, NO Bruit, Non Tender, Non Distended : no CVA tenderness, no Suprapubic Tenderness DIAGNOSIS/ASSESSMENT Assessment & Plan WILLY/ATN with possible interstitial nephritis Urine output is adequate as documented. Creat trending down 4.6-->3.5 , E-Lytes stable, supportive care, strict I/O, avoid Nephrotoxins . On lasix as well ,monitor CKD stage III Suspect baseline Cr 2.0 Iron deficiency ANEMIA; defer to primary FALL AT HOME: CPK noted to be approximately 4000 on arrival, now trending downwards. Continue IV fluids Known history of CAD - WITH INCREASED TROPONIN LEVELS. Cardiology following. EF normal at this time Elevated LFTs will be deferred to primary team/consider GI consultation. May be associated with elevated CPK COMMENT/RELEVANT DATA Meds Current Medications Medications (Trade) Dose Ordered Sig/Lisa Start Time Stop Time Status Last Admin Dose Admin Acetaminophen (Tylenol) 1,000 mg PRN Q6HRS PRN 09/12/21 22:45 Albuterol Sulfate (Ventolin Neb Soln) 2.5 mg PRN Q6HRS PRN 09/12/21 23:00 09/15/21 04:27 2.5 MG Aspirin (Ecotrin) 81 mg [id number] 09/13/21 12:30 09/15/21 08:00 81 MG Buspirone HCl (Buspar) 10 mg BID 09/13/21 09:00 09/15/21 21:34 10 MG Ceftriaxone Sodium (Rocephin) 1 gm Q24H 09/12/21 21:00 09/15/21 21:33 1 GM Cyanocobalamin (Vitamin B-12) 200 mcg DAILY 09/13/21 09:00 09/15/21 09:00 200 MCG Diltiazem HCl (Cardizem 24hr Cd) 240 mg DAILY 09/13/21 09:00 09/15/21 09:00 240 MG Doxycycline Hyclate 100 mg/ Dextrose 100 ml @ 50 mls/hr Q12HR 09/12/21 21:00 09/15/21 21:36 50 MLS/HR Famotidine (Pepcid) 20 mg QHS 09/13/21 21:00 09/15/21 21:34 20 MG Fentanyl Citrate (Fentanyl 2ml Vial) 25 mcg PRN Q3HRS PRN 09/12/21 20:15 09/15/21 00:33 25 MCG Fluticasone Propionate (Flonase) 2 spray QHS 09/13/21 21:00 09/15/21 21:00 2 SPRAY Furosemide (Lasix) 20 mg [id number] 09/13/21 14:00 09/15/21 15:02 20 MG Heparin Sodium (Porcine) (Heparin Sodium) 5,000 unit Q8HRS 09/12/21 22:00 09/16/21 05:41 5,000 UNIT Influenza Virus Vaccine Quadrival (Flulaval Quad 1341-0452 Syringe) 0.5 ml ONCE ONCE 09/16/21 09:00 09/16/21 09:01 DC Lactobacillus Rhamnosus (Culturelle) 1 cap BID 09/13/21 09:00 09/15/21 21:34 1 CAP Levothyroxine Sodium (Synthroid) 75 mcg DAILY06 09/13/21 06:00 09/16/21 05:33 75 MCG Magnesium Sulfate 50 ml @ 25 mls/hr PRN DAILY PRN 09/15/21 13:15 Olanzapine (ZyPREXA) 2.5 mg PRN DAILY PRN 09/14/21 23:00 09/15/21 21:34 2.5 MG Ondansetron HCl (Zofran) 4 mg PRN Q6HRS PRN 09/12/21 22:45 Ropinirole HCl (Requip) 2 mg TID ONCE 09/12/21 23:04 09/12/21 23:05 DC 09/12/21 23:04 2 MG Senna/Docusate Sodium (Senna Plus) 1 tab BID 09/13/21 09:00 09/15/21 09:00 1 TAB Sodium Chloride 1,000 ml @ 75 mls/hr [id number] 09/13/21 11:30 09/16/21 00:04 75 MLS/HR Tramadol HCl (Ultram) 50 mg PRN Q6HRS PRN 09/12/21 20:15 09/15/21 21:34 50 MG Triamcinolone Acetonide (Kenalog 0.5%) 1 wood BID 09/13/21 09:00 09/15/21 21:00 1 WOOD Vitamin D (Vitamin D3) 1,000 unit DAILY 09/13/21 09:00 09/15/21 09:00 1,000 UNIT Lab Laboratory Tests Test 09/15/21 12:00 09/15/21 17:04 09/15/21 21:16 09/16/21 04:05 Glucose (Fingerstick) 96 mg/dL (70-99) 161 mg/dL (70-99) 155 mg/dL (70-99) White Blood Count 8.3 x10^3/uL (4.0-11.0) Red Blood Count 3.83 x10^6/uL (4.30-5.70) Hemoglobin 10.0 g/dL (13.0-17.5) Hematocrit 30.8 % (39.0-53.0) Mean Corpuscular Volume 80 fL (79-100) Mean Corpuscular Hemoglobin 26 pg (25-35) Mean Corpuscular Hemoglobin Concent 33 g/dL (31-37) Red Cell Distribution Width 17.5 % (11.5-14.5) Platelet Count 288 x10^3/uL (140-400) Neutrophils (%) (Auto) 80 % (31-73) Lymphocytes (%) (Auto) 9 % (24-48) Monocytes (%) (Auto) 8 % (0-9) Eosinophils (%) (Auto) 3 % (0-3) Basophils (%) (Auto) 1 % (0-3) Neutrophils # (Auto) 6.7 x10^3/uL (1.8-7.7) Lymphocytes # (Auto) 0.7 x10^3/uL (1.0-4.8) Monocytes # (Auto) 0.7 x10^3/uL (0.0-1.1) Eosinophils # (Auto) 0.2 x10^3/uL (0.0-0.7) Basophils # (Auto) 0.0 x10^3/uL (0.0-0.2) Sodium Level 133 mmol/L (136-145) Potassium Level 3.6 mmol/L (3.5-5.1) Chloride Level 98 mmol/L (98-107) Carbon Dioxide Level 25 mmol/L (21-32) Anion Gap 10 (6-14) Blood Urea Nitrogen 44 mg/dL (8-26) Creatinine 3.5 mg/dL (0.7-1.3) Estimated GFR (Cockcroft-Gault) 17.2 Glucose Level 114 mg/dL (70-99) Calcium Level 8.3 mg/dL (8.5-10.1) Phosphorus Level 4.5 mg/dL (2.6-4.7) Magnesium Level 1.9 mg/dL (1.8-2.4) Creatine Kinase 765 U/L (39-308) Albumin 2.0 g/dL (3.4-5.0) Test 09/16/21 07:17 Glucose (Fingerstick) 163 mg/dL (70-99) Results All relevant outside records, renal labs, imaging studies, telemetry/EKG's were reviewed. Justicifation of Admission Dx: Justifications for Admission: Justification of Admission Dx: Yes JAJA WESTBROOK MD Sep 16, 2021 09:41
[2021-09-16] MEDS: busPIRone 10 MG TABLET. PO SCH ×2 (09:54→19:50)
[2021-09-16] MEDS: ASPIRIN ENTERIC COATED 81 MG TABLET.DR. PO SCH (09:54)
[2021-09-16] MEDS: rOPINIRole 1 MG TABLET. PO SCH ×3 (09:54→19:50)
[2021-09-16] MEDS: LACTOBACILLUS RHAMNOSUS GG 1 CAPSULE. PO SCH ×2 (09:54→19:50)
[2021-09-16] MEDS: CYANOCOBALAMIN (VITAMIN B-12) 100 MCG TABLET. PO SCH (09:55)
[2021-09-16] MEDS: FUROSEMIDE 20 MG/2 ML VIAL. IVP SCH ×2 (09:55→15:14)
[2021-09-16] MEDS: SENNOSIDES/DOCUSATE 8.6/50MG TABLET. PO SCH ×2 (09:55→19:50)
[2021-09-16] MEDS: DOXYCYCLINE HYCLATE 100 MG in IV DEXTROSE 5% 100ML 100 ML IV SCH ×2 (09:56→19:52)
[2021-09-16] MEDS: TRIAMCINOLONE ACETONIDE 0.5% TOPICAL CREAM 15GM TUBE. TP SCH ×2 (09:57→19:58)
[2021-09-16] MEDS: CHOLECALCIFEROL (VITAMIN D3) 1,000 UNIT TABLET PO SCH (09:57)
[2021-09-16] MEDS: traMADol 50 MG TABLET PO PRN ×2 (10:08→19:52)
[2021-09-16] MEDS: OLANZapine 2.5 MG TABLET PO PRN (10:08)
--- NOTE | 2021-09-16 10:10 | PDOC ---
ELOISE GRAY CANDLE WRAPPING MACHINE OPERATOR 09/16/21 1010: CARDIO Progress Notes Date and Time Date of Service 09/16/21 Time of Evaluation 1000 Subjective Subjective: No Chest Pain, No shortness of breath, No Palpitations Vitals Vitals Vital Signs Date Time Temp Pulse Resp B/P (MAP) Pulse Ox O2 Delivery O2 Flow Rate FiO2 09/16/21 07:00 97.9 76 18 137/75 (95) 97 97.9 09/16/21 03:10 Room Air Weight Weight [ ] Input and Output Intake and Output Intake and Output 09/16/21 07:00 Intake Total 4340 ml Output Total 5600 ml Balance -1260 ml Intake Oral 3340 ml IV Total 1000 ml Output Urine Total 5600 ml # Bowel Movements 3 Laboratory Labs Laboratory Tests Test 09/15/21 12:00 09/15/21 17:04 09/15/21 21:16 09/16/21 04:05 Glucose (Fingerstick) 96 mg/dL (70-99) 161 mg/dL (70-99) 155 mg/dL (70-99) White Blood Count 8.3 x10^3/uL (4.0-11.0) Red Blood Count 3.83 x10^6/uL (4.30-5.70) Hemoglobin 10.0 g/dL (13.0-17.5) Hematocrit 30.8 % (39.0-53.0) Mean Corpuscular Volume 80 fL (79-100) Mean Corpuscular Hemoglobin 26 pg (25-35) Mean Corpuscular Hemoglobin Concent 33 g/dL (31-37) Red Cell Distribution Width 17.5 % (11.5-14.5) Platelet Count 288 x10^3/uL (140-400) Neutrophils (%) (Auto) 80 % (31-73) Lymphocytes (%) (Auto) 9 % (24-48) Monocytes (%) (Auto) 8 % (0-9) Eosinophils (%) (Auto) 3 % (0-3) Basophils (%) (Auto) 1 % (0-3) Neutrophils # (Auto) 6.7 x10^3/uL (1.8-7.7) Lymphocytes # (Auto) 0.7 x10^3/uL (1.0-4.8) Monocytes # (Auto) 0.7 x10^3/uL (0.0-1.1) Eosinophils # (Auto) 0.2 x10^3/uL (0.0-0.7) Basophils # (Auto) 0.0 x10^3/uL (0.0-0.2) Sodium Level 133 mmol/L (136-145) Potassium Level 3.6 mmol/L (3.5-5.1) Chloride Level 98 mmol/L (98-107) Carbon Dioxide Level 25 mmol/L (21-32) Anion Gap 10 (6-14) Blood Urea Nitrogen 44 mg/dL (8-26) Creatinine 3.5 mg/dL (0.7-1.3) Estimated GFR (Cockcroft-Gault) 17.2 Glucose Level 114 mg/dL (70-99) Calcium Level 8.3 mg/dL (8.5-10.1) Phosphorus Level 4.5 mg/dL (2.6-4.7) Magnesium Level 1.9 mg/dL (1.8-2.4) Creatine Kinase 765 U/L (39-308) Albumin 2.0 g/dL (3.4-5.0) Test 09/16/21 07:17 Glucose (Fingerstick) 163 mg/dL (70-99) Physical Exam HEENT: Neck Supple W Full Motion Chest: Symmetric LUNGS: Other (diminished bases) Heart: irregularly irregular (AFIB, rate controlled ) Abdomen: Other (protuberant) Extremities: Other (LLE cellulitis) Neurology: alert, oriented, follow commands Assessment Assessment 1. Weakness 2. Sepsis with LLE cellulitis 3. Mild troponin elevation; high sensitivity highest 497. Most probably type II, demand ischemia. CP free now normalized 4. Severe WILLY on CKD; Cr better at 3.5. Good UOP 5. Mild acute diastolic CHF secondary to IV hydration, appears compensated. Echo with preserved LV systolic function 6. CAD noted on chest CTA. Denies prior LHC. 7. Persistent AFIB; previous ablation. rate controlled on Cardizem. Follows with [facility] cardiology, Dr. Henry 8. Hypertension; controlled 9. Hyperlipidemia 10. Elevated LFTs 11. Hypothyroidism 12. Elevated d-dimer; CTA negative for PE Recommendations Cardizem for rate control ASA therapy. Eliquis for stroke prophylaxis upon discharge Low-dose diuretic therapy Avoid nephrotoxins, monitor renal function No statin with elevated LFTs Ongoing antibiotic therapy, treatment of LLE cellulitis Outpatient ischemic evaluation Consider outpatient referral for LAAO Supportive care Justicifation of Admission Dx: Justifications for Admission: Justification of Admission Dx: Yes RICHARDSON CROCKETT MD 09/16/21 1630: CARDIO Progress Notes Plan Plan Patient seen and examined. Agree with above nurse practitioner note. Continue current medical therapy including antibiotics. From a cardiovascular perspective he appears to be stable. No significant heart failure noted. We will likely initiate anticoagulation upon discharge for his long-term atrial fibrillation unless there are any plans for renal biopsy or dialysis catheter placement. Supportive care for now ELOISE GRAY LAY Sep 16, 2021 10:10 RICHARDSON CROCKETT MD Sep 16, 2021 16:30
--- NOTE | 2021-09-16 10:19 | PDOC ---
Date of Service: DATE: 09/16/21 TIME: 10:11 Subjective: Subjective: No GI complaints. Eating some, enjoying coffee. Has stooled. Objective: Vital Signs: Vital Signs Date Time Temp Pulse Resp B/P (MAP) Pulse Ox O2 Delivery O2 Flow Rate FiO2 09/16/21 10:08 20 93 Room Air 09/16/21 09:54 76 137/75 09/16/21 07:00 97.9 97.9 Labs: Laboratory Tests Test 09/15/21 12:00 09/15/21 17:04 09/15/21 21:16 09/16/21 07:17 Glucose (Fingerstick) 96 mg/dL (70-99) 161 mg/dL (70-99) 155 mg/dL (70-99) 163 mg/dL (70-99) Imaging: Abd US 09/13 FINDINGS: The liver is homogeneous in echotexture. No significant focal liver lesion is seen. Liver size is borderline increased 18.4 cm length. The biliary tree does not appear dilated. The gallbladder was not well distended. The wall is borderline thickened at 3 mm. No stones are seen. There is no pericholecystic fluid. The right kidney has normal cortical thickness and echogenicity without apparent mass or obstruction. It measures 13.4 cm in length. Pancreas was poorly seen. PE: GEN: NAD, was sleeping, bit [place] LUNGS: CTAB HEART: RRR ABD: S/ND/NT NEURO/PSYCH: A & O 3 A/P: Elevated LFTs/normal bili - viral Hep negative, US unrevealing YOGESH - no obvious bleeding, on ASA and B12, ?Eliquis, past EGD recalled as normal, h/o polyps (none in 2017 - 5 yr f/u recommended) H/o heartburn - on H2 damien here H/o constipation - stooling Cellulitis, A Fib, WILLY/CKD, elevated CK -- Continue acid-director loss prevention and regular constipation treatment. Follow LFTs and Hgb. Plan for outpt scopes. Justicifation of Admission Dx: Justifications for Admission: Justification of Admission Dx: Yes ARMIDA HAMILTON Sep 16, 2021 10:19
[2021-09-16 11:00] VITALS: BP 155/71
--- NOTE | 2021-09-16 13:24 | PDOC ---
[employer] PROGRESS NOTE Date of Service DOS: DATE: 09/16/21 TIME: 13:23 Chief Complaint Chief Complaint Fall at home - with weakness. PT/OT for ADLs, may need skilled services on d/c Sepsis - was present prior to admission. Cont antibiotics LLE cellulitis - likely related to traumatic fall, no evidence of acute fracture or dislocation on tib-fib x-ray of his left lower extremity, cont antibiotics, will change to rocephin, doxycycline WILLY on CKD - baseline Cr ~2, now 4.3. Follow nephrology internal controls consultant recommendations Transaminitis - large transaminase elevation, not in shock, will monitor trend, check hepatitis serologies, TSH, iron, ferritin Troponin elevation - HS trop peaked at 497, likely demand ischemia follow recommendations from internal controls consultant Mild acute probable diastolic CHF secondary to IV hydration fluid overload, diuresis as per internal controls consultant WILLY/ATN with possible interstitial nephritis Triple vessel disease CAD - on chest CTA. sees Dr. Henry at [facility] AFIB - s/p ablation. is permanent, rate controlled on Cardizem. Xarelto for stroke prophylaxis. Follow with [facility] cardiology, Dr. Henry Hypertension - cont home meds Hyperlipidemia - statin Hypothyroidism - on levothyroxine DM2 - sliding scale insulin Severe protein calorie malnutrition - due to infection, will have registered nurse supervisor to see FEN - cardiac diet PPX - xarelto FULL CODE Dispo -patient will likely need home health services moving forward. We will continue to monitor on a daily basis and follow recommendations from physical therapy for final disposition follow recs from consultants History of Present Illness History of Present Illness Mr Lozano is a 75yo male [place] with PMHx atrial fibrillation, hypertension, hyperlipidemia, type 2 diabetes mellitus, coronary artery disease, hypothyroidism, and generalized osteoarthritis who presented to [facility] in [place] on 09/10/2021 after he was doing poorly having difficulty walking at home even with walker and [facility] contact EMS to be brought to the hospital. He thinks the day prior 09/09/2021 he was diagnosed with pneumonia at the [facility], he initially requested to go to [facility] but was diverted to [facility] due to high volume at [facility]. There he noted a week of progressive weakness and shortness of breath. He had CTPA which showed that there is no evidence of acute or chronic pulmonary emboli. There is bronchial wall thickening compatible with nonspecific bronchitis. There are at least 2-4 mm solid noncalcified pulmonary nodules, cardiomegaly with 3-vessel coronary vascular calcification. EKG was afib. WBC 24.6, Hb 14.7, platelets 281 NA 132, K3.5, BUN 25, CR 2.3, glucose 172, bilirubin 1.3, AST 340, ALT 76, alk phos 118, high-sensitivity troponin I 46, TSH 3, COVID-19 PCR negative Was admitted with sepsis, treated aggressively with IV fluid, started on meropenem and vancomycin. Over the course of 3 days troponin peaked at 4 9711 9 lactic acid peaked at 4.1 on 11 1110 AST 77 ALT 150 albumin 2, level 11 NA 120 7K3.8, BUN 47, CR 4.3 vancomycin trough 26.2. Given his elevated troponin, cardiology was consulted at [facility]. Given his worsening renal function is called for transfer to [facility] for consideration of nephrology consultation. Seen bedside patient notes that before his initial admission at [facility] he was doing much worse than he currently is but he still can't walk on his own, thinks his left leg looks be 09/13/2021 No acute events reported overnight, case discussed with nursing staff patient in no acute distress no complaints during my visit Still complaining of left leg discomfort but greatly improved. Reassurance provided Reassess in the a.m. Follow recommendations from consultants 09/14/2021 No acute events reported overnight, case discussed with nursing staff patient in no acute distress no complaints during my visit 09/15/2021 His left lower extremity seems much improved. Patient quite anxious to know what the next step will be. Reassurance has been provided and the plan of care explained in detail. No acute events reported overnight Discussed with nursing staff 09/16 Patient evaluated and examined at bedside. Lower extremity continues to improve. Creatinine slowly trending down. Continue to monitor this daily. Continue antibiotics. If creatinine continues to improve can likely discharge soon. But patient will require SNF placement. Vitals/I&O Vitals/I&O: Vital Signs Date Time Temp Pulse Resp B/P (MAP) Pulse Ox O2 Delivery O2 Flow Rate FiO2 09/16/21 11:00 98.2 70 18 155/71 (99) 97 98.2 09/16/21 10:43 Room Air I & O 09/15/21 09/15/21 09/16/21 15:00 23:00 07:00 Intake Total 820 ml 400 ml 3120 ml Output Total 1400 ml 2000 ml 2200 ml Balance -580 ml -1600 ml 920 ml Physical Exam General: No acute distress Heart: Regular rate Abdomen: Normal bowel sounds Extremities: No cyanosis Skin: No breakdown Labs Labs: Laboratory Tests Test 09/15/21 17:04 09/15/21 21:16 09/16/21 04:05 09/16/21 07:17 Glucose (Fingerstick) 161 mg/dL (70-99) 155 mg/dL (70-99) 163 mg/dL (70-99) White Blood Count 8.3 x10^3/uL (4.0-11.0) Red Blood Count 3.83 x10^6/uL (4.30-5.70) Hemoglobin 10.0 g/dL (13.0-17.5) Hematocrit 30.8 % (39.0-53.0) Mean Corpuscular Volume 80 fL (79-100) Mean Corpuscular Hemoglobin 26 pg (25-35) Mean Corpuscular Hemoglobin Concent 33 g/dL (31-37) Red Cell Distribution Width 17.5 % (11.5-14.5) Platelet Count 288 x10^3/uL (140-400) Neutrophils (%) (Auto) 80 % (31-73) Lymphocytes (%) (Auto) 9 % (24-48) Monocytes (%) (Auto) 8 % (0-9) Eosinophils (%) (Auto) 3 % (0-3) Basophils (%) (Auto) 1 % (0-3) Neutrophils # (Auto) 6.7 x10^3/uL (1.8-7.7) Lymphocytes # (Auto) 0.7 x10^3/uL (1.0-4.8) Monocytes # (Auto) 0.7 x10^3/uL (0.0-1.1) Eosinophils # (Auto) 0.2 x10^3/uL (0.0-0.7) Basophils # (Auto) 0.0 x10^3/uL (0.0-0.2) Sodium Level 133 mmol/L (136-145) Potassium Level 3.6 mmol/L (3.5-5.1) Chloride Level 98 mmol/L (98-107) Carbon Dioxide Level 25 mmol/L (21-32) Anion Gap 10 (6-14) Blood Urea Nitrogen 44 mg/dL (8-26) Creatinine 3.5 mg/dL (0.7-1.3) Estimated GFR (Cockcroft-Gault) 17.2 Glucose Level 114 mg/dL (70-99) Calcium Level 8.3 mg/dL (8.5-10.1) Phosphorus Level 4.5 mg/dL (2.6-4.7) Magnesium Level 1.9 mg/dL (1.8-2.4) Creatine Kinase 765 U/L (39-308) Albumin 2.0 g/dL (3.4-5.0) Test 09/16/21 11:12 Glucose (Fingerstick) 124 mg/dL (70-99) Comment Review of Relevant I have reviewed the following items vincenzo (where applicable) has been applied. Justifications for Admission Other Justification Cellulitis FRED RAYMOND MD Sep 16, 2021 13:24
[2021-09-16 15:00] VITALS: BP 129/68
[2021-09-16 19:00] VITALS: BP 144/71
[2021-09-16] MEDS: FAMOTIDINE 20 MG TABLET. PO SCH (19:50)
[2021-09-16] MEDS: FLUTICASONE 50MCG/NASAL SPRAY 16GM BOTTLE. NS SCH (19:50)
[2021-09-16] MEDS: cefTRIAXone IV Push 1 GM VIAL. IVP SCH (19:52)
[2021-09-16 23:00] VITALS: BP 124/59
[2021-09-17 03:00] VITALS: BP 128/69
[2021-09-17] MEDS: LEVOTHYROXINE 75 MCG TABLET PO SCH (04:58)
[2021-09-17] MEDS: OLANZapine 2.5 MG TABLET PO PRN (04:58)
[2021-09-17] MEDS: HEPARIN for SUB-Q USE 5,000 UNIT/ML VIAL. SQ SCH (05:01)
[2021-09-17 07:00] VITALS: BP 158/74
[2021-09-17 08:03] LABS: HEMOGLOBIN 10.9 g/dL (13.0-17.5); RED BLOOD COUNT 4.07 x10^6/uL (4.30-5.70); RED CELL DISTRIBUTION WIDTH 17.7 % (11.5-14.5); WHITE BLOOD COUNT 7.6 x10^3/uL (4.0-11.0)
[2021-09-17] MEDS: LACTOBACILLUS RHAMNOSUS GG 1 CAPSULE. PO SCH (08:09)
[2021-09-17] MEDS: DOXYCYCLINE HYCLATE 100 MG in IV DEXTROSE 5% 100ML 100 ML IV SCH (08:09)
[2021-09-17] MEDS: SENNOSIDES/DOCUSATE 8.6/50MG TABLET. PO SCH (08:10)
[2021-09-17] MEDS: CHOLECALCIFEROL (VITAMIN D3) 1,000 UNIT TABLET PO SCH (08:10)
[2021-09-17] MEDS: ASPIRIN ENTERIC COATED 81 MG TABLET.DR. PO SCH (08:10)
[2021-09-17] MEDS: busPIRone 10 MG TABLET. PO SCH (08:10)
[2021-09-17] MEDS: CYANOCOBALAMIN (VITAMIN B-12) 100 MCG TABLET. PO SCH (08:11)
[2021-09-17] MEDS: FUROSEMIDE 20 MG/2 ML VIAL. IVP SCH (08:11)
[2021-09-17] MEDS: TRIAMCINOLONE ACETONIDE 0.5% TOPICAL CREAM 15GM TUBE. TP SCH (08:21)
[2021-09-17 08:30] LABS: ALBUMIN 2.3 g/dL (3.4-5.0); CALCIUM 8.8 mg/dL (8.5-10.1); CREATININE 3.1 mg/dL (0.7-1.3); GFR 19.8
[2021-09-17 08:31] LABS: PHOSPHORUS 4.1 mg/dL (2.6-4.7); POTASSIUM 3.6 mmol/L (3.5-5.1)
[2021-09-17 08:37] LABS: ALBUMIN 2.3 g/dL (3.4-5.0); DIRECT BILIRUBIN 0.2 mg/dL (0.0-0.2); TOTAL BILIRUBIN 0.4 mg/dL (0.2-1.0); TOTAL PROTEIN 5.8 g/dL (6.4-8.2)
--- NOTE | 2021-09-17 10:34 | PDOC ---
Date of Service: DATE: 09/17/21 TIME: 10:28 Subjective: Subjective: Really likes eating fruits and raw vegetables right out of the ground. No GI complaints. Wants to go home. Wishes his legs were stronger. He'd like to get Herman Slatre and Anthony Simon together and have them invent a body transplant for when people get old. Objective: Vital Signs: Vital Signs Date Time Temp Pulse Resp B/P (MAP) Pulse Ox O2 Delivery O2 Flow Rate FiO2 09/17/21 08:10 74 128/69 09/17/21 07:00 97.7 17 99 Room Air 97.7 Labs: Laboratory Tests Test 09/16/21 11:12 09/16/21 17:10 09/16/21 20:46 09/17/21 06:40 Glucose (Fingerstick) 124 mg/dL 134 mg/dL 129 mg/dL White Blood Count 7.6 x10^3/uL Red Blood Count 4.07 x10^6/uL Hemoglobin 10.9 g/dL Hematocrit 33.0 % Mean Corpuscular Volume 81 fL Mean Corpuscular Hemoglobin 27 pg Mean Corpuscular Hemoglobin Concent 33 g/dL Red Cell Distribution Width 17.7 % Platelet Count 388 x10^3/uL Sodium Level 135 mmol/L Potassium Level 3.6 mmol/L Chloride Level 98 mmol/L Carbon Dioxide Level 27 mmol/L Anion Gap 10 Blood Urea Nitrogen 37 mg/dL Creatinine 3.1 mg/dL Estimated GFR (Cockcroft-Gault) 19.8 Glucose Level 116 mg/dL Calcium Level 8.8 mg/dL Phosphorus Level 4.1 mg/dL Magnesium Level 1.8 mg/dL Total Bilirubin 0.4 mg/dL Direct Bilirubin 0.2 mg/dL Aspartate Amino Transf (AST/SGOT) 83 U/L Alanine Aminotransferase (ALT/SGPT) 102 U/L Alkaline Phosphatase 276 U/L Creatine Kinase 410 U/L Total Protein 5.8 g/dL Albumin 2.3 g/dL PE: GEN: NAD, enthusiastically eating grapes LUNGS: CTAB HEART: RRR ABD: S/ND/NT EXTREMITY/SKIN: LLE erythema NEURO/PSYCH: A & O 3 A/P: Abnormal LFTs - viral Hep negative, US unrevealing - primary liver issue doubtful, better except Alk Phos fluctuating YOGESH , h/o heartburn and constipation - controlled Cellulitis, A Fib, WILLY/CKD, elevated CK -- Continue same per GI, plan for outpt scopes. Justicifation of Admission Dx: Justifications for Admission: Justification of Admission Dx: Yes ARMIDA HAMILTON Sep 17, 2021 10:34
[2021-09-17 11:00] VITALS: BP 137/55
[2021-09-17] MEDS ORDERED: ROPI1TAB4 PO (11:44)
[2021-09-17] MEDS ORDERED: DILT240C33 PO (11:44)
[2021-09-17] MEDS ORDERED: ASPI-886 PO (11:44)
[2021-09-17] MEDS ORDERED: CEFD300C PO (11:44)
[2021-09-17] MEDS ORDERED: APIX5TAB PO (11:44)
[2021-09-17] MEDS ORDERED: LEVO75TA5 PO (11:44)
[2021-09-17] MEDS ORDERED: DOXY100T PO (11:44)
[2021-09-17] MEDS ORDERED: BUSP10TA PO (11:44)
[2021-09-17] MEDS: rOPINIRole 1 MG TABLET. PO SCH (12:21)
--- NOTE | 2021-09-17 12:29 | SNU/HH DC ---
DISCHARGE WITH HOME HEALTH DISCHARGE INFORMATION: Discharge Date: Sep 17, 2021 Final Diagnosis: Renail Failure, Cellulitis Condition on Discharge: Stable CODE STATUS: Code Status: Full HOME HEALTH: Face to Face: I certify this patient is under my care and that I, or a nurse practitioner or physician's property management assistant working with me, had a face to face encounter that meets the physician face to face encounter requirements with this patient on []. Prison For: Assess Cardiopulm Status, Assess & Educate Safety, Assess/Skilled Observatio RN For Eval/Treatment: Yes Physical Therapy For: Evalulation/Treatment Occupational Therapy For: Evaluation/Treatment Pt Meets Homebound Status: Unsteady balance w/ amb,, Extreme weakness w/ amb. POST DISCHARGE ORDERS: Activity Instructions for Disc: Activity as tolerated Weight Bearing Status after Di: As tolerated DIET AFTER DISCHARGE: Regular CHECKS AFTER DISCHARGE: Checks after discharge: Check blood press - daily, Check your Temp as needed FOLLOW-UP: PCP to follow Home Health: Patient need to see PCP at [facility] within 1 Week. Ideally repeat labs at that visit too. TREATMENT/EQUIPMENT ORDERS: Adaptive Equipment Issued: [place] CERTIFICATION STATEMENT: Certification Statement: Certification Statement: Based on the above finding, I certify that this patient is confined to the home and needs intermittent shelter care, physical therapy and/or speech therapy, or continues to need occupational therapy.~ This patient is under my care, and I have initiated the establishment of the plan of care.~ This patient will be followed by myself or a community physician who will periodically review the plan of care. Home Meds Active Scripts Buspirone Hcl (BUSPIRONE HCL) 10 Mg Tablet, 10 MG PO BID for Aniety for 60 Days, #120 TAB Prov:FRED RAYMOND MD 09/17/21 Ropinirole Hcl (ROPINIROLE HCL) 1 Mg Tablet, 2 MG PO TID for RLS for 60 Days, #360 TAB Prov:FRED RAYMOND MD 09/17/21 Levothyroxine Sodium (LEVOTHYROXINE SODIUM) 75 Mcg Tablet, 75 MCG PO DAILY06 for Hypothyroids for 60 Days, #60 TAB Prov:FRED RAYMOND MD 09/17/21 Aspirin (ASPIRIN EC) 81 Mg Tablet.dr 81 MG PO DAILYWBKFT for CAD for 60 Days, #60 TAB.SR Prov:FRED RAYMOND MD 09/17/21 Diltiazem HCl (Diltiazem 24Hr Cd) 240 Mg Cap.er.24h, 240 MG PO DAILY for Htn for 60 Days, #60 CAP.SR Prov:FRED RAYMOND MD 09/17/21 Apixaban (ELIQUIS) 5 Mg Tablet, 5 MG PO BID for Afib for 60 Days, #120 TAB Prov:FRED RAYMOND MD 09/17/21 Doxycycline Hyclate (DOXYCYCLINE HYCLATE) 100 Mg Tablet, 100 MG PO BID for Infection for 5 Days, #10 TAB Prov:FRED RAYMOND MD 09/17/21 Cefdinir (CEFDINIR) 300 Mg Capsule, 300 MG PO BID for Infection for 5 Days, #10 CAP Prov:FRED RAYMOND MD 09/17/21 Cyclobenzaprine Hcl (CYCLOBENZAPRINE HCL) 10 Mg Tablet, 1 TAB PO TID PRN for MUSCLE PAIN, #30 TAB Prov:ELEAZAR JORDAN DO 10/17/16 Discontinued Scripts Naproxen (NAPROXEN) 500 Mg Tablet, 1 TAB PO BID PRN for PAIN, #30 TAB 1 Refill Prov:ELEAZAR JORDAN DO 10/17/16 FRED RAYMOND MD Sep 17, 2021 12:29
--- NOTE | 2021-09-17 14:14 | PDOC ---
DATE OF SERVICE DATE: 09/17/21 TIME: 14:10 SUBJECTIVE ROS No complaints , sitting in chair OBJECTIVE Vital Signs Vital Signs Date Time Temp Pulse Resp B/P (MAP) Pulse Ox O2 Delivery O2 Flow Rate FiO2 09/17/21 11:00 98.2 89 17 137/55 (82) 97 Room Air 98.2 I & 0 Intake and Output 09/17/21 07:00 Intake Total 1520 ml Output Total 6900 ml Balance -5380 ml Intake Oral 1520 ml Output Urine Total 6900 ml PHYSICAL EXAM Physical Exam GEN: Awake, Oriented x 3, In no distress EYES: Vision Unchanged, Conjunctiva Normal EN: No EN Drainage, Mucous Membranes moist NECK: no JVD, no JVP, Supple, no Thyromegaly CVS: S1S2, no Murmur, No Gallop, Edema Left L Ext +, None in right RESP: no Rales, no Rhonchi,no Acc. Muscle Use GI: BS + ve, NO Bruit, Non Tender, Non Distended : no CVA tenderness, no Suprapubic Tenderness, [place] + DIAGNOSIS/ASSESSMENT Assessment & Plan WILLY/ATN with possible interstitial nephritis Polyuric currently , Monitor Creat trending down 4.6-->3.1 , E-Lytes stable, supportive care, strict I/O, avoid Nephrotoxins . CKD stage III Suspect baseline Cr 2.0 Iron deficiency ANEMIA; defer to primary FALL AT HOME: CPK noted to be approximately 4000 on arrival, now trending downwards. Continue IV fluids Known history of CAD - WITH INCREASED TROPONIN LEVELS. Cardiology following. EF normal at this time. Titrate down Lasix/switch to PO - he is Polyuric . Defer to cardiology Elevated LFTs will be deferred to primary team/consider GI consultation. May be associated with elevated CPK COMMENT/RELEVANT DATA Meds Current Medications Medications (Trade) Dose Ordered Sig/Lisa Start Time Stop Time Status Last Admin Dose Admin Acetaminophen (Tylenol) 1,000 mg PRN Q6HRS PRN 09/12/21 22:45 Albuterol Sulfate (Ventolin Neb Soln) 2.5 mg PRN Q6HRS PRN 09/12/21 23:00 09/15/21 04:27 2.5 MG Apixaban (Eliquis) 5 mg BID 09/17/21 21:00 Aspirin (Ecotrin) 81 mg DAILYWBKFT 09/13/21 12:30 09/17/21 08:10 81 MG Buspirone HCl (Buspar) 10 mg BID 09/13/21 09:00 09/17/21 08:10 10 MG Cefdinir (Omnicef) 300 mg BID 09/17/21 21:00 Ceftriaxone Sodium (Rocephin) 1 gm Q24H 09/12/21 21:00 09/17/21 11:21 DC 09/16/21 19:52 1 GM Cyanocobalamin (Vitamin B-12) 200 mcg DAILY 09/13/21 09:00 09/17/21 08:11 200 MCG Diltiazem HCl (Cardizem 24hr Cd) 240 mg DAILY 09/13/21 09:00 09/17/21 08:10 240 MG Doxycycline Hyclate (Vibra-Tab) 100 mg BID 09/17/21 21:00 Doxycycline Hyclate 100 mg/ Dextrose 100 ml @ 50 mls/hr Q12HR 09/12/21 21:00 09/17/21 11:21 DC 09/17/21 08:09 50 MLS/HR Famotidine (Pepcid) 20 mg QHS 09/13/21 21:00 09/16/21 19:50 20 MG Fentanyl Citrate (Fentanyl 2ml Vial) 25 mcg PRN Q3HRS PRN 09/12/21 20:15 09/15/21 00:33 25 MCG Fluticasone Propionate (Flonase) 2 spray QHS 09/13/21 21:00 09/16/21 19:50 2 SPRAY Furosemide (Lasix) 20 mg [id number] 09/13/21 14:00 09/17/21 08:11 20 MG Heparin Sodium (Porcine) (Heparin Sodium) 5,000 unit Q8HRS 09/12/21 22:00 09/17/21 11:23 DC 09/17/21 05:01 5,000 UNIT Influenza Virus Vaccine Quadrival (Flulaval Quad [id number] Syringe) 0.5 ml ONCE ONCE 09/16/21 09:00 09/16/21 09:01 DC 09/16/21 15:17 0.5 ML Lactobacillus Rhamnosus (Culturelle) 1 cap BID 09/13/21 09:00 09/17/21 08:09 1 CAP Levothyroxine Sodium (Synthroid) 75 mcg DAILY06 09/13/21 06:00 09/17/21 04:58 75 MCG Magnesium Sulfate 50 ml @ 25 mls/hr PRN DAILY PRN 09/15/21 13:15 Olanzapine (ZyPREXA) 2.5 mg PRN DAILY PRN 09/14/21 23:00 09/17/21 04:58 2.5 MG Ondansetron HCl (Zofran) 4 mg PRN Q6HRS PRN 09/12/21 22:45 Ropinirole HCl (Requip) 2 mg TID ONCE 09/12/21 23:04 09/12/21 23:05 DC 09/12/21 23:04 2 MG Senna/Docusate Sodium (Senna Plus) 1 tab BID 09/13/21 09:00 09/17/21 08:10 1 TAB Sodium Chloride 1,000 ml @ 75 mls/hr [id number] 09/13/21 11:30 09/16/21 20:04 75 MLS/HR Tramadol HCl (Ultram) 50 mg PRN Q6HRS PRN 09/12/21 20:15 09/16/21 19:52 50 MG Triamcinolone Acetonide (Kenalog 0.5%) 1 wood BID 09/13/21 09:00 09/17/21 08:21 1 WOOD Vitamin D (Vitamin D3) 1,000 unit DAILY 09/13/21 09:00 09/17/21 08:10 1,000 UNIT Lab Laboratory Tests Test 09/16/21 17:10 09/16/21 20:46 09/17/21 06:40 09/17/21 11:43 Glucose (Fingerstick) 134 mg/dL (70-99) 129 mg/dL (70-99) 190 mg/dL (70-99) White Blood Count 7.6 x10^3/uL (4.0-11.0) Red Blood Count 4.07 x10^6/uL (4.30-5.70) Hemoglobin 10.9 g/dL (13.0-17.5) Hematocrit 33.0 % (39.0-53.0) Mean Corpuscular Volume 81 fL (79-100) Mean Corpuscular Hemoglobin 27 pg (25-35) Mean Corpuscular Hemoglobin Concent 33 g/dL (31-37) Red Cell Distribution Width 17.7 % (11.5-14.5) Platelet Count 388 x10^3/uL (140-400) Sodium Level 135 mmol/L (136-145) Potassium Level 3.6 mmol/L (3.5-5.1) Chloride Level 98 mmol/L (98-107) Carbon Dioxide Level 27 mmol/L (21-32) Anion Gap 10 (6-14) Blood Urea Nitrogen 37 mg/dL (8-26) Creatinine 3.1 mg/dL (0.7-1.3) Estimated GFR (Cockcroft-Gault) 19.8 Glucose Level 116 mg/dL (70-99) Calcium Level 8.8 mg/dL (8.5-10.1) Phosphorus Level 4.1 mg/dL (2.6-4.7) Magnesium Level 1.8 mg/dL (1.8-2.4) Total Bilirubin 0.4 mg/dL (0.2-1.0) Direct Bilirubin 0.2 mg/dL (0.0-0.2) Aspartate Amino Transf (AST/SGOT) 83 U/L (15-37) Alanine Aminotransferase (ALT/SGPT) 102 U/L (16-63) Alkaline Phosphatase 276 U/L (46-116) Creatine Kinase 410 U/L (39-308) Total Protein 5.8 g/dL (6.4-8.2) Albumin 2.3 g/dL (3.4-5.0) Results All relevant outside records, renal labs, imaging studies, telemetry/EKG's were reviewed. Justicifation of Admission Dx: Justifications for Admission: Justification of Admission Dx: Yes JAJA WESTBROOK MD Sep 17, 2021 14:14
[2021-09-17 15:00] VITALS: BP 112/67
--- NOTE | 2021-09-17 15:03 | PDOC ---
KEANU KRAMER LACER AND TIER 09/17/21 1503: CARDIO Progress Notes Date and Time Date of Service 09/17/2021 Time of Evaluation 1050 Subjective Subjective: No Chest Pain, No shortness of breath, No Palpitations Vitals Vitals Vital Signs Date Time Temp Pulse Resp B/P (MAP) Pulse Ox O2 Delivery O2 Flow Rate FiO2 09/17/21 11:00 98.2 89 17 137/55 (82) 97 Room Air 98.2 Weight Weight [ ] Input and Output Intake and Output Intake and Output 09/17/21 07:00 Intake Total 1520 ml Output Total 6900 ml Balance -5380 ml Intake Oral 1520 ml Output Urine Total 6900 ml Laboratory Labs Laboratory Tests Test 09/16/21 17:10 09/16/21 20:46 09/17/21 06:40 09/17/21 11:43 Glucose (Fingerstick) 134 mg/dL (70-99) 129 mg/dL (70-99) 190 mg/dL (70-99) White Blood Count 7.6 x10^3/uL (4.0-11.0) Red Blood Count 4.07 x10^6/uL (4.30-5.70) Hemoglobin 10.9 g/dL (13.0-17.5) Hematocrit 33.0 % (39.0-53.0) Mean Corpuscular Volume 81 fL (79-100) Mean Corpuscular Hemoglobin 27 pg (25-35) Mean Corpuscular Hemoglobin Concent 33 g/dL (31-37) Red Cell Distribution Width 17.7 % (11.5-14.5) Platelet Count 388 x10^3/uL (140-400) Sodium Level 135 mmol/L (136-145) Potassium Level 3.6 mmol/L (3.5-5.1) Chloride Level 98 mmol/L (98-107) Carbon Dioxide Level 27 mmol/L (21-32) Anion Gap 10 (6-14) Blood Urea Nitrogen 37 mg/dL (8-26) Creatinine 3.1 mg/dL (0.7-1.3) Estimated GFR (Cockcroft-Gault) 19.8 Glucose Level 116 mg/dL (70-99) Calcium Level 8.8 mg/dL (8.5-10.1) Phosphorus Level 4.1 mg/dL (2.6-4.7) Magnesium Level 1.8 mg/dL (1.8-2.4) Total Bilirubin 0.4 mg/dL (0.2-1.0) Direct Bilirubin 0.2 mg/dL (0.0-0.2) Aspartate Amino Transf (AST/SGOT) 83 U/L (15-37) Alanine Aminotransferase (ALT/SGPT) 102 U/L (16-63) Alkaline Phosphatase 276 U/L (46-116) Creatine Kinase 410 U/L (39-308) Total Protein 5.8 g/dL (6.4-8.2) Albumin 2.3 g/dL (3.4-5.0) Physical Exam HEENT: Neck Supple W Full Motion Chest: Symmetric LUNGS: Other (diminished bases) Heart: irregularly irregular (AFIB, rate controlled ) Abdomen: Other (protuberant) Extremities: Other (LLE cellulitis) Neurology: alert, oriented, follow commands Assessment Assessment 1. Weakness 2. Sepsis with LLE cellulitis 3. Mild troponin elevation; high sensitivity highest 497. Most probably type II, demand ischemia. CP free now normalized 4. Severe WILLY on CKD; Cr better at 3.1. Good UOP 5. Mild acute diastolic CHF secondary to IV hydration, appears compensated. Echo with preserved LV systolic function 6. CAD noted on chest CTA. Denies prior LHC. 7. Persistent AFIB; previous ablation. rate controlled on Cardizem. Follows with [place] cardiology, Dr. Henry 8. Hypertension; controlled 9. Hyperlipidemia 10. Elevated LFTs 11. Hypothyroidism 12. Elevated d-dimer; CTA negative for PE Recommendations Cardizem for rate control ASA therapy. Eliquis for stroke prophylaxis upon discharge Low-dose diuretic therapy, defer to nephrology Avoid nephrotoxins, monitor renal function No statin with elevated LFTs Ongoing antibiotic therapy, treatment of LLE cellulitis Outpatient ischemic evaluation Consider outpatient referral for LAAO Supportive care He would like to continue to follow up with Dr. Herny Justicifation of Admission Dx: Justifications for Admission: Justification of Admission Dx: Yes RICHARDSON CROCKETT MD 09/17/212027: CARDIO Progress Notes Plan Plan Patient seen and examined. Agree with above nurse practitioner note. Left lower extremity cellulitis is much improved. Okay to discharge from a cardiovascular standpoint with close follow-up. KEANU KRAMER APRN Sep 17, 2021 15:03 RICHARDSON CROCKETT MD Sep 17, 2021 20:28
--- NOTE | 2021-09-17 16:25 | NUR ---
DISCHARGE INSTRUCTIONS GIVEN, QUESTIONS AND CONCERNS ANSWERED, PATIENT VERBALIZED UNDERSTANDING OF DISCHARGE INFORMATION INCLUDING TAKING ALL MEDICATIONS INSTRUCTED AND FOLLOWING UP WITH HIS PRIMARY PROVIDER IN 1-2 WEEKS WELL OTHER CONSULTS. PATIENT INFORMAED THAT [facility] WOULD FOLLOW HIS CARE IN THE HOME AND SHOULD NOTIFY HIM W/I 24 HRS.
--- NOTE | 2021-09-17 17:15 | NUR ---
PATIENT LEAVES TH UNIT PER W/C AND ACCOMPANIED BY INDUSTRIAL SALES REPRESENTATIVE, EMOTIONAL SUPPORT GIVEN, FOLLOW UP APPOINTMENTS ENCOURAGED.
[2021-09-17] MEDS ORDERED: DOXYCYCLINE HYCLATE 100 MG TABLET PO SCH (21:00)
[2021-09-17] MEDS ORDERED: APIXABAN 5 MG TABLET. PO SCH (21:00)
[2021-09-17] MEDS ORDERED: CEFDINIR 300 MG CAPSULE PO SCH (21:00)
--- NOTE | 2021-09-18 08:29 | PDOC3 ---
[facility]-Discharge Summary Date of Admission: Date of Admission: Sep 12, 2021 Date of Discharge: Date of Discharge: Sep 17, 2021 Admission Diagnosis: Problems: (1) Left leg cellulitis Discharge Diagnosis: Discharge Diagnosis: Same Hospital Course: Hospital Course: hief Complaint Fall at home - with weakness. PT/OT for ADLs, may need skilled services on d/c Sepsis - was present prior to admission. Cont antibiotics LLE cellulitis - likely related to traumatic fall, no evidence of acute fracture or dislocation on tib-fib x-ray of his left lower extremity, cont antibiotics, will change to rocephin, doxycycline WILLY on CKD - baseline Cr ~2, now 4.3. Follow nephrology j2ee consultant recommendations Transaminitis - large transaminase elevation, not in shock, will monitor trend, check hepatitis serologies, TSH, iron, ferritin Troponin elevation - HS trop peaked at 497, likely demand ischemia follow recommendations from j2ee consultant Mild acute probable diastolic CHF secondary to IV hydration fluid overload, diuresis as per j2ee consultant WILLY/ATN with possible interstitial nephritis Triple vessel disease CAD - on chest CTA. sees Dr. Henry at [facility] AFIB - s/p ablation. is permanent, rate controlled on Cardizem. Xarelto for stroke prophylaxis. Follow with [place] cardiology, Dr. Henry Hypertension - cont home meds Hyperlipidemia - statin Hypothyroidism - on levothyroxine DM2 - sliding scale insulin Severe protein calorie malnutrition - due to infection, will have agricultural engineering technicians to see FEN - cardiac diet PPX - xarelto FULL CODE Dispo -patient will likely need home health services moving forward. We will c ontinue to monitor on a daily basis and follow recommendations from physical therapy for final disposition follow recs from consultants History of Present Illness History of Present Illness Mr Lozano is a 75yo male [place] with PMHx atrial fibrillation, hypertension, hyperlipidemia, type 2 diabetes mellitus, coronary artery disease, hypothyroidism, and generalized osteoarthritis who presented to [facility] in [place] on 09/10/2021 after he was doing poorly having difficulty walking at home even with walker and he [facility] and was able to crawl to the couch contact EMS to be brought to the hospital. He thinks the day prior 09/09/2021 he was diagnosed with pneumonia at the [facility], he in itially requested to go to [facility] but was diverted to [facility] due to high volume at [facility]. There he noted a week of progressive weakness and shortness of breath. He had CTPA which showed that there is no evidence of acute or chronic pulmonary emboli. There is bronchial wall thickening compatible with nonspecific bronchitis. There are at least 2-4 mm solid noncalcified pulmonary nodules, cardiomegaly with 3-vessel coronary vascular calcification. EKG was afib. WBC 24.6, Hb 14.7, platelets 281 NA 132, K3.5, BUN 25, CR 2.3, glucose 172, bilirubin 1.3, AST 340, ALT 76, alk phos 118, high-sensitivity troponin I 46, TSH 3, COVID-19 PCR negative Was admitted with sepsis, treated aggressively with IV fluid, started on meropenem and vancomycin. Over the course of 3 days troponin peaked at 4 9711 9 lactic acid peaked at 4.1 on 11 , 1110 AST 77 ALT 150 albumin 2, level 11 NA 120 7K3.8, BUN 47, CR 4.3 vancomycin trough 26.2. Given his elevated troponin, cardiology was consulted at [facility]. Given his worsening renal function is called [facility] for consideration of nephrology consultation. Seen bedside patient notes that before his initial admission at [facility] he was doing much worse than he currently is but he still can't walk on his own, thinks his left leg looks be 09/13/2021 No acute events reported overnight, case discussed with nursing staff patient in no acute distress no complaints during my visit Still complaining of left leg discomfort but greatly improved. Reassurance provided Reassess in the a.m. Follow recommendations from consultants 09/14/2021 No acute events reported overnight, case discussed with nursing staff patient in no acute distress no complaints during my visit 09/15/2021 His left lower extremity seems much improved. Patient quite anxious to know what the next step will be. Reassurance has been provided and the plan of care explained in detail. No acute events reported overnight Discussed with nursing staff 09/16 Patient evaluated and examined at bedside. Lower extremity continues to improve. Creatinine slowly trending down. Continue to monitor this daily. Continue antibiotics. If creatinine continues to improve can likely discharge soon. But patient will require SNF placement. 09/17 Patient evaluated examined at bedside. Cellulitis notably improved. Creatinine trending down. Advised to follow-up with PCP. Patient refusing SNF placement wants home health. Okay for discharge today. I spent greater than 35 minutes on the discharge of this patient. Disposition: Disposition/Orders: D/C to Home w/ HH Activity: Activity: Resume previous activity Diet: Diet: Renal Medications: Home Meds Active Scripts Buspirone Hcl (BUSPIRONE HCL) 10 Mg Tablet, 10 MG PO BID for Aniety for 60 Days, #120 TAB Prov:FRED RAYMOND MD 09/17/21 Ropinirole Hcl (ROPINIROLE HCL) 1 Mg Tablet, 2 MG PO TID for RLS for 60 Days, #360 TAB Prov:FRED RAYMOND MD 09/17/21 Levothyroxine Sodium (LEVOTHYROXINE SODIUM) 75 Mcg Tablet, 75 MCG PO DAILY06 for Hypothyroids for 60 Days, #60 TAB Prov:FRED RAYMOND MD 09/17/21 Aspirin (ASPIRIN EC) 81 Mg Tablet.dr, 81 MG PO DAILYWBKFT for CAD for 60 Days, #60 TAB.SR Prov:FRED RAYMOND MD 09/17/21 Diltiazem HCl (Diltiazem 24Hr Cd) 240 Mg Cap.er.24h, 240 MG PO DAILY for Htn for 60 Days, #60 CAP.SR Prov:FRED RAYMOND MD 09/17/21 Apixaban (ELIQUIS) 5 Mg Tablet, 5 MG PO BID for Afib for 60 Days, #120 TAB Prov:FRED RAYMOND MD 09/17/21 Doxycycline Hyclate (DOXYCYCLINE HYCLATE) 100 Mg Tablet, 100 MG PO BID for Infection for 5 Days, #10 TAB Prov:FRED RAYMOND MD 09/17/21 Cefdinir (CEFDINIR) 300 Mg Capsule, 300 MG PO BID for Infection for 5 Days, #10 CAP Prov:FRED RAYMOND MD 09/17/21 Cyclobenzaprine Hcl (CYCLOBENZAPRINE HCL) 10 Mg Tablet, 1 TAB PO TID PRN for MUSCLE PAIN, #30 TAB Prov:ELEAZAR JORDAN DO 10/17/16 Discontinued Scripts Naproxen (NAPROXEN) 500 Mg Tablet, 1 TAB PO BID PRN for PAIN, #30 TAB 1 Refill Prov:ELEAZAR JORDAN DO 10/17/16 Scheduled Apixaban (Eliquis), 5 MG PO BID Aspirin (Aspirin Ec), 81 MG PO DAILYWBKFT Buspirone Hcl (Buspirone Hcl), 10 MG PO BID Cefdinir (Cefdinir), 300 MG PO BID Diltiazem HCl (Diltiazem 24Hr Cd), 240 MG PO DAILY Doxycycline Hyclate (Doxycycline Hyclate), 100 MG PO BID Levothyroxine Sodium (Levothyroxine Sodium), 75 MCG PO DAILY06 Ropinirole Hcl (Ropinirole Hcl), 2 MG PO TID Scheduled PRN Cyclobenzaprine Hcl (Cyclobenzaprine Hcl), 1 TAB PO TID PRN for MUSCLE PAIN Discontinued Medications Naproxen (Naproxen), 1 TAB PO BID PRN for PAIN Justicifation of Admission Dx: Justifications for Admission: Justification of Admission Dx: Yes FRED RAYMOND MD Sep 18, 2021 08:29
== END 2021-09-17 17:15 | disposition home health service (06) | DRG 871 ==
LOC: 5 NORTH 18:15
PROVIDERS: ADMIT Internal Medicine; ATTEND Internal Medicine
DX: A41.9 Sepsis, unspecified organism (principal); E43 Unspecified severe protein-calorie malnutrition; I50.31 Acute diastolic (congestive) heart failure; N17.0 Acute kidney failure with tubular necrosis; I13.0 Hypertensive heart and chronic kidney disease with heart failure and stage 1 through stage 4 chronic kidney disease, or unspecified chronic kidney disease; I48.19 Other persistent atrial fibrillation; L03.116 Cellulitis of left lower limb; E03.9 Hypothyroidism, unspecified; E11.22 Type 2 diabetes mellitus with diabetic chronic kidney disease; E78.5 Hyperlipidemia, unspecified; I25.10 Atherosclerotic heart disease of native coronary artery without angina pectoris; M15.9 Polyosteoarthritis, unspecified; N18.30 Chronic kidney disease, stage 3 unspecified; Z20.822 Contact with and (suspected) exposure to COVID-19; R74.01 Elevation of levels of liver transaminase levels; K59.09 Other constipation; R79.89 Other specified abnormal findings of blood chemistry; I34.0 Nonrheumatic mitral (valve) insufficiency; Z79.01 Long term (current) use of anticoagulants; Z82.49 Family history of ischemic heart disease and other diseases of the circulatory system; Z83.3 Family history of diabetes mellitus; Z88.0 Allergy status to penicillin; Z68.34 Body mass index [BMI] 34.0-34.9, adult
CPT/HCPCS: 36415; 71045; 73590; 76705; 76770; 80048; 80053; 80061; 80069; 80076; 81001; 82436; 82550; 82607; 82728; 82962; 83540; 83550; 83735; 83874; 83930; 83935; 84133; 84300; 84443; 84484; 85025; 85027; 86705; 86709; 86803; 87340; 90471; 90686; 93306; 94640; J0696; J1644; J1940; J3010; J3490; J7030; J7060; 97530-GP; 97535-GO; G0378; J7613

== ENCOUNTER 2021-09-17 19:47 | Inpatient (IN) | payer OTHER ==
[~2021-09-17] VITALS: Ht 185.4 cm; Wt 115.0 kg
[~2021-09-17 19:47] MED LIST changes: +APIX5TAB PO; +ASPI-886 PO; +BUSP10TA PO; +CEFD300C PO; +DILT240C33 PO; +DOXY100T PO; +LEVO75TA5 PO; +ROPI1TAB4 PO
--- NOTE | 2021-09-17 20:33 | ED.ADGEN ---
Past Medical History Past Medical History: A-Fib, Diabetes-Type II Additional Past Medical Histor: PARKINSONS, PT POOR HISTORIAN Past Surgical History: Tonsillectomy Additional Past Surgical Histo: HEART ABLATION Smoking Status: Former Smoker Alcohol Use: Occasionally Drug Use: None General Adult EDM: Chief Complaint: LOWER EXT PAIN HPI: HPI: Patient is a 75 year old male coming in via EMS for right leg cellulitis. Patient was discharged this morning from this facility after a 5-day hospital stay for sepsis secondary to cellulitis on his left lower extremity and type II NSTEMI. Patient went home but was not able to get his prescriptions filled and feels like his leg is getting worse, he states the swelling is worse that he is is able to stand on it. Patient does not have anybody to help him get his medications. [facility] 5 days ago due to the facility being full. Patient is somewhat confused. Review of Systems: Review of Systems: All other systems within normal limits except for as noted in the HPI Allergies: Allergies: Allergies Coded Allergies Type Severity Reaction Last Updated Verified Penicillins Allergy Intermediate 09/12/21 Yes Physical Exam: PE: Constitutional: Well developed, well nourished, no acute distress, non-toxic appearance. [] HENT: Normocephalic, atraumatic, bilateral external ears normal, nose normal. [] Eyes: PERRLA, conjunctiva normal, no discharge. [] Neck: No rigidity, supple, no stridor. [] Cardiovascular: Regular rate and rhythm, brisk cap refill [] Lungs & Thorax: Non labored symmetric respirations, no tachypnea or respiratory distress [] Abdomen: Soft, nondistended. Skin: Warm, dry, no erythema, no rash. Cellulitis on left lower extremity[] Back: Unremarkable Extremities: No deformities, range of motion grossly intact, left lower extremity] Neurologic: Alert and oriented X 3, no focal deficits noted. [] Psychologic: Affect normal, judgement normal, mood normal. [] Current Patient Data: Labs: Laboratory Tests Test 09/17/21 20:20 09/17/21 20:36 Urine Collection Type Unknown Urine Color Yellow Urine Clarity Clear Urine pH 5.5 (<5.0-8.0) Urine Specific [place] 1.015 (1.000-1.030) Urine Protein Negative mg/dL (NEG-TRACE) Urine Glucose (UA) 500 mg/dL (NEG) Urine Ketones (Stick) Negative mg/dL (NEG) Urine Blood Moderate (NEG) Urine Nitrite Negative (NEG) Urine Bilirubin Negative (NEG) Urine Urobilinogen Dipstick 0.2 mg/dL (0.2 mg/dL) Urine Leukocyte Esterase Trace (NEG) Urine RBC 11-20 /HPF (0-2) Urine WBC 11-20 /HPF (0-4) Urine Squamous Epithelial Cells Few /LPF Urine Bacteria 0 /HPF (0-FEW) Urine Mucus Slight /LPF White Blood Count 8.8 x10^3/uL (4.0-11.0) Red Blood Count 4.07 x10^6/uL (4.30-5.70) L Hemoglobin 11.1 g/dL (13.0-17.5) L Hematocrit 32.8 % (39.0-53.0) L Mean Corpuscular Volume 81 fL (79-100) Mean Corpuscular Hemoglobin 27 pg (25-35) Mean Corpuscular Hemoglobin Concent 34 g/dL (31-37) Red Cell Distribution Width 17.7 % (11.5-14.5) H Platelet Count 463 x10^3/uL (140-400) H Neutrophils (%) (Auto) 79 % (31-73) H Lymphocytes (%) (Auto) 9 % (24-48) L Monocytes (%) (Auto) 10 % (0-9) H Eosinophils (%) (Auto) 2 % (0-3) Basophils (%) (Auto) 0 % (0-3) Neutrophils # (Auto) 7.0 x10^3/uL (1.8-7.7) Lymphocytes # (Auto) 0.8 x10^3/uL (1.0-4.8) L Monocytes # (Auto) 0.8 x10^3/uL (0.0-1.1) Eosinophils # (Auto) 0.2 x10^3/uL (0.0-0.7) Basophils # (Auto) 0.0 x10^3/uL (0.0-0.2) Segmented Neutrophils % 75 % (35-66) H Band Neutrophils % 4 % (0-9) Lymphocytes % 7 % (24-48) L Monocytes % 10 % (0-10) Eosinophils % 2 % (0-5) Basophils % 1 % (0-3) Metamyelocytes % 1 % (0-0) H Platelet Estimate Increased (ADEQUATE) Anisocytosis Slight Sodium Level 133 mmol/L (136-145) L Potassium Level 3.9 mmol/L (3.5-5.1) Chloride Level 98 mmol/L (98-107) Carbon Dioxide Level 29 mmol/L (21-32) Anion Gap 6 (6-14) Blood Urea Nitrogen 34 mg/dL (8-26) H Creatinine 3.1 mg/dL (0.7-1.3) H Estimated GFR (Cockcroft-Gault) 19.8 BUN/Creatinine Ratio 11 (6-20) Glucose Level 180 mg/dL (70-99) H Calcium Level 9.1 mg/dL (8.5-10.1) Total Bilirubin 0.5 mg/dL (0.2-1.0) Aspartate Amino Transferase (AST) 81 U/L (15-37) H Alanine Aminotransferase (ALT) 106 U/L (16-63) H Alkaline Phosphatase 359 U/L (46-116) H Troponin I High Sensitivity 10 ng/L (4-75) Total Protein 7.0 g/dL (6.4-8.2) Albumin 2.6 g/dL (3.4-5.0) L Albumin/Globulin Ratio 0.6 (1.0-1.7) L Ethyl Alcohol Level < 10 mg/dL (0-10) Laboratory Tests 09/17/21 20:36 Laboratory Tests 09/17/21 20:36 Vital Signs: Vital Signs Date Time Temp Pulse Resp B/P (MAP) Pulse Ox O2 Delivery O2 Flow Rate FiO2 09/17/21 20:36 98.6 104 18 144/75 (98) 99 Room Air 98.6 EKG: EKG: [] Heart Score: C/O Chest Pain: No Risk Factors: Risk Factors: DM, Current or recent (<one month) smoker, HTN, HLP, family history of CAD, obesity. Risk Scores: Score 0 - 3: 2.5% MACE over next 6 weeks - Discharge Home Score 4 - 6: 20.3% MACE over next 6 weeks - Admit for Clinical Observation Score 7 - 10: 72.7% MACE over next 6 weeks - Early Invasive Strategies Radiology/Procedures: Radiology/Procedures: [] Course & Med Decision Making: Course & Med Decision Making Patient confused unable to care for himself. Discussed with hospitalist for worsening cellulitis patient possible new placement for rehab facility. Admitted to Dr. Belén Ware Disclaimer: Chaz Disclaimer: This electronic medical record was generated, in whole or in part, using a voice recognition dictation system. Departure Departure Impression: Primary Impression: AMS (altered mental status) Additional Impression: Left leg cellulitis Disposition: ADMITTED INPATIENT Admitting Physician: AGGIE Condition: STABLE Referrals: CONCEPCIÓN JENNINGS MD (PCP) Problem Qualifiers RAJENDRA NANCE MD Sep 17, 2021 20:33
[2021-09-17 20:45] LABS: BASO % 0 % (0-3); EOS # 0.2 x10^3/uL (0.0-0.7); EOS % 2 % (0-3); HEMATOCRIT 32.8 % (39.0-53.0); HEMOGLOBIN 11.1 g/dL (13.0-17.5); LYMPH # 0.8 x10^3/uL (1.0-4.8); LYMPH % 9 % (24-48); MEAN CORPUSCULAR HEMOGLOBIN 27 pg (25-35); MEAN CORPUSCULAR HGB CONC 34 g/dL (31-37); MEAN CORPUSCULAR VOLUME 81 fL (79-100); MONO # 0.8 x10^3/uL (0.0-1.1); MONO % 10 % (0-9); NEUT % 79 % (31-73); PLATELET COUNT 463 x10^3/uL (140-400); RED BLOOD COUNT 4.07 x10^6/uL (4.30-5.70); RED CELL DISTRIBUTION WIDTH 17.7 % (11.5-14.5); WHITE BLOOD COUNT 8.8 x10^3/uL (4.0-11.0)
[2021-09-17 20:46] LABS: BILIRUBIN,URINE NEGATIVE (NEG); CLARITY,URINE CLEAR; COLOR,URINE YELLOW; NITRITE,URINE NEGATIVE (NEG); PH,URINE 5.5 (<5.0-8.0); PROTEIN,URINE NEGATIVE (NEG-TRACE); UROBILINOGEN,URINE 0.2 mg/dL (0.2 mg/dL)
[2021-09-17 20:55] LABS: CALCIUM 9.1 mg/dL (8.5-10.1); CREATININE 3.1 mg/dL (0.7-1.3); GFR 19.8; POTASSIUM 3.9 mmol/L (3.5-5.1)
[2021-09-17 20:58] LABS: BACTERIA,URINE 0 /HPF (0-FEW)
[2021-09-17 21:00] LABS: ALBUMIN 2.6 g/dL (3.4-5.0); ALBUMIN/GLOBULIN RATIO 0.6 (1.0-1.7); TOTAL BILIRUBIN 0.5 mg/dL (0.2-1.0)
[2021-09-17 21:06] LABS: % BANDS 4 % (0-9); % BASOS 1 % (0-3); % EOS 2 % (0-5); % LYMPHS 7 % (24-48); % METAS 1 % (0-0); % MONOS 10 % (0-10); % SEGS 75 % (35-66); ANISOCYTOSIS SLIGHT; PLT ESTIMATE INCREASED (ADEQUATE)
[2021-09-17] MEDS ORDERED: ACETAMINOPHEN 325 MG TABLET. PO PRN (22:00)
[2021-09-17] MEDS ORDERED: ONDANSETRON PF 4 MG/2 ML VIAL. IVP PRN (22:00)
[2021-09-18] VITALS (7 sets, daily range): BP systolic 133–158; BP diastolic 50–71
[2021-09-18] MEDS: fentaNYL PF VIAL 100 MCG/2 ML VIAL IVP PRN ×3 (01:42→20:29)
[2021-09-18 06:50] LABS: BASO % 1 % (0-3); EOS # 0.1 x10^3/uL (0.0-0.7); EOS % 2 % (0-3); HEMATOCRIT 31.7 % (39.0-53.0); LYMPH # 0.7 x10^3/uL (1.0-4.8); LYMPH % 12 % (24-48); MEAN CORPUSCULAR HEMOGLOBIN 28 pg (25-35); MEAN CORPUSCULAR HGB CONC 35 g/dL (31-37); MEAN CORPUSCULAR VOLUME 81 fL (79-100); MONO # 0.6 x10^3/uL (0.0-1.1); MONO % 10 % (0-9); NEUT # 4.5 x10^3/uL (1.8-7.7); NEUT % 76 % (31-73); PLATELET COUNT 451 x10^3/uL (140-400); RED BLOOD COUNT 3.89 x10^6/uL (4.30-5.70); RED CELL DISTRIBUTION WIDTH 17.7 % (11.5-14.5); WHITE BLOOD COUNT 5.9 x10^3/uL (4.0-11.0)
[2021-09-18 07:05] LABS: ALBUMIN 2.3 g/dL (3.4-5.0); ALBUMIN/GLOBULIN RATIO 0.6 (1.0-1.7); CALCIUM 8.5 mg/dL (8.5-10.1); CREATININE 3.1 mg/dL (0.7-1.3); GFR 19.8; POTASSIUM 3.9 mmol/L (3.5-5.1); TOTAL BILIRUBIN 0.4 mg/dL (0.2-1.0); TOTAL PROTEIN 6.2 g/dL (6.4-8.2)
[2021-09-18] MEDS ORDERED: CYCLOBENZAPRINE 10 MG TABLET. PO PRN (10:00)
--- NOTE | 2021-09-18 10:49 | PDOC1 ---
History and Physical Date of Service: DOS: DATE: 09/18/21 TIME: 10:43 Chief Complaint: Problems: (1) Left leg cellulitis Chief Complain: leg pain History of Present Illness: HPI: Patient is a 75 year old male coming in via EMS for right leg cellulitis. Patient was actually d/c from this facility yesterday after a 5-day hospital stay for sepsis secondary to cellulitis on his left lower extremity and type II NSTEMI. Patient went home but was not able to get his prescriptions filled and feels like his leg is getting worse, he states the swelling is worse that he is is able to stand on it. Patient does not have anybody to help him get his medications. [facility] 5 days ago due to the facility being full. When I evaluated the patient he was resting in bed complaining of pain in his leg. He is alert and oriented but does seem somewhat confused. Past Medical/Surgical History: PMH/PSH: Atrial fibrillation Allergies: Allergies: Coded Allergies: Penicillins (Verified Allergy, Intermediate, 09/12/21) "i think im allergic to penicillin" Family History: Family History: Reviewed with patient no known Social History: Social History: former smoker; denies alcohol drug use Current Medications: Current Medications Current Medications Ondansetron HCl (Zofran) 4 mg PRN Q8HRS PRN IVP NAUSEA/VOMITING; Start 09/17/21 at 22:00; Stop 09/18/21 at 21:59 Fentanyl Citrate (Fentanyl 2ml Vial) 50 mcg PRN Q1HR PRN IVP PAIN Last administered on 09/18/21at 09:16; Start 09/17/21 at 22:00; Stop 09/18/21 at 21:59 Acetaminophen (Tylenol) 650 mg PRN Q4HRS PRN PO FEVER > 100.3'F; Start 09/17/21 at 22:00; Stop 09/18/21 at 21:59 Apixaban (Eliquis) 5 mg BID PO ; Start 09/18/21 at 21:00 Aspirin (Ecotrin) 81 mg DAILYWBKFT PO ; Start 09/18/21 at 11:00 Buspirone HCl (Buspar) 10 mg BID PO ; Start 09/18/21 at 11:00 Cefdinir (Omnicef) 300 mg BID PO ; Start 09/18/21 at 11:00 Cyclobenzaprine HCl (Flexeril) 10 mg PRN TID PRN PO MUSCLE PAIN; Start 09/18/21 at 10:00 Diltiazem HCl (Cardizem 24hr Cd) 240 mg DAILY PO ; Start 09/18/21 at 11:00 Doxycycline Hyclate (Vibra-Tab) 100 mg BID PO ; Start 09/18/21 at 11:00 Levothyroxine Sodium (Synthroid) 75 mcg DAILY06 PO ; Start 09/18/21 at 11:00 Ropinirole HCl (Requip) 2 mg TID PO ; Start 09/18/21 at 14:00 Nystatin (Nystop) 1 wood BID TP ; Start 09/18/21 at 11:00 Lactobacillus Rhamnosus (Culturelle) 1 cap BID PO ; Start 09/18/21 at 21:00 Active Scripts Active Buspirone Hcl 10 Mg Tablet 10 Mg PO BID 60 Days Ropinirole Hcl 1 Mg Tablet 2 Mg PO TID 60 Days Levothyroxine Sodium 75 Mcg Tablet 75 Mcg PO DAILY06 60 Days Aspirin Ec (Aspirin) 81 Mg Tablet.dr 81 Mg PO DAILYWBKFT 60 Days Diltiazem 24Hr Cd (Diltiazem HCl) 240 Mg Cap.er.24h 240 Mg PO DAILY 60 Days Eliquis (Apixaban) 5 Mg Tablet 5 Mg PO BID 60 Days Doxycycline Hyclate 100 Mg Tablet 100 Mg PO BID 5 Days Cefdinir 300 Mg Capsule 300 Mg PO BID 5 Days Cyclobenzaprine Hcl 10 Mg Tablet 1 Tab PO TID PRN ROS: Review of Systems Review of System Unless noted in HPI 14 point review systems was negative Physical Exam: Vital Signs: Vital Signs Date Time Temp Pulse Resp B/P (MAP) Pulse Ox O2 Delivery O2 Flow Rate FiO2 09/18/21 09:16 96 Room Air 09/18/21 07:00 98.4 92 18 158/71 (100) 98.4 Physcial Exam: GEN: No apparent distress. Alert and oriented HEENT: Normal cephalic, atraumatic, external auditory canals are patent EYES: Extraocular muscles are intact, pupil are equally round and reactive to light and accommodation MUSCULOSKELETAL: Well developed , well nourished, good range of motion ENDOCRINE: No thyromegaly was palpated LYMPHATICS: No cervical chain or axillary nodes were noted HEMATOPOIETIC: No bruising NECK: Supple, no JVD, no thyromegaly was noted LUNGS: Clear to auscultation in all lung rguber without rhonchi or wheezing HEART: RRR, S1, S2 present. Peripheral pulses intact, no obvious murmurs noted ABDOMEN: Soft, nontender. Positive bowel sounds, no organomegaly, normal bowel sounds EXTREMITIES: Erythema in left lower extremity to the level of mid calf. NEUROLOGIC: Normal speech and tone. A&O x 3, moves all extremities, no obvious focal deficits PSYCHIATRIC: Normal affect, normal mood. Stable SKIN: No ulcerations or rashes, good skin turgor, no jaundice VASCULAR: Good capillary refill, neurovascular bundle appears to be intact Labs: Labs: Laboratory Tests Test 09/17/21 20:20 09/17/21 20:36 09/18/21 05:40 Urine Collection Type Unknown Urine Color Yellow Urine Clarity Clear Urine pH 5.5 (<5.0-8.0) Urine Specific Rye 1.015 (1.000-1.030) Urine Protein Negative mg/dL (NEG-TRACE) Urine Glucose (UA) 500 mg/dL (NEG) Urine Ketones (Stick) Negative mg/dL (NEG) Urine Blood Moderate (NEG) Urine Nitrite Negative (NEG) Urine Bilirubin Negative (NEG) Urine Urobilinogen Dipstick 0.2 mg/dL (0.2 mg/dL) Urine Leukocyte Esterase Trace (NEG) Urine RBC 11-20 /HPF (0-2) Urine WBC 11-20 /HPF (0-4) Urine Squamous Epithelial Cells Few /LPF Urine Bacteria 0 /HPF (0-FEW) Urine Mucus Slight /LPF White Blood Count 8.8 x10^3/uL (4.0-11.0) 5.9 x10^3/uL (4.0-11.0) Red Blood Count 4.07 x10^6/uL (4.30-5.70) 3.89 x10^6/uL (4.30-5.70) Hemoglobin 11.1 g/dL (13.0-17.5) 11.0 g/dL (13.0-17.5) Hematocrit 32.8 % (39.0-53.0) 31.7 % (39.0-53.0) Mean Corpuscular Volume 81 fL (79-100) 81 fL (79-100) Mean Corpuscular Hemoglobin 27 pg (25-35) 28 pg (25-35) Mean Corpuscular Hemoglobin Concent 34 g/dL (31-37) 35 g/dL (31-37) Red Cell Distribution Width 17.7 % (11.5-14.5) 17.7 % (11.5-14.5) Platelet Count 463 x10^3/uL (140-400) 451 x10^3/uL (140-400) Neutrophils (%) (Auto) 79 % (31-73) 76 % (31-73) Lymphocytes (%) (Auto) 9 % (24-48) 12 % (24-48) Monocytes (%) (Auto) 10 % (0-9) 10 % (0-9) Eosinophils (%) (Auto) 2 % (0-3) 2 % (0-3) Basophils (%) (Auto) 0 % (0-3) 1 % (0-3) Neutrophils # (Auto) 7.0 x10^3/uL (1.8-7.7) 4.5 x10^3/uL (1.8-7.7) Lymphocytes # (Auto) 0.8 x10^3/uL (1.0-4.8) 0.7 x10^3/uL (1.0-4.8) Monocytes # (Auto) 0.8 x10^3/uL (0.0-1.1) 0.6 x10^3/uL (0.0-1.1) Eosinophils # (Auto) 0.2 x10^3/uL (0.0-0.7) 0.1 x10^3/uL (0.0-0.7) Basophils # (Auto) 0.0 x10^3/uL (0.0-0.2) 0.0 x10^3/uL (0.0-0.2) Segmented Neutrophils % 75 % (35-66) Band Neutrophils % 4 % (0-9) Lymphocytes % 7 % (24-48) Monocytes % 10 % (0-10) Eosinophils % 2 % (0-5) Basophils % 1 % (0-3) Metamyelocytes % 1 % (0-0) Platelet Estimate Increased (ADEQUATE) Anisocytosis Slight Sodium Level 133 mmol/L (136-145) 135 mmol/L (136-145) Potassium Level 3.9 mmol/L (3.5-5.1) 3.9 mmol/L (3.5-5.1) Chloride Level 98 mmol/L (98-107) 99 mmol/L (98-107) Carbon Dioxide Level 29 mmol/L (21-32) 28 mmol/L (21-32) Anion Gap 6 (6-14) 8 (6-14) Blood Urea Nitrogen 34 mg/dL (8-26) 34 mg/dL (8-26) Creatinine 3.1 mg/dL (0.7-1.3) 3.1 mg/dL (0.7-1.3) Estimated GFR (Cockcroft-Gault) 19.8 19.8 BUN/Creatinine Ratio 11 (6-20) 11 (6-20) Glucose Level 180 mg/dL (70-99) 213 mg/dL (70-99) Calcium Level 9.1 mg/dL (8.5-10.1) 8.5 mg/dL (8.5-10.1) Total Bilirubin 0.5 mg/dL (0.2-1.0) 0.4 mg/dL (0.2-1.0) Aspartate Amino Transf (AST/SGOT) 81 U/L (15-37) 65 U/L (15-37) Alanine Aminotransferase (ALT/SGPT) 106 U/L (16-63) 94 U/L (16-63) Alkaline Phosphatase 359 U/L (46-116) 301 U/L (46-116) Troponin I High Sensitivity 10 ng/L (4-75) Total Protein 7.0 g/dL (6.4-8.2) 6.2 g/dL (6.4-8.2) Albumin 2.6 g/dL (3.4-5.0) 2.3 g/dL (3.4-5.0) Albumin/Globulin Ratio 0.6 (1.0-1.7) 0.6 (1.0-1.7) Ethyl Alcohol Level < 10 mg/dL (0-10) Laboratory Tests Test 09/17/21 20:20 09/17/21 20:36 09/18/21 05:40 Urine Collection Type Unknown Urine Color Yellow Urine Clarity Clear Urine pH 5.5 (<5.0-8.0) Urine Specific Rye 1.015 (1.000-1.030) Urine Protein Negative mg/dL (NEG-TRACE) Urine Glucose (UA) 500 mg/dL (NEG) Urine Ketones (Stick) Negative mg/dL (NEG) Urine Blood Moderate (NEG) Urine Nitrite Negative (NEG) Urine Bilirubin Negative (NEG) Urine Urobilinogen Dipstick 0.2 mg/dL (0.2 mg/dL) Urine Leukocyte Esterase Trace (NEG) Urine RBC 11-20 /HPF (0-2) Urine WBC 11-20 /HPF (0-4) Urine Squamous Epithelial Cells Few /LPF Urine Bacteria 0 /HPF (0-FEW) Urine Mucus Slight /LPF White Blood Count 8.8 x10^3/uL (4.0-11.0) 5.9 x10^3/uL (4.0-11.0) Red Blood Count 4.07 x10^6/uL (4.30-5.70) 3.89 x10^6/uL (4.30-5.70) Hemoglobin 11.1 g/dL (13.0-17.5) 11.0 g/dL (13.0-17.5) Hematocrit 32.8 % (39.0-53.0) 31.7 % (39.0-53.0) Mean Corpuscular Volume 81 fL (79-100) 81 fL (79-100) Mean Corpuscular Hemoglobin 27 pg (25-35) 28 pg (25-35) Mean Corpuscular Hemoglobin Concent 34 g/dL (31-37) 35 g/dL (31-37) Red Cell Distribution Width 17.7 % (11.5-14.5) 17.7 % (11.5-14.5) Platelet Count 463 x10^3/uL (140-400) 451 x10^3/uL (140-400) Neutrophils (%) (Auto) 79 % (31-73) 76 % (31-73) Lymphocytes (%) (Auto) 9 % (24-48) 12 % (24-48) Monocytes (%) (Auto) 10 % (0-9) 10 % (0-9) Eosinophils (%) (Auto) 2 % (0-3) 2 % (0-3) Basophils (%) (Auto) 0 % (0-3) 1 % (0-3) Neutrophils # (Auto) 7.0 x10^3/uL (1.8-7.7) 4.5 x10^3/uL (1.8-7.7) Lymphocytes # (Auto) 0.8 x10^3/uL (1.0-4.8) 0.7 x10^3/uL (1.0-4.8) Monocytes # (Auto) 0.8 x10^3/uL (0.0-1.1) 0.6 x10^3/uL (0.0-1.1) Eosinophils # (Auto) 0.2 x10^3/uL (0.0-0.7) 0.1 x10^3/uL (0.0-0.7) Basophils # (Auto) 0.0 x10^3/uL (0.0-0.2) 0.0 x10^3/uL (0.0-0.2) Segmented Neutrophils % 75 % (35-66) Band Neutrophils % 4 % (0-9) Lymphocytes % 7 % (24-48) Monocytes % 10 % (0-10) Eosinophils % 2 % (0-5) Basophils % 1 % (0-3) Metamyelocytes % 1 % (0-0) Platelet Estimate Increased (ADEQUATE) Anisocytosis Slight Sodium Level 133 mmol/L (136-145) 135 mmol/L (136-145) Potassium Level 3.9 mmol/L (3.5-5.1) 3.9 mmol/L (3.5-5.1) Chloride Level 98 mmol/L (98-107) 99 mmol/L (98-107) Carbon Dioxide Level 29 mmol/L (21-32) 28 mmol/L (21-32) Anion Gap 6 (6-14) 8 (6-14) Blood Urea Nitrogen 34 mg/dL (8-26) 34 mg/dL (8-26) Creatinine 3.1 mg/dL (0.7-1.3) 3.1 mg/dL (0.7-1.3) Estimated GFR (Cockcroft-Gault) 19.8 19.8 BUN/Creatinine Ratio 11 (6-20) 11 (6-20) Glucose Level 180 mg/dL (70-99) 213 mg/dL (70-99) Calcium Level 9.1 mg/dL (8.5-10.1) 8.5 mg/dL (8.5-10.1) Total Bilirubin 0.5 mg/dL (0.2-1.0) 0.4 mg/dL (0.2-1.0) Aspartate Amino Transf (AST/SGOT) 81 U/L (15-37) 65 U/L (15-37) Alanine Aminotransferase (ALT/SGPT) 106 U/L (16-63) 94 U/L (16-63) Alkaline Phosphatase 359 U/L (46-116) 301 U/L (46-116) Troponin I High Sensitivity 10 ng/L (4-75) Total Protein 7.0 g/dL (6.4-8.2) 6.2 g/dL (6.4-8.2) Albumin 2.6 g/dL (3.4-5.0) 2.3 g/dL (3.4-5.0) Albumin/Globulin Ratio 0.6 (1.0-1.7) 0.6 (1.0-1.7) Ethyl Alcohol Level < 10 mg/dL (0-10) Assessment/Plan Assessment/Plan Left lower extremity cellulitis, possible VTE, history of A. fib -Patient discharged yesterday after treatment for left lower extremity cellulitis. Went home said he felt his legs getting worse -Presented emergency room. -Patient's leg is definitely still pretty erythematous will resume antibiotics he was discharged on -With swelling will check duplex -Home meds resumed as indicated -Home Eliquis will serve as DVT prophylaxis -Cardiac diet Justifications for Admission Other Justification Cellulitis FRED RAYMOND MD Sep 18, 2021 10:49
--- NOTE | 2021-09-18 10:54 | RAD ---
EXAM: Left lower extremity venous Doppler sonogram. HISTORY: Pain and swelling. TECHNIQUE: Avila scale and color Doppler sonographic evaluation of the left lower extremity veins with spectral waveform analysis was performed. FINDINGS: There is normal color flow, normal compressibility and there are normal spectral waveforms in the common femoral, superficial femoral, popliteal, posterior tibial and greater saphenous veins. IMPRESSION: No Doppler evidence of lower extremity deep venous thrombosis. Electronically signed by: Monalisa Barnes MD (09/18/2021 10:52 AM) [id number]
[2021-09-18] MEDS ORDERED: CEFDINIR 300 MG CAPSULE PO SCH (11:00)
[2021-09-18] MEDS: ASPIRIN ENTERIC COATED 81 MG TABLET.DR. PO SCH (11:48)
[2021-09-18] MEDS: LEVOTHYROXINE 75 MCG TABLET PO SCH (11:48)
[2021-09-18] MEDS: busPIRone 10 MG TABLET. PO SCH ×2 (11:48→20:29)
[2021-09-18] MEDS: DOXYCYCLINE HYCLATE 100 MG TABLET PO SCH ×2 (11:48→20:29)
[2021-09-18] MEDS: NYSTATIN TOPICAL POWDER 15GM BOTTLE. TP SCH ×2 (11:52→20:29)
[2021-09-18] MEDS: rOPINIRole 1 MG TABLET. PO SCH ×2 (13:09→20:29)
--- NOTE | 2021-09-18 15:30 | NUR ---
Wound/Ostomy Care Wound Type/Assessment: Patient Seen per wound care consult. See wound assessment. Patient has cellulitis to left lower leg. Patient just was discharged yesterday from [facility]. the left lower leg cleansed, assessed, measured, and pictured. It appears that there is a pus sitting underneath and might benefit from a bedside debridement with our wound care physician. Treatment Recommendations/Plan: Recommendations for medi-honey gel applied to xeroform gauze and cover with ABD pad and kerlix. We jeannine leave this dressing in place until thursday and wound care will see patient again with our physician. This will allow the honey more time to work. Dressing applied.. Education provided: Patient educated on dressing changes and PU prevention. Offloading surface/device: N/A Recommended Referrals/Tests: Patient had venous reflux study today but may need and arterial US. Discharge Recommendations for dressings: Dressing change instructions left in room. Wound care will follow up on 09/20/[address] Whitley. Bed lowered and call light in reach.
[2021-09-18] MEDS: LACTOBACILLUS RHAMNOSUS GG 1 CAPSULE. PO SCH (20:29)
[2021-09-18] MEDS: APIXABAN 5 MG TABLET. PO SCH (20:29)
[2021-09-19 03:32] VITALS: BP 143/98
[2021-09-19] MEDS: LEVOTHYROXINE 75 MCG TABLET PO SCH (05:56)
[2021-09-19 07:00] VITALS: BP 141/66
[2021-09-19] MEDS: DOXYCYCLINE HYCLATE 100 MG TABLET PO SCH ×2 (08:19→20:02)
[2021-09-19] MEDS: busPIRone 10 MG TABLET. PO SCH ×2 (08:19→20:01)
[2021-09-19] MEDS: rOPINIRole 1 MG TABLET. PO SCH ×3 (08:19→20:02)
[2021-09-19] MEDS: ASPIRIN ENTERIC COATED 81 MG TABLET.DR. PO SCH (08:19)
[2021-09-19] MEDS: LACTOBACILLUS RHAMNOSUS GG 1 CAPSULE. PO SCH ×2 (08:19→20:02)
[2021-09-19] MEDS: CEFDINIR 300 MG CAPSULE PO SCH (08:19)
[2021-09-19] MEDS: NYSTATIN TOPICAL POWDER 15GM BOTTLE. TP SCH ×2 (08:23→20:02)
[2021-09-19] MEDS: APIXABAN 5 MG TABLET. PO SCH ×2 (08:23→20:02)
[2021-09-19 11:00] VITALS: BP 147/72
--- NOTE | 2021-09-19 11:58 | NUR ---
explained t=hat we would dismiss in am . He can go to his wound clinic appt then he can go home. states that he would need a ride home and we would need to give his medications
[2021-09-19] MEDS ORDERED: ANTI-COAG MONITOR BY PHARMACY. MC PRN (12:00)
[2021-09-19 15:00] VITALS: BP 115/96
--- NOTE | 2021-09-19 15:15 | NUR ---
Wound/Ostomy Care Wound Type/Assessment: Patient Seen per wound care consult. See wound assessment. Patient has cellulitis to left lower leg. the left lower leg cleansed, assessed, measured, and pictured. Nallely Peñaloza APRN did bedside debridement of dry yellow drainage with currette, no viable tissue removed. Treatment Recommendations/Plan: Recommendations for medi-honey gel applied to xeroform gauze and cover with ABD pad and kerlix. Change every 2-3 days Education provided: Patient educated on dressing changes and PU prevention. Offloading surface/device: N/A Recommended Referrals/Tests: Patient had venous reflux study today but may need and arterial US. Discharge Recommendations for dressings: Dressing change instructions left in room. Wound care will follow up on 09/23/[address] Lindsey. Bed lowered and call light in reach.
--- NOTE | 2021-09-19 15:47 | PDOC ---
[employer] PROGRESS NOTE Date of Service DOS: DATE: 09/19/21 TIME: 15:44 Chief Complaint Chief Complaint Assessment/Plan Left lower extremity cellulitis, possible VTE, history of A. fib -Patient discharged yesterday after treatment for left lower extremity cellulitis. Went home said he felt his legs getting worse -Presented emergency room. -Patient's leg is definitely still pretty erythematous will resume antibiotics he was discharged on -With swelling will check duplex --> nergative -Home meds resumed as indicated -Home Eliquis will serve as DVT prophylaxis -Cardiac diet History of Present Illness History of Present Illness Patient is a 75 year old male coming in via EMS for right leg cellulitis. Patient was actually d/c from this facility yesterday after a 5-day hospital stay for sepsis secondary to cellulitis on his left lower extremity and type II NSTEMI. Patient went home but was not able to get his prescriptions filled and feels like his leg is getting worse, he states the swelling is worse that he is is able to stand on it. Patient does not have anybody to help him get his medications. [facility] 5 days ago due to the facility being full. When I evaluated the patient he was resting in bed complaining of pain in his leg. He is alert and oriented but does seem somewhat confused. 09/19 Patient evaluated examined at bedside. Erythema and cellulitis continues to improve. Wound care to evaluate patient later this afternoon as well. Continue current antibiotics. Patient told me he "will not leave unless you give me all of my prescriptions I need." Informed him I will work on this but no guarantees we can get his antibiotic prescription from the hospital here. [facility] Either way wound care to see patient today. Probable discharge tomorrow. Vitals/I&O Vitals/I&O: Vital Signs Date Time Temp Pulse Resp B/P (MAP) Pulse Ox O2 Delivery O2 Flow Rate FiO2 09/19/21 15:00 98.3 74 20 115/96 (102) 96 98.3 09/19/21 07:37 Room Air I & O 09/18/21 09/18/21 09/19/21 15:00 23:00 07:00 Intake Total 240 ml 540 ml Output Total 400 ml 550 ml 500 ml Balance -400 ml -310 ml 40 ml Physical Exam General: Alert, Oriented X3, Cooperative Heart: Regular rate, Normal S1, Normal S2 Lungs: Clear Abdomen: Normal bowel sounds, Soft, No tenderness Extremities: No edema, Normal pulses Skin: Other (erythema on LLE to level of mid calf) Comment Review of Relevant I have reviewed the following items vincenzo (where applicable) has been applied. Medications: Current Medications Medications (Trade) Dose Ordered Sig/Lisa Route PRN Reason Start Time Stop Time Status Last Admin Dose Admin Apixaban (Eliquis) 5 mg BID PO 09/18/21 21:00 09/19/21 08:23 Lactobacillus Rhamnosus (Culturelle) 1 cap BID PO 09/18/21 21:00 09/19/21 08:19 Cefdinir (Omnicef) 300 mg DAILY PO 09/19/21 09:00 09/19/21 08:19 Info (Anti-Coagulation Monitoring By Pharmacy) 1 each PRN DAILY PRN MC PER PROTOCOL 09/19/21 12:00 09/19/21 12:11 Justifications for Admission Other Justification Cellulitis FRED RAYMOND MD Sep 19, 2021 15:47
--- NOTE | 2021-09-19 16:27 | PDOC2 ---
Chief Complaint: Chief Complaint: LLE cellulitis Vital Signs: Vital Signs: Vital Signs Date Time Temp Pulse Resp B/P (MAP) Pulse Ox O2 Delivery O2 Flow Rate FiO2 09/18/21 07:00 98.4 92 18 158/71 (100) 96 98.4 09/18/21 08:00 Room Air Vital Signs Date Time Temp Pulse Resp B/P (MAP) Pulse Ox O2 Delivery O2 Flow Rate FiO2 09/19/21 15:00 98.3 74 20 115/96 (102) 96 98.3 09/19/21 07:37 Room Air Allergies: Allergies: Allergies Coded Allergies Type Severity Reaction Last Updated Verified Penicillins Allergy Intermediate 09/12/21 Yes Medications: Home Meds Active Scripts Buspirone Hcl (BUSPIRONE HCL) 10 Mg Tablet, 10 MG PO BID for Aniety for 60 Days, #120 TAB Prov:FRED RAYMOND MD 09/17/21 Ropinirole Hcl (ROPINIROLE HCL) 1 Mg Tablet, 2 MG PO TID for RLS for 60 Days, #360 TAB Prov:FRED RAYMOND MD 09/17/21 Levothyroxine Sodium (LEVOTHYROXINE SODIUM) 75 Mcg Tablet, 75 MCG PO DAILY06 for Hypothyroids for 60 Days, #60 TAB Prov:FRED RAYMOND MD 09/17/21 Aspirin (ASPIRIN EC) 81 Mg Tablet.dr, 81 MG PO DAILYWBKFT for CAD for 60 Days, #60 TAB.SR Prov:FRED RAYMOND MD 09/17/21 Diltiazem HCl (Diltiazem 24Hr Cd) 240 Mg Cap.er.24h, 240 MG PO DAILY for Htn for 60 Days, #60 CAP.SR Prov:FRED RAYMOND MD 09/17/21 Apixaban (ELIQUIS) 5 Mg Tablet, 5 MG PO BID for Afib for 60 Days, #120 TAB Prov:FRED RAYMOND MD 09/17/21 Doxycycline Hyclate (DOXYCYCLINE HYCLATE) 100 Mg Tablet, 100 MG PO BID for Infection for 5 Days, #10 TAB Prov:FRED RAYMOND MD 09/17/21 Cefdinir (CEFDINIR) 300 Mg Capsule, 300 MG PO BID for Infection for 5 Days, #10 CAP Prov:FRED RAYMOND MD 09/17/21 Cyclobenzaprine Hcl (CYCLOBENZAPRINE HCL) 10 Mg Tablet, 1 TAB PO TID PRN for MUSCLE PAIN, #30 TAB Prov:ELEAZAR JORDAN DO 10/17/16 Discontinued Scripts Naproxen (NAPROXEN) 500 Mg Tablet, 1 TAB PO BID PRN for PAIN, #30 TAB 1 Refill Prov:ELEAZAR JORDAN DO 10/17/16 PCP: PCP: Dr Raymond Pain: Pain Location: Leg (Left leg, 02/09 with palpation and cleansing) Date of Onset Patient reports falling at home last week. Patient states that when he woke up he was in the hospital and his left leg was painful and erythemic. Patient denies history of difficulty with wound healing. Patient does have underlying diabetes however it is well controlled on oral medication. Patient does report swelling of his lower extremities. Patient has been recommended to wear co mpression stockings to his bilateral lower extremities for his lymphedema. Patient denies history of vascular work-up in the past. Review of Systems: Patient complains of painful symptoms on the left lower extremity with palpation and cleansing. Patient denies fever or body aches. Patient denies cough or shortness of breath. Patient states that he has been eating and drinking well without nausea, vomiting or diarrhea. Physical Exam Patient awake and alert 75-year-old male in no apparent distress. Patient appears to be a good historian with intermittent bouts of dementia and anxiety. Vital signs are stable. Patient is afebrile. Respirations are even and unlabored. Patient is on room air not requiring supplemental oxygen. Abdomen is soft, nondistended and nontender to palpation. Skin is warm, dry and pink. The patient does have a scabbed region to his right knee. Scab is intact without surrounding erythema. The left lower extremity presents with a patch of erythema with overlying nonviable tissue. Following patient consent, nonviable tissue removed with sterile curette. Patient complained of minimal painful symptoms with procedure with were relieved following procedure. No bleeding occurred. Following procedure exposed wound bed 100% pink smooth tissue. A/P Left lower extremity cellulitis -Nonviable tissue removed at bedside using sterile curette. Underlying exposed tissue with 100% pink smooth presentation. -Cleanse and pat dry. Apply Thera honey and cover with Xeroform, ABD and Kerlix. Change daily or as needed if dressing loose or saturated -Keep legs up and elevated as much as possible -ID consulting for antibiotic regimen -Recommend patient follow-up with wound care center following hospital discharge SUZIE LUCERO RISK CONTROL ANALYST Sep 19, 2021 16:27
[2021-09-19 19:00] VITALS: BP 143/75
[2021-09-19 23:00] VITALS: BP 138/71
[2021-09-20 03:00] VITALS: BP 136/71
[2021-09-20] MEDS: LEVOTHYROXINE 75 MCG TABLET PO SCH (05:37)
[2021-09-20 07:00] VITALS: BP 151/79
[2021-09-20] MEDS: busPIRone 10 MG TABLET. PO SCH (07:57)
[2021-09-20] MEDS: LACTOBACILLUS RHAMNOSUS GG 1 CAPSULE. PO SCH (07:57)
[2021-09-20] MEDS: ASPIRIN ENTERIC COATED 81 MG TABLET.DR. PO SCH (07:57)
[2021-09-20] MEDS: rOPINIRole 1 MG TABLET. PO SCH (07:57)
[2021-09-20] MEDS: CEFDINIR 300 MG CAPSULE PO SCH (07:57)
[2021-09-20] MEDS: DOXYCYCLINE HYCLATE 100 MG TABLET PO SCH (07:58)
[2021-09-20] MEDS: APIXABAN 5 MG TABLET. PO SCH (07:58)
[2021-09-20] MEDS: NYSTATIN TOPICAL POWDER 15GM BOTTLE. TP SCH (07:58)
[2021-09-20] MEDS ORDERED: CEFD300C PO (09:24)
[2021-09-20] MEDS ORDERED: DOXY100T PO (09:24)
--- NOTE | 2021-09-20 09:27 | SNU/HH DC ---
DISCHARGE WITH HOME HEALTH DISCHARGE INFORMATION: Discharge Date: Sep 20, 2021 Final Diagnosis: Cellulitis Condition on Discharge: Stable CODE STATUS: Code Status: Full HOME HEALTH: Face to Face: I certify this patient is under my care and that I, or a nurse practitioner or physician's research assistant member working with me, had a face to face encounter that meets t he physician face to face encounter requirements with this patient on [09/20/21]. Retirement For: Assess Cardiopulm Status, Assess & Educate Safety, Assess/Skilled Observatio RN For Eval/Treatment: Yes Physical Therapy For: Evalulation/Treatment Occupational Therapy For: Evaluation/Treatment Pt Meets Homebound Status: Unsteady balance w/ amb,, Extreme weakness w/ amb., Fatigue w/ amb. POST DISCHARGE ORDERS: Activity Instructions for Disc: Activity as tolerated Weight Bearing Status after Di: As tolerated DIET AFTER DISCHARGE: Regular Wound/Incision Care: Other, see below CHECKS AFTER DISCHARGE: Checks after discharge: Check blood press - daily, Check your Temp as needed TREATMENT/EQUIPMENT ORDERS: Adaptive Equipment Issued: None CERTIFICATION STATEMENT: Certification Statement: Certification Statement: Based on the above finding, I certify that this patient is confined to the home and needs intermittent mcc care, physical t herapy and/or speech therapy, or continues to need occupational therapy.~ This patient is under my care, and I have initiated the establishment of the plan of care.~ This patient will be followed by myself or a community physician who will periodically review the plan of care. Home Meds Active Scripts Doxycycline Hyclate (DOXYCYCLINE HYCLATE) 100 Mg Tablet, 100 MG PO BID for cellulitis for 5 Days, #10 TAB Prov:FRED RAYMOND MD 09/20/21 Cefdinir (CEFDINIR) 300 Mg Capsule, 300 MG PO DAILY for cellulitis for 5 Days, #5 CAP Prov:FRED RAYMOND MD 09/20/21 Buspirone Hcl (BUSPIRONE HCL) 10 Mg Tablet, 10 MG PO BID for Aniety for 60 Days, #120 TAB Prov:FRED RAYMOND MD 09/17/21 Ropinirole Hcl (ROPINIROLE HCL) 1 Mg Tablet, 2 MG PO TID for RLS for 60 Days, #360 TAB Prov:FRED RAYMOND MD 09/17/21 Levothyroxine Sodium (LEVOTHYROXINE SODIUM) 75 Mcg Tablet, 75 MCG PO DAILY06 for Hypothyroids for 60 Days, #60 TAB Prov:FRED RAYMOND MD 09/17/21 Aspirin (ASPIRIN EC) 81 Mg Tablet.dr, 81 MG PO DAILYWBKFT for CAD for 60 Days, #60 TAB.SR Prov:FRED RAYMOND MD 09/17/21 Diltiazem HCl (Diltiazem 24Hr Cd) 240 Mg Cap.er.24h, 240 MG PO DAILY for Htn for 60 Days, #60 CAP.SR Prov:FRED RAYMOND MD 09/17/21 Apixaban (ELIQUIS) 5 Mg Tablet, 5 MG PO BID for Afib for 60 Days, #120 TAB Prov:FRED RAYMOND MD 09/17/21 Cyclobenzaprine Hcl (CYCLOBENZAPRINE HCL) 10 Mg Tablet, 1 TAB PO TID PRN for MUSCLE PAIN, #30 TAB Prov:ELEAZAR JORDAN DO 10/17/16 Discontinued Scripts Doxycycline Hyclate (DOXYCYCLINE HYCLATE) 100 Mg Tablet, 100 MG PO BID for Infection for 5 Days, #10 TAB Prov:FRED RAYMOND MD 09/17/21 Cefdinir (CEFDINIR) 300 Mg Capsule, 300 MG PO BID for Infection for 5 Days, #10 CAP Prov:FRED RAYMOND MD 09/17/21 Naproxen (NAPROXEN) 500 Mg Tablet, 1 TAB PO BID PRN for PAIN, #30 TAB 1 Refill Prov:ELEAZAR JORDAN DO 10/17/16 FRED RAYMOND MD Sep 20, 2021 09:27
[2021-09-20 11:00] VITALS: BP 101/65
--- NOTE | 2021-09-20 11:10 | PDOC3 ---
[facility]-Discharge Summary Date of Admission: Date of Admission: Sep 18, 2021 Date of Discharge: Date of Discharge: Sep 20, 2021 Admission Diagnosis: Problems: (1) Left leg cellulitis Discharge Diagnosis: Discharge Diagnosis: Same Consults: Consults: Wound care Hospital Course: Hospital Course: [facility] Complaint Assessment/Plan Left lower extremity cellulitis, possible VTE, history of A. fib -Patient discharged yesterday after treatment for left lower extremity cellulitis. Went home said he felt his legs getting worse -Presented emergency room. -Patient's leg is definitely still pretty erythematous will resume antibiotics he was discharged on -With swelling will check duplex --> nergative -Home meds resumed as indicated -Home Eliquis will serve as DVT prophylaxis -Cardiac diet History of Present Illness History of Present Illness Patient is a 75 year old male coming in via EMS for right leg cellulitis. Patient was actually d/c from this facility yesterday after a 5-day hospital stay for sepsis secondary to cellulitis on his left lower extremity and type II NSTEMI. Patient went home but was not able to get his prescriptions filled and feels like his leg is getting worse, he states the swelling is worse that he is is able to stand on it. Patient does not have anybody to help him get his medications. [facility] 5 days ago due to the facility being full. When I evaluated the patient he was resting in bed complaining of pain in his leg. He is alert and oriented but does seem somewhat confused. 09/19 Patient evaluated examined at bedside. Erythema and cellulitis continues to improve. Wound care to evaluate patient later this afternoon as well. Continue current antibiotics. Patient told me he "will not leave unless you give me all of my prescriptions I need." Informed him I will work on this but no guarantees we can get his antibiotic prescription from the hospital here. [facility] Either way wound care to see patient today. Probable discharge tomorrow. 09/20 Patient evaluated and examined at bedside. Ready for discharge agree that he can discharge today. Wound care note from yesterday reviewed. Prescription sent to the [place] pharmacy and patient instructed to pick them up there. Follow-up with wound care. I spent greater than 30 minutes on the discharge of patient. 18 minutes of advance care planning discussed with patient. Disposition: Disposition/Orders: D/C to Home w/ HH Activity: Activity: Resume previous activity Diet: Diet: Regular Medications: Home Meds Active Scripts Doxycycline Hyclate (DOXYCYCLINE HYCLATE) 100 Mg Tablet, 100 MG PO BID for cellulitis for 5 Days, #10 TAB Prov:FRED RAYMOND MD 09/20/21 Cefdinir (CEFDINIR) 300 Mg Capsule, 300 MG PO DAILY for cellulitis for 5 Days, #5 CAP Prov:FRED RAYMOND MD 09/20/21 Buspirone Hcl (BUSPIRONE HCL) 10 Mg Tablet, 10 MG PO BID for Aniety for 60 Days, #120 TAB Prov:FRED RAYMOND MD 09/17/21 Ropinirole Hcl (ROPINIROLE HCL) 1 Mg Tablet, 2 MG PO TID for RLS for 60 Days, #360 TAB Prov:FRED RAYMOND MD 09/17/21 Levothyroxine Sodium (LEVOTHYROXINE SODIUM) 75 Mcg Tablet, 75 MCG PO DAILY06 for Hypothyroids for 60 Days, #60 TAB Prov:FRED RAYMOND MD 09/17/21 Aspirin (ASPIRIN EC) 81 Mg Tablet.dr, 81 MG PO DAILYWBKFT for CAD for 60 Days, #60 TAB.SR Prov:FRED RAYMOND MD 09/17/21 Diltiazem HCl (Diltiazem 24Hr Cd) 240 Mg Cap.er.24h, 240 MG PO DAILY for Htn for 60 Days, #60 CAP.SR Prov:FRED RAYMOND MD 09/17/21 Apixaban (ELIQUIS) 5 Mg Tablet, 5 MG PO BID for Afib for 60 Days, #120 TAB Prov:FRED RAYMOND MD 09/17/21 Cyclobenzaprine Hcl (CYCLOBENZAPRINE HCL) 10 Mg Tablet, 1 TAB PO TID PRN for MUSCLE PAIN, #30 TAB Prov:ELEAZAR JORDAN DO 10/17/16 Discontinued Scripts Doxycycline Hyclate (DOXYCYCLINE HYCLATE) 100 Mg Tablet, 100 MG PO BID for Inf ection for 5 Days, #10 TAB Prov:FRED RAYMOND MD 09/17/21 Cefdinir (CEFDINIR) 300 Mg Capsule, 300 MG PO BID for Infection for 5 Days, #10 CAP Prov:FRED RAYMOND MD 09/17/21 Naproxen (NAPROXEN) 500 Mg Tablet, 1 TAB PO BID PRN for PAIN, #30 TAB 1 Refill Prov:ELEAZAR JORDAN DO 10/17/16 Scheduled Apixaban (Eliquis), 5 MG PO BID Aspirin (Aspirin Ec), 81 MG PO DAILYWBKFT Buspirone Hcl (Buspirone Hcl), 10 MG PO BID Cefdinir (Cefdinir), 300 MG PO DAILY Diltiazem HCl (Diltiazem 24Hr Cd), 240 MG PO DAILY Doxycycline Hyclate (Doxycycline Hyclate), 100 MG PO BID Levothyroxine Sodium (Levothyroxine Sodium), 75 MCG PO DAILY06 Ropinirole Hcl (Ropinirole Hcl), 2 MG PO TID Scheduled PRN Cyclobenzaprine Hcl (Cyclobenzaprine Hcl), 1 TAB PO TID PRN for MUSCLE PAIN Discontinued Medications Cefdinir (Cefdinir), 300 MG PO BID Doxycycline Hyclate (Doxycycline Hyclate), 100 MG PO BID Naproxen (Naproxen), 1 TAB PO BID PRN for PAIN Justicifation of Admission Dx: Justifications for Admission: Justification of Admission Dx: Yes FRED RAYMOND MD Sep 20, 2021 11:10
--- NOTE | 2021-09-20 12:33 | NUR ---
Patient left around 1235 with [facility] transportation. Wound care treatment/orders copied from the wound care clinic team and given to the patient for further instructions/dressing changes. IV removed without complications. Dressing to LLE CDI upon discharge. Patient was able to shower prior to discharge without complications noted. Patients girlfriend Deidre notified of patients discharge who stated [facility] as long as we can "get him home". No concerns noted at discharge.
== END 2021-09-20 12:45 | disposition home health service (06) | DRG 603 ==
LOC: ER 19:47 → ED HOLD 21:40 → 5 NORTH 09-18 00:07
PROVIDERS: ADMIT Internal Medicine; ATTEND Internal Medicine
DX: L03.116 Cellulitis of left lower limb (principal); I82.90 Acute embolism and thrombosis of unspecified vein; E11.9 Type 2 diabetes mellitus without complications; G20 Parkinson's disease; I25.2 Old myocardial infarction; I48.91 Unspecified atrial fibrillation; L03.115 Cellulitis of right lower limb; Z87.891 Personal history of nicotine dependence; G25.81 Restless legs syndrome; I25.10 Atherosclerotic heart disease of native coronary artery without angina pectoris; I10 Essential (primary) hypertension; F41.9 Anxiety disorder, unspecified; F03.90 Unspecified dementia, unspecified severity, without behavioral disturbance, psychotic disturbance, mood disturbance, and anxiety; Z88.0 Allergy status to penicillin
CPT/HCPCS: 36415; 80053; 81001; 84484; 85007; 85025; 87086; 93971; 96374; G0480; J3010; 97116-GP; 97530-GP; 97535-GO; 99285-25; G0378